=== PATIENT | female | born 1930 | race Caucasian/White ===

== ENCOUNTER 2016-06-11 23:47 | Inpatient (IN) | payer MEDICARE, OTHER ==
[~2016-06-11] VITALS: Ht 149.9 cm; Wt 69.0 kg
[~2016-06-11 23:47] MED LIST: BACL10TA PO; BUME0.5T; CART120C2 PO; COUM1TAB PO; DIGO.125 PO; GLIM1 PO; GLUCTAB; LEXA5TAB PO; METO25 PO; NEUR100C PO; POTA-243; SLOWTAB PO; SPIR25
[2016-06-11 23:49] VITALS: BP 224/114; PULSE 63; RESP 18; O2SAT 98
[2016-06-11 23:59] VITALS: BP 169/70; PULSE 61; RESP 18; O2SAT 100
[2016-06-12] VITALS (8 sets, daily range): BP systolic 114–191; BP diastolic 56–80; PULSE 63–76; RESP 16–17; TEMP 97.6–98; O2SAT 94–100
--- NOTE | 2016-06-12 00:36 | PD ---
HPI Chief Complaint: Cardiac Complaint Time Seen by Provider: 00:36 Travel History International Travel<30 days: No Contact w/Intl Traveler<30days: No Traveled to known affect area: No History of Present Illness HPI 85-year-old female came to the emergency room brought by EMS with history of sudden onset left arm pain that was excruciating at 10:30 PM. Patient says that the entire arm felt like it was cramping and felt heavy. Patient thought that she was having a stroke. This lasted for almost 2 hours. Patient says currently she feels like the sensation is slowly coming back and the pain has eased. The fingers are little bit tingly. Earlier because of the pain she was unable to move her fingers at all. She says her arm still feels cold compared to her right arm. She has never had this kind of pain in the past. No history of chest pain. Patient does have history of coronary artery disease and is on Plavix. She also has history of atrial fibrillation she said and is not on any anticoagulants. Her niece with her is here. Patient says that initially she wanted to go to [facility] but she was told that the machine was down and hence she should come to this emergency room by paramedics. Currently she is little anxious but otherwise appears to be comfortable. Vital signs are stable. No history of syncopal episode or shortness of breath. [facility] Past Medical History Narrative Medical List of her past medical, surgical, social and family history is reviewed from the nursing note. Atrial Fibrillation: Yes Congestive Heart Failure: Yes Diabetes: Yes Patient Takes Glucophage: No Hypertension: Yes ?: Not Past Surgical History Appendectomy: Yes Cholecystectomy: Yes Tonsillectomy: Yes Social History Alcohol Use: No Tobacco Use: No Substance Use: No Allergies-Medications (Allergen,Severity, Reaction): Coded Allergies: Sulfa (Verified Allergy, Mild, 06/11/16) Comments List of her allergies reviewed from the nursing note. Reported Meds & Prescriptions Reported Meds & Active Scripts Active Reported Requip (Ropinirole) 4 Mg Tab 4 Mg PO TID Hydrocodone-Acetaminophen 5-325 mg Tab 1 Tab PO Q4H PRN Escitalopram (Escitalopram Oxalate) 10 Mg Tab 10 Mg PO DAILY Omeprazole 40 Mg Cap 40 Mg PO DAILY Flexeril (Cyclobenzaprine HCl) 10 Mg Tab 10 Mg PO HS Trazodone (Trazodone HCl) 50 Mg Tab 50 Mg PO HS Plavix (Clopidogrel Bisulfate) 75 Mg Tab 75 Mg PO DAILY Probiotic (Lactobacillus Acidophilus) 1 Cap Cap 1 Cap PO BID Metoprolol Tartrate 25 Mg Tab 25 Mg PO DAILY Bumetanide 2 Mg Tab 2 Mg PO BID Aspirin 81 Mg Tabdr 81 Mg PO DAILY Ditropan (Oxybutynin Chloride) 5 Mg Tab 5 Mg PO DAILY Lisinopril 10 Mg Tab 10 Mg PO DAILY Lovastatin 20 Mg Tab 20 Mg PO HS Potassium Chloride Microencaps 10 Meq Tab 10 Meq PO DAILY Gabapentin 300 Mg Cap 400 Mg PO TID Carbidopa-Levodopa ER 50-200 Mg Tab 1 Tab PO DAILY Zafirlukast 20 Mg Tab 20 Mg PO DAILY Narrative Medication List of her home medications reviewed from the nursing note. Review of Systems Except as stated in HPI: all other systems reviewed are Neg Physical Exam Narrative GENERAL: Awake, alert, elderly, anxious, no obvious distress SKIN: Focused skin assessment warm/dry. HEAD: Atraumatic. Normocephalic. EYES: Pupils equal and round. No scleral icterus. No injection or drainage. ENT: No nasal bleeding or discharge. Mucous membranes pink and moist. NECK: Trachea midline. No JVD. CARDIOVASCULAR: Regular rate and rhythm. No murmur appreciated. RESPIRATORY: No accessory muscle use. Clear to auscultation. Breath sounds equal bilaterally. GASTROINTESTINAL: Abdomen soft, non-tender, nondistended. Hepatic and splenic margins not palpable. MUSCULOSKELETAL: No obvious deformities. No clubbing. No cyanosis. No edema. Left upper extremity appears to be cool and little pale compared to the right upper extremity. Distal pulses are weak on both upper extremity. Dopplerable pulses for ulna and radius present in the left extremity. NEUROLOGICAL: Awake and alert. No obvious cranial nerve deficits. Motor grossly within normal limits. Normal speech. PSYCHIATRIC: Appropriate mood and affect; insight and judgment normal. Data Data Last Documented VS Vital Signs Date Time Temp Pulse Resp B/P Pulse Ox O2 Delivery O2 Flow Rate FiO2 06/12/16 03:45 66 16 191/80 94 Room Air 06/11/16 23:59 1 Orders Electrocardiogram (06/12/16 00:54) Basic Metabolic Panel (Bmp) (06/12/16 00:54) Ckmb (Isoenzyme) Profile (06/12/16 00:54) Complete Blood Count With Diff (06/12/16 00:54) Magnesium (Mg) (06/12/16 00:54) Prothrombin Time / Inr (Pt) (06/12/16 00:54) Act Partial Throm Time (Ptt) (06/12/16 00:54) Troponin I (06/12/16 00:54) Chest, Single Ap (06/12/16 00:54) Ecg Monitoring (06/12/16 00:54) Bilateral Bp Monitoring (06/12/16 00:54) Iv Access Insert/Monitor (06/12/16 00:54) Oximetry (06/12/16 00:54) Oxygen Administration (06/12/16 00:54) Sodium Chloride 0.9% Flush (Ns Flush) (06/12/16 01:00) Cta Up Extrem W Iv Cont W 3d (06/12/16 ) Ropinirole Hcl (Requip) (06/12/16 03:00) Iohexol 350 Inj (Omnipaque 350 Inj) (06/12/16 03:22) Heparin Infusion SAMANTHA.Q1H (06/12/16 03:51) Heparin Inj (Heparin Inj) (06/12/16 04:00) Heparin Inj (Heparin Inj) (06/12/16 10:00) Heparin Inj (Heparin Inj) (06/12/16 10:00) Heparin-D5w Inj (Heparin-D5w Inj) (06/12/16 04:00) Act Partial Throm Time (Ptt) (06/12/16 03:51) Cbc No Diff, Includes Plts (06/12/16 03:51) Cbc No Diff, Includes Plts (06/15/16 06:00) Act Partial Throm Time (Ptt) (06/12/16 10:51) Occult Blood (Hemoccult) Stool (06/12/16 03:51) Admit Order (Ed Use Only) (06/12/16 04:15) Labs Laboratory Tests Test 06/12/16 06/12/16 01:00 04:10 White Blood Count 6.2 TH/MM3 6.7 TH/MM3 Red Blood Count 3.58 MIL/MM3 3.83 MIL/MM3 Hemoglobin 11.4 GM/DL 12.5 GM/DL Hematocrit 33.7 % 35.8 % Mean Corpuscular Volume 94.2 FL 93.7 FL Mean Corpuscular Hemoglobin 31.9 PG 32.8 PG Mean Corpuscular Hemoglobin 33.9 % 35.0 % Concent Red Cell Distribution Width 14.1 % 14.2 % Platelet Count 170 TH/MM3 179 TH/MM3 Mean Platelet Volume 8.5 FL 7.9 FL Neutrophils (%) (Auto) 58.3 % Lymphocytes (%) (Auto) 31.6 % Monocytes (%) (Auto) 7.6 % Eosinophils (%) (Auto) 2.2 % Basophils (%) (Auto) 0.3 % Neutrophils # (Auto) 3.6 TH/MM3 Lymphocytes # (Auto) 2.0 TH/MM3 Monocytes # (Auto) 0.5 TH/MM3 Eosinophils # (Auto) 0.1 TH/MM3 Basophils # (Auto) 0.0 TH/MM3 CBC Comment DIFF FINAL Differential Comment Prothrombin Time 13.1 SEC Prothromb Time International 1.2 RATIO Ratio Activated Partial 29.3 SEC 28.0 SEC Thromboplast Time Sodium Level 134 MEQ/L Potassium Level 4.6 MEQ/L Chloride Level 97 MEQ/L Carbon Dioxide Level 30.6 MEQ/L Anion Gap 6 MEQ/L Blood Urea Nitrogen 21 MG/DL Creatinine 0.86 MG/DL Estimat Glomerular Filtration 63 ML/MIN Rate Random Glucose 160 MG/DL Calcium Level 8.5 MG/DL Magnesium Level 2.1 MG/DL Total Creatine Kinase 43 U/L Troponin I 0.03 NG/ML MDM Medical Decision Making Medical Screen Exam Complete: Yes Emergency Medical Condition: Yes Medical Record Reviewed: Yes Interpretation(s) Twelve-lead EKG was reviewed by me. Normal sinus rhythm, left axis deviation, questionable old anterior and inferior WA, first-degree AV block, IVCD, nonspecific ST-T wave changes. Heart rate of 63 bpm. Differential Diagnosis Thromboembolic occlusion that may have resolved of the left upper extremity, ACS , muscular pain Narrative Course 2:16 AM blood test results of back and within acceptable limits. Patient said she has history of atrial fibrillation although she is in normal sinus rhythm currently. She could have history of paroxysmal A. fib and she is not anticoagulated. Given the history my suspicion is for thromboembolic event. I have ordered a CT angiogram of the left upper extremity. Her renal function is good. If the CT angiogram is negative I will admit her overnight for at least observation and a ALEJANDRO. Also given her coronary artery disease history serial enzymes should be done during the observation. Patient is aware of this plan and is comfortable with that. [address] angiogram of the left upper extremity shows a thrombus occlusion in the brachial artery. However there is some flow going to the radial artery. I discussed the case with Dr. Poole who is on for vascular surgery. He agreed with heparin bolus and drip and a ALEJANDRO. He will come to see the patient in an hour or so. Awaiting for the hospitalist to call back for admission. I have let the patient know about all these plans as well as the test result. She said her arm tingling was coming back. She is able to still move the arm. Critical Care Narrative Aggregate critical care time was 45 minutes. Time to perform other separately billable procedures was not included in the critical care time. My time did not include minutes spent treating any other patients simultaneously or on activities that did not directly contribute to the patient's treatment. The services I provided to this patient were to treat and/or prevent clinically significant deterioration that could result in: Brachial artery thrombosis, heparin bolus and drip I provided critical care services requiring my management, as noted below: Chart data review, documentation time, medication orders and management, vital sign assessments/reviewing monitor data, ordering and reviewing lab tests, ordering and interpreting/reviewing x-rays and diagnostic studies, care of the patient and discussion of the patient with the admitting physicians. Procedures EKG Prior to Arrival: No Physician Communication Physician Communication Dr. Poole Diagnosis Primary Impression: Brachial artery thrombosis Additional Impression: Left upper limb pain Admitting Information Admitting Physician Requests: Tomasa Jeong MD Jun 12, 2016 00:36
[2016-06-12] MEDS ORDERED: METO25TA3 PO (00:53)
[2016-06-12] MEDS ORDERED: TRAZ50TA12 PO (00:53)
[2016-06-12] MEDS ORDERED: LISI10TA3 PO (00:53)
[2016-06-12] MEDS ORDERED: PLAV75TA29 PO (00:53)
[2016-06-12] MEDS ORDERED: CARB50TA3 PO (00:53)
[2016-06-12] MEDS ORDERED: ASPI1TAB69 PO (00:53)
[2016-06-12] MEDS ORDERED: LOVA20TA PO (00:53)
[2016-06-12] MEDS ORDERED: BUME2TAB PO (00:53)
[2016-06-12] MEDS ORDERED: OXYB5TAB10 PO (00:53)
[2016-06-12] MEDS ORDERED: ZAFI1TAB4 PO (00:53)
[2016-06-12] MEDS ORDERED: REQU4TAB3 PO ×2 (00:53→02:27)
[2016-06-12] MEDS ORDERED: LACTCAP8 PO (00:53)
[2016-06-12] MEDS ORDERED: POTA10TA15 PO (00:53)
[2016-06-12] MEDS ORDERED: GABA300C5 PO (00:53)
[2016-06-12] MEDS ORDERED: CYCL1TAB29 PO (00:54)
[2016-06-12] MEDS ORDERED: SODIUM CHLORIDE 0.9% FLUSH 10 ML FLUSH IVF PRN (01:00)
[2016-06-12] MEDS ORDERED: HYDR-3516 PO (01:02)
[2016-06-12] MEDS ORDERED: ESCI10TA PO (01:02)
[2016-06-12] MEDS ORDERED: OMEP40CA2 PO (01:02)
[2016-06-12 01:23] LABS: AUTOMATED NEUTROPHIL # 3.6 TH/MM3 (1.8-7.7); BASOPHIL % 0.3 % (0.0-2.0); EOSINOPHIL # 0.1 TH/MM3 (0-0.4); EOSINOPHIL % 2.2 % (0.0-4.0); HEMATOCRIT 33.7 % (35.0-46.0); HEMO FLAGS DIFF FINAL; LYMPH % 31.6 % (9.0-44.0); MEAN CELL VOLUME 94.2 FL (80.0-100.0); MEAN CORPUSCULAR HEMOGLOBIN 31.9 PG (27.0-34.0); MEAN CORPUSCULAR HGB CONC 33.9 % (32.0-36.0); MONO % 7.6 % (0.0-8.0); NEUT % 58.3 % (16.0-70.0); PLATELET COUNT 170 TH/MM3 (150-450); RED BLOOD COUNT 3.58 MIL/MM3 (4.00-5.30); RED CELL DISTRIBUTION WIDTH 14.1 % (11.6-17.2); WHITE BLOOD COUNT 6.2 TH/MM3 (4.0-11.0)
[2016-06-12 01:33] LABS: APTT (PATIENT) 29.3 SEC (24.3-30.1); INTERNATIONAL NORMALIZED RATIO 1.2 RATIO; PROTHROMBIN TIME - PATIENT 13.1 SEC (9.8-11.6)
--- NOTE | 2016-06-12 01:37 | RADRPT ---
EXAM DATE/TIME: 06/12/2016 01:14 [facility] COMPARISON: No previous studies available for comparison. INDICATIONS : Left sided chest pain, numbness in left arm starting today MEDICAL HISTORY : None. SURGICAL HISTORY : None. ENCOUNTER: Initial ACUITY: 1 day PAIN SCORE: 5/10 LOCATION: Left chest FINDINGS: A single view of the chest demonstrates a patchy infiltrate in the left lung base. Otherwise, the res t of the lungs are grossly clear. There is some mild pulmonary venous congestion. The heart size is m ildly enlarged. There are no pleural effusions. There is osteopenia of the bony structures.. CONCLUSION: 1. Mild infiltrate in the left lung base. 2. Pulmonary venous congestion. Royal Anderson MD on June 12, 2016 at 1:35 Board Certified Radiologist. This report was verified electronically.
[2016-06-12 01:47] LABS: BICARBONATE 30.6 MEQ/L (21.0-32.0); MAGNESIUM 2.1 MG/DL (1.5-2.5); POTASSIUM 4.6 MEQ/L (3.5-5.1)
[2016-06-12] MEDS ORDERED: IOHEXOL 350 MG/ML 10 ML VIAL (for RAD DIAG) IV ONE (03:22)
--- NOTE | 2016-06-12 03:29 | RADRPT ---
EXAM DATE/TIME: 06/12/2016 03:01 [facility] COMPARISON: No previous studies available for comparison. INDICATIONS : Left arm pain. Evaluate for occlusion. IV CONTRAST: 96 cc Omnipaque 350 (iohexol) IV RADIATION DOSE: 22.53 CTDIvol (mGy) MEDICAL HISTORY : Hypertension. Prior humerus fractures. Diabetes. SURGICAL HISTORY : Appendectomy. Cholecystectomy. ENCOUNTER: Initial ACUITY: 1 day PAIN SCALE: 10/10 LOCATION: Left arm. TECHNIQUE: Volumetric scanning was performed using a multirow detector CT scanner. Using automated exposure cont rol and adjustment of the mA and/or kV according to patient size, radiation dose was kept as low as r easonably achievable to obtain optimal diagnostic quality images. The data was post processed with a variety of visualization algorithms including full-volume maximum intensity projection, multiplanar sliding thin-slab reformation, curved-planar reformation, and surface-rendering techniques. Using au tomated exposure control and adjustment of the mA and/or kV according to patient size, radiation dose was kept as low as reasonably achievable to obtain optimal diagnostic quality images. 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 The left subclavian artery is patent at its origin with calcified plaques. The left axillary artery is patent. However, there is segmental occlus ion of the proximal left brachial artery for approximately 5 cm in the upper left arm. There is recon stitution of the mid to distal brachial artery with good flow to the antecubital fossa. There are ath erosclerotic changes involving the radial and ulnar artery in the forearm there appears to be multipl e areas of irregularity and stenosis involving the ulnar artery. The radial artery appears to be chang nt down to the wrist. CONCLUSION: 1. Focal segmental occlusion of the left brachial artery for about 5 cm in the upper left arm. 2. 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 3. There is flow in the radial artery down to the level of the wrist. Royal Anderson MD on June 12, 2016 at 3:22 Board Certified Radiologist. This report was verified electronically.
[2016-06-12 04:19] LABS: HEMATOCRIT 35.8 % (35.0-46.0); MEAN CELL VOLUME 93.7 FL (80.0-100.0); MEAN CORPUSCULAR HEMOGLOBIN 32.8 PG (27.0-34.0); PLATELET COUNT 179 TH/MM3 (150-450); RED BLOOD COUNT 3.83 MIL/MM3 (4.00-5.30); RED CELL DISTRIBUTION WIDTH 14.2 % (11.6-17.2); REVIEW FLAG FINAL; WHITE BLOOD COUNT 6.7 TH/MM3 (4.0-11.0)
[2016-06-12] MEDS: HEPARIN-D5W INJ 250 ML IV SCH (04:38)
[2016-06-12] MEDS: HEPARIN SODIUM - IV 10,000 UNITS/10 ML VIAL IV ONE ×2 (04:38→04:40)
[2016-06-12] MEDS ORDERED: SODIUM CHLORIDE 0.9% FLUSH 10 ML FLUSH IV FLUSH PRN (05:00)
[2016-06-12] MEDS ORDERED: NALOXONE HCL 0.4 MG/ML AMP IV PRN (05:00)
[2016-06-12] MEDS ORDERED: ONDANSETRON HCL 4 MG/2 ML VIAL IVP PRN (05:00)
--- NOTE | 2016-06-12 05:26 | HHI.HP ---
[facility] Service [facility] Primary Care Physician Ashley Crook Admission Diagnosis patient artery thrombosis, left upper extremity pain Diagnoses: Travel History International Travel<30 Days: No Contact w/Intl Traveler <30 Da: No Traveled to Known Affected Are: No History of Present Illness History from patient, your physician communication, and review of medical records. Patient reported that she came to the hospital because yesterday night, she all of a sudden started getting left arm numbness, weakness, with swelling and pain. She states she thought she was having a stroke. She stated that she also noted her left hand to be much colder than her right. However denies any bluish discoloration. Patient has history of atrial fibrillation. She states she is on aspirin and Plavix at home. She states the Plavix was started recently. She reports she saw her registered dietitian yesterday. She was told that she was doing quite well and that she needs to follow up only every 5 months or so. She reports that at one point she was on Coumadin. But states this was stopped a few years ago. She denies any prior history of GI bleeds. Denies falling down frequently. However she does live alone, and is at high risk of falls secondary to ambulatory status. c/o constipation - was on hydrocodone no blood in stool or urine no chest apins, no shrotness, no syncope Review of Systems Except as stated in HPI: all other systems reviewed are Neg Past Family Social History Past Medical History dm htn cad- hx of silent mi chf afib perirectal cancer- s/p resection Past Surgical History perirectal cancer resection tonilectomy appendectomy cholecystectomy Reported Medications Last 48 hours Impressions Chest X-Ray 06/12/16 0054 Signed Impressions: Service Date/Time: May 01:14 - CONCLUSION: 1. Mild infiltrate in the left lung base. 2. Pulmonary venous congestion. Royal Anderson MD Upper Extremity CTA 06/12/16 0000 Signed Impressions: Service Date/Time: May 03:01 - CONCLUSION: 1. Focal segmental occlusion of the left brachial artery for about 5 cm in the upper left arm. 2. 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 3. There is flow in the radial artery down to the level of the wrist. Royal Anderson MD Allergies: Coded Allergies: Sulfa (Verified Allergy, Mild, 06/11/16) Social History used to smoke in her early 20s for a short while used to drink, but quit many years ago no longer driving Physical Exam Vital Signs Vital Signs Date Time Temp Pulse Resp B/P Pulse Ox O2 Delivery O2 Flow Rate FiO2 06/12/16 03:45 66 16 191/80 94 Room Air 06/11/16 23:59 61 18 169/70 100 Nasal Cannula 1 06/11/16 23:52 66 06/11/16 23:49 63 18 224/114 98 Physical Exam GENERAL: This is a well-nourished, well-developed patient, in no apparent distress. SKIN: No rashes, ecchymoses or lesions. Cool and dry. HEAD: Atraumatic. Normocephalic. No temporal or scalp tenderness. EYES: No scleral icterus. No injection or drainage. ENT: Nose without bleeding, purulent drainage or septal hematoma. Airway patent. NECK: Trachea midline. No JVD CARDIOVASCULAR: Regular rate and rhythm without murmurs, gallops, or rubs. RESPIRATORY: Clear to auscultation. Breath sounds equal bilaterally. No wheezes , rales, or rhonchi. GASTROINTESTINAL: Abdomen soft, non-tender, nondistended. No guarding. MUSCULOSKELETAL: Extremities without clubbing, cyanosis, or edema. No calf tenderness left upper extremitycold clammy. Normal skin color. Radial pulse is not palpable. NEUROLOGICAL: Awake and alert. Motor and sensory grossly within normal limits. Normal speech. Laboratory Laboratory Tests Test 06/12/16 06/12/16 01:00 04:10 White Blood Count 6.2 6.7 Red Blood Count 3.58 3.83 Hemoglobin 11.4 12.5 Hematocrit 33.7 35.8 Mean Corpuscular Volume 94.2 93.7 Mean Corpuscular Hemoglobin 31.9 32.8 Mean Corpuscular Hemoglobin 33.9 35.0 Concent Red Cell Distribution Width 14.1 14.2 Platelet Count 170 179 Mean Platelet Volume 8.5 7.9 Neutrophils (%) (Auto) 58.3 Lymphocytes (%) (Auto) 31.6 Monocytes (%) (Auto) 7.6 Eosinophils (%) (Auto) 2.2 Basophils (%) (Auto) 0.3 Neutrophils # (Auto) 3.6 Lymphocytes # (Auto) 2.0 Monocytes # (Auto) 0.5 Eosinophils # (Auto) 0.1 Basophils # (Auto) 0.0 CBC Comment DIFF FINAL Differential Comment Prothrombin Time 13.1 Prothromb Time International 1.2 Ratio Activated Partial 29.3 28.0 Thromboplast Time Sodium Level 134 Potassium Level 4.6 Chloride Level 97 Carbon Dioxide Level 30.6 Anion Gap 6 Blood Urea Nitrogen 21 Creatinine 0.86 Estimat Glomerular Filtration 63 Rate Random Glucose 160 Calcium Level 8.5 Magnesium Level 2.1 Total Creatine Kinase 43 Troponin I 0.03 Result Diagram: 06/12/16 0410 06/12/16 0100 Imaging Last 72 hours Impressions Chest X-Ray 06/12/16 0054 Signed Impressions: Service Date/Time: May 01:14 - CONCLUSION: 1. Mild infiltrate in the left lung base. 2. Pulmonary venous congestion. Royal Anderson MD Upper Extremity CTA 06/12/16 0000 Signed Impressions: Service Date/Time: May 03:01 - CONCLUSION: 1. Focal segmental occlusion of the left brachial artery for about 5 cm in the upper left arm. 2. 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 3. There is flow in the radial artery down to the level of the wrist. Royal Anderson MD Assessment and Plan Assessment and Plan Impression: Acute limb threatening ischemialikely due to clots from atrial fibrillation Atrial fibrillation Hypertension Diabetes CADper patient. With history of silent [place]. CHF History of perirectal cancerstatus post resection Plan: Patient was started on heparin drip in ER. We'll follow protocol. Her case was discussed with vascular surgeon occupational health nurse Dr. Wells by ER physician. He is on his way to evaluate the patient and possibly we would take patient for intervention. Would also consult patient's registered dietitian as to long-term anticoagulation. Patient has history of A. fib with chads score greater than 2. Would need full term anticoagulation. However she is elderly lady who lives by herself. For her chronic medical conditions, would continue home meds. Hold oral hypoglycemics and long acting insulin. We'll monitor fingersticks and cover with sliding scale coverage. DVT prophylaxison heparin drip. Physician Certification 2 Midnight Certification Type: Admission for Inpatient Services Order for Inpatient Services The services are ordered in accordance with Medicare regulations or non- Medicare payer requirements, as applicable. In the case of services not specified as inpatient-only, they are appropriately provided as inpatient services in accordance with the 2-midnight benchmark. Estimated LOS (days): 3 days is the estimated time the patient will need to remain in the hospital, assuming treatment plan goals are met and no additional complications. Post-Hospital Plan: Home Pretty Brown MD Jun 12, 2016 05:26
[2016-06-12] MEDS ORDERED: hydrALAZINE HCL 20 MG/ML VIAL IV PUSH PRN (05:30)
[2016-06-12] MEDS ORDERED: DEXTROSE 50% IN WATER 50 ML VIAL(D50) IV PUSH PRN (07:30)
[2016-06-12] MEDS ORDERED: GLUCAGON 1 MG/ML VIAL OTHER PRN (07:30)
--- NOTE | 2016-06-12 08:23 | PD.VS.CON ---
History of Present Illness Chief Complaint: L UE pain, numbness Consult Requested by: ED History of Present Illness 85 yo female with acute L UE pain in her hand last night at 2230, slowly resolved and now only c/o mild tingling. No motor dysfunction. No prior such events. Lives at home and mostly independent. Since brought to the ED, she has been appropriately put on a heparin gtt. A CTA showed L brachial artery occlusion. Past/Family/Social History Past Medical History DM "CHF" Past Surgical History appy jung Social History after 63 years Home Medications Reported Medications Ropinirole (Requip)4 Mg Tab4 Mg PO TID #90 TAB Ref 0 06/12/16 Hydrocodone-Acetaminophen 5-325 mg Tab1 Tab PO Q4H PRN (PAIN) Ref 0 06/12/16 Escitalopram 10 Mg Tab10 Mg PO DAILY #30 TAB Ref 0 06/12/16 Omeprazole 40 Mg Cap40 Mg PO DAILY #30 CAP Ref 0 06/12/16 Cyclobenzaprine (Flexeril)10 Mg Tab10 Mg PO HS #90 TAB Ref 0 06/12/16 Trazodone 50 Mg Tab50 Mg PO HS #30 TAB Ref 0 06/12/16 Clopidogrel (Plavix)75 Mg Tab75 Mg PO DAILY #30 TAB Ref 0 06/12/16 Lactobacillus Acidophilus (Probiotic)1 Cap Cap1 Cap PO BID #90 CAP Ref 0 06/12/16 Metoprolol Tartrate 25 Mg Tab25 Mg PO DAILY #30 TAB Ref 0 06/12/16 Bumetanide 2 Mg Tab2 Mg PO BID Ref 0 06/12/16 Aspirin 81 Mg Tabdr81 Mg PO DAILY 06/12/16 Oxybutynin (Ditropan)5 Mg Tab5 Mg PO DAILY #60 TAB Ref 0 06/12/16 Lisinopril 10 Mg Tab10 Mg PO DAILY #30 TAB Ref 0 06/12/16 Lovastatin 20 Mg Tab20 Mg PO HS #30 TAB Ref 0 06/12/16 Potassium Chloride Microencaps 10 Meq Tab10 Meq PO DAILY #30 TAB Ref 0 06/12/16 Gabapentin 300 Mg Rnk617 Mg PO TID #90 CAP Ref 0 06/12/16 Carbidopa-Levodopa ER 50-200 Mg Tab1 Tab PO DAILY #30 TAB Ref 0 06/12/16 Zafirlukast 20 Mg Tab20 Mg PO DAILY #60 TAB Ref 0 06/12/16 Discontinued Reported Medications Ropinirole (Requip)4 Mg Tab4 Mg PO ONCE #1 TAB Ref 0 06/12/16 Baclofen (Lioresal)10 Mg Tab PO DIRECTED Ref 0 11/26/07 Warfarin Sodium (Coumadin 1 mg)1 Mg Tab PO DIRECTED Ref 0 11/26/07 Magnesium Chloride-Calcium Car (Slow-Mag)64 Mg Tab PO Ref 0 UNKNOWN DOSE 11/26/07 Spironolactone (Aldactone 25 mg)25 Mg Tab Ref 0 UNKNOWN DOSE 11/26/07 Metformin XR 24 HR (Glucophage XR 24 HR)500 Mg Tab DIRECTED Ref 0 UNKNOWN DOSE 11/26/07 Escitalopram Oxalate (Lexapro)5 Mg Tab PO DIRECTED Ref 0 UNKNOWN DOSE 11/26/07 Glimepiride (Amaryl)1 Mg Tab PO DIRECTED Ref 0 11/26/07 Digoxin (Lanoxin)0.125 Mg Tab PO DIRECTED Ref 0 UNKNOWN DOSE 11/26/07 DILTIAZEM XT 120 mg (Cartia) (Cartia XT 120 mg)120 Mg/24 Hr Cap PO DIRECTED Ref 0 11/26/07 Coded Allergies: Sulfa (Verified Allergy, Mild, 06/11/16) Review of Systems Constitutional: DENIES: Fatigue, Fever, Weight gain, Dizziness Cardiovascular: COMPLAINS OF: Palpitations, Lower Extremity Edema, DENIES: Chest pain Physical Exam Vitals/I&O Date Time Temp Pulse Resp B/P Pulse Ox O2 Delivery O2 Flow Rate FiO2 06/12/16 07:23 71 17 173/75 97 Room Air 06/12/16 06:46 63 16 175/77 98 Room Air 06/12/16 05:43 65 16 187/79 97 Room Air 06/12/16 03:45 66 16 191/80 94 Room Air 06/11/16 23:59 61 18 169/70 100 Nasal Cannula 1 06/11/16 23:52 66 06/11/16 23:49 63 18 224/114 98 06/12/16 06/12/16 06/12/16 07:00 15:00 23:00 Output Total 1500 ml Balance -1500 ml Neuro: Awake, alert, no distress HEENT: NC/AT anicteric sclera Neck: no JVD Heart: reg rate, no M Lungs: clear B Vascular: no palpable pulses L UE - brachial or radial Extremities: 5/5 motor strength B UE Laboratory Tests Test 06/12/16 06/12/16 01:00 04:10 White Blood Count 6.2 6.7 Red Blood Count 3.58 3.83 Hemoglobin 11.4 12.5 Hematocrit 33.7 35.8 Mean Corpuscular Volume 94.2 93.7 Mean Corpuscular Hemoglobin 31.9 32.8 Mean Corpuscular Hemoglobin 33.9 35.0 Concent Red Cell Distribution Width 14.1 14.2 Platelet Count 170 179 Mean Platelet Volume 8.5 7.9 Neutrophils (%) (Auto) 58.3 Lymphocytes (%) (Auto) 31.6 Monocytes (%) (Auto) 7.6 Eosinophils (%) (Auto) 2.2 Basophils (%) (Auto) 0.3 Neutrophils # (Auto) 3.6 Lymphocytes # (Auto) 2.0 Monocytes # (Auto) 0.5 Eosinophils # (Auto) 0.1 Basophils # (Auto) 0.0 CBC Comment DIFF FINAL Differential Comment Prothrombin Time 13.1 Prothromb Time International 1.2 Ratio Activated Partial 29.3 28.0 Thromboplast Time Sodium Level 134 Potassium Level 4.6 Chloride Level 97 Carbon Dioxide Level 30.6 Anion Gap 6 Blood Urea Nitrogen 21 Creatinine 0.86 Estimat Glomerular Filtration 63 Rate Random Glucose 160 Calcium Level 8.5 Magnesium Level 2.1 Total Creatine Kinase 43 Troponin I 0.03 Last 48 hours Impressions Chest X-Ray 06/12/16 0054 Signed Impressions: Service Date/Time: May 01:14 - CONCLUSION: 1. Mild infiltrate in the left lung base. 2. Pulmonary venous congestion. Royal Anderson MD Upper Extremity CTA 06/12/16 0000 Signed Impressions: Service Date/Time: May 03:01 - CONCLUSION: 1. Focal segmental occlusion of the left brachial artery for about 5 cm in the upper left arm. 2. 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 3. There is flow in the radial artery down to the level of the wrist. Royal Anderson MD Assessment and Plan Plan The patient has acute L UE ischemia, likely from arterial embolism. She is motor intact and on a heparin gtt. Needs TTE sometime this admission. To OR this morning for L BRACHIAL ARTERY EMBOLECTOMY. I discussed the procedure , risks and benefits with the patient and she understands and has provided informed consent. Pt arm marked. Continue hep gtt. John Paul Poole MD FACS dog daycare provider [facility] - Heart and Vascular Surgery at [facility] [phone] John Paul Poole MD Jun 12, 2016 08:23
[2016-06-12] MEDS: BUMETANIDE 1 MG TAB PO SCH ×2 (09:00→21:40)
[2016-06-12] MEDS: METOPROLOL TARTRATE 25 MG TAB PO SCH (09:00)
[2016-06-12] MEDS: CLOPIDOGREL 75 MG TAB PO SCH (09:00)
[2016-06-12] MEDS: ESCITALOPRAM OXALATE 10 MG TAB PO SCH (09:00)
[2016-06-12] MEDS: LISINOPRIL 10 MG TAB PO SCH (09:00)
[2016-06-12] MEDS: LACTOBACILLUS ACIDOPHILUS TAB PO SCH ×2 (09:00→21:41)
[2016-06-12] MEDS: ZAFIRLUKAST 20 MG TAB PO SCH (09:00)
[2016-06-12] MEDS: OXYBUTYNIN CHLORIDE 5 MG TAB PO SCH (09:00)
[2016-06-12] MEDS: LEVODOPA/CARBIDOPA 1 TAB TABCR PO SCH (09:00)
[2016-06-12] MEDS: POTASSIUM CHLORIDE 10 MEQ CONTROLLED RELEASE TAB PO SCH (09:00)
[2016-06-12] MEDS: ASPIRIN EC 81 MG TABEC PO SCH (09:00)
[2016-06-12] MEDS: GABAPENTIN 400 MG CAP PO SCH ×3 (09:00→16:41)
[2016-06-12] MEDS: SODIUM CHLORIDE 0.9% FLUSH 10 ML FLUSH IV FLUSH SCH ×2 (09:00→21:00)
[2016-06-12] MEDS: PANTOPRAZOLE SOD 40 MG DELAYED RELEASE TAB PO SCH (09:00)
[2016-06-12] MEDS ORDERED: ACETAMINOPHEN 1000 MG/100 ML VIAL IV ONE (09:42)
[2016-06-12] MEDS ORDERED: FAMOTIDINE 20 MG/2 ML VIAL ONE (09:42)
[2016-06-12] MEDS ORDERED: fentaNYL CITRATE 250 MCG/5 ML AMP ONE (09:43)
[2016-06-12] MEDS ORDERED: MIDAZOLAM HCL 2 MG/2 ML VIAL ONE (09:43)
[2016-06-12] MEDS ORDERED: ENALAPRILAT 1.25 MG/ML VIAL IV PUSH PRN (09:45)
[2016-06-12] MEDS ORDERED: HEPARIN SODIUM - IV 10,000 UNITS/10 ML VIAL ONE (09:50)
[2016-06-12] MEDS ORDERED: HEPARIN SODIUM - IV 10,000 UNITS/10 ML VIAL IV PRN ×2 (10:00)
[2016-06-12] MEDS ORDERED: ceFAZolin INJ 1,000 MG VIAL ONE (10:31)
[2016-06-12] MEDS ORDERED: THROMBIN (TOPICAL) 20,000 UNIT SPRAY KIT ONE (11:01)
--- NOTE | 2016-06-12 11:28 | HHI.PR ---
Immediate Post Op Note Procedure Date: Jun 12, 2016 Pre Op Diagnosis: L brachial artery embolism Post Op Diagnosis: L brachial artery embolism Surgeon: John Paul Poole Director Payment(s): Cr Waldron Procedure: L brachial artery embolectomy Findings: acute appearing benign clot in L brachial artery, removed without difficulty Additional Information: Palpable radial pulse at conclusion Complications: none Specimen(s) removed: thrombus - not for pathology Estimated blood loss: 50mL Anesthesia: General Fluids: 400mL IVF Patient to: PACU Date/Time of Procedure: SEE SURGICAL CARE RECORD John Paul Poole MD Jun 12, 2016 11:28
[2016-06-12] MEDS ORDERED: ONDANSETRON HCL 4 MG/2 ML VIAL IV PUSH ONE (12:00)
[2016-06-12] MEDS ORDERED: NEOSTIGMINE 3 MG/3 ML SYR IV ONE (12:00)
[2016-06-12] MEDS ORDERED: PROPOFOL 200 MG/20 ML AMP IV ONE (12:00)
[2016-06-12] MEDS ORDERED: ePHEDrine/NS 25 MG/5 ML SYR IV ONE (12:00)
[2016-06-12 14:03] LABS: APTT (PATIENT) 264.9 SEC (24.3-30.1)
--- NOTE | 2016-06-12 18:02 | EKG ---
Date Performed: 06/11/2016 Time Performed: 23:51:26 PTAGE: 85 years EKG: Sinus rhythm WITH FIRST DEGREE AV BLOCK MARKED LEFT AXIS DEVIATION Intraventricular conduction delay POSSIBLE ANT ERIOR MYOCARDIAL INFARCTION ABNORMAL ECG Compared to PREVIOUS TRACING fo 11/26/2007, sinus rhythm has replaced atrial fibrillation. DOCTOR: Mathew Thompson Interpretating Date/Time 06/12/2016 18:01:12
[2016-06-12 18:56] LABS: APTT (PATIENT) 31.4 SEC (24.3-30.1)
--- NOTE | 2016-06-12 20:47 | HHI.PR ---
Addendum to Inpatient Note Addendum Reason: Additional Documentation Additional Information Patient is sp left brachial embolectomy. States that still gets her hand numb at times but denies any pain. Denies cp and sob. states had dinner. Patient is AAox3 and left upper extremity is dressed, there is iried blood on the inner upper part of the arm. S1S2, clear lungs. Patient with acute limb ischemia likely from cardioembolic source. Patient is sp left brachial embolectomy. fu 2D Echocardiogram Jacobo Felipe MD Jun 12, 2016 20:47
--- NOTE | 2016-06-12 20:47 | MB ---
cc: SINDY EVANS DATE OF CONSULTATION 06/12/16 1931 REASON FOR CONSULTATION Acute arterial embolism. HISTORY OF PRESENT ILLNESS The patient is a very pleasant 85-year-old white female, followed in our office by Dr. Sami Jordan, with a history of paroxysmal atrial fibrillation/flutter, diabetes, hypertension, coronary artery disease who presented to the hospital with severe left arm pain. She is now status post left brachial artery embolectomy. The patient states the pain started about 24 hours prior to admission, sudden onset. She denies any recent angina, change in chronic dyspnea, dizziness, syncope, near-syncope, palpitations, paroxysmal nocturnal dyspnea. Occasionally, she experiences dependent pedal edema. At the present time, she is resting comfortably with much improved left arm pain. PAST MEDICAL HISTORY 1. Atrial fibrillation/flutter, paroxysmal, probably dating back to at least 2007. 2. Diabetes 3. Hypertension 4. Hyperlipidemia. 5. Coronary artery disease with cardiac catheterization 02/29/2016 showing normal ejection fraction 55-60%, 50% distal LAD, 75% mid and 99% distal LAD stenoses which were angioplastied, minor left circumflex and right coronary disease. Apparently, the LAD vessel was very small and not amenable to stenting. PAST SURGICAL HISTORY 1. Left brachial artery embolectomy today. 2. Appendectomy 3. Cholecystectomy. 4. Tonsillectomy. MEDICATIONS Cardiac medications at home 1. Plavix 75 mg daily. 2. Metoprolol tartrate 25 mg daily. 3. Bumex 2 mg b.i.d. 4. Aspirin 81 mg daily. 5. Lisinopril 10 mg daily. 6. Lovastatin 20 mg q.h.s. 7. Potassium chloride 10 Shashank once daily. ALLERGIES SULFA FAMILY HISTORY Noncontributory. SOCIAL HISTORY The patient denies alcohol or tobacco abuse. REVIEW OF SYSTEMS As in the history of present illness otherwise negative or noncontributory. She also denies headache, visual changes, unilateral weakness or numbness, abdominal pain, melena, dyspepsia, bright red blood per rectum. PHYSICAL EXAMINATION VITAL SIGNS: Blood pressure 155/67 with a pulse of 76, respirations 16. GENERAL: She is a well-developed, well-nourished white female in no acute distress HEENT: Jugular venous pressure is normal. Carotid pulses are 2+ bilaterally and without bruits. CHEST: Examination of the chest reveals clear lung gee. CARDIAC: Regular rhythm and rate without S3-S4 or murmur. ABDOMEN: She has a soft, nontender abdomen. Bowel sounds are present. There is no definite hepatosplenomegaly. EXTREMITIES: No clubbing or cyanosis. There is trace pretibial edema bilaterally. LABORATORY DATA Normal CBC. Potassium 4.6, BUN 21, creatinine 0.86, INR 1.2. IMAGING STUDIES Chest x-ray shows mild infiltrate in the left lung base, pulmonary venous congestion. CARDIOLOGY STUDIES EKG from 06/11/2016 at 11:51 p.m. shows sinus rhythm, nonspecific intraventricular conduction delay, left axis deviation. IMPRESSION Acute left brachial artery occlusion likely due to cardioembolic phenomena in this 85-year-old white female with a history of diabetes, hypertension, coronary artery disease. Review of EKGs and Holter monitors dating back to 2007 show that she has had a history of paroxysmal atrial fibrillation/flutter. I suspect she developed intracardiac thrombus which embolized to her left arm. 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 There is no definite evidence for acute coronary syndrome. The etiology of the pulmonary venous congestion on chest x-ray is not entirely clear. Her ejection fraction by cardiac catheterization earlier this year was normal. At this time, she is in sinus rhythm. RECOMMENDATIONS 1. Would recommend therapy with Xarelto when okay from a surgical standpoint; from a cardiac standpoint her Plavix can be stopped. 2. Would continue daily baby aspirin. 3. Check a 2-D echo to rule out any persistent cardiac source of embolism. MD KALIN Bailey/ /5:01 PM /8:38 PM JACI
[2016-06-12] MEDS: PRAVASTATIN SOD 20 MG TAB PO SCH (21:41)
[2016-06-12] MEDS: traZODone HCL 50 MG TAB PO SCH (21:41)
[2016-06-12] MEDS: CYCLOBENZAPRINE HCL 10 MG TAB PO SCH (21:41)
[2016-06-12] MEDS: ACETAMINOPHEN/HYDROcodone 325 MG/5 MG TAB PO PRN (21:49)
[2016-06-13] VITALS (7 sets, daily range): BP systolic 74–125; BP diastolic 40–58; PULSE 68–94; RESP 16–20; TEMP 97.7–98.4; O2SAT 93–99
[2016-06-13 02:42] LABS: AUTOMATED NEUTROPHIL # 4.4 TH/MM3 (1.8-7.7); BASOPHIL % 0.4 % (0.0-2.0); EOSINOPHIL # 0.1 TH/MM3 (0-0.4); EOSINOPHIL % 2.1 % (0.0-4.0); HEMATOCRIT 28.6 % (35.0-46.0); HEMO FLAGS DIFF FINAL; LYMPH % 26.3 % (9.0-44.0); LYMPHOCYTE # 1.8 TH/MM3 (1.0-4.8); MEAN CELL VOLUME 94.1 FL (80.0-100.0); MEAN CORPUSCULAR HEMOGLOBIN 31.8 PG (27.0-34.0); MEAN CORPUSCULAR HGB CONC 33.8 % (32.0-36.0); MONO % 6.3 % (0.0-8.0); NEUT % 64.9 % (16.0-70.0); PLATELET COUNT 167 TH/MM3 (150-450); RED BLOOD COUNT 3.04 MIL/MM3 (4.00-5.30); RED CELL DISTRIBUTION WIDTH 14.2 % (11.6-17.2); WHITE BLOOD COUNT 6.8 TH/MM3 (4.0-11.0)
[2016-06-13 02:51] LABS: APTT (PATIENT) 81.9 SEC (24.3-30.1)
[2016-06-13 02:55] LABS: BICARBONATE 28.8 MEQ/L (21.0-32.0); POTASSIUM 4.4 MEQ/L (3.5-5.1)
--- NOTE | 2016-06-13 09:29 | PD.CARD.PN ---
Subjective Subjective Remarks Feels "good". No dyspnea, CP, palpitations, dizziness, left arm pain. Objective Medications Item Value Date Time Pravastatin Sodium 20 mg 06/12/16 2100 (Pravachol) HS/PO 06/12/162140 Enalaprilat 1.25 mg 06/12/16 0945 (Vasotec Inj) Q6H PRN/IV PUSH Aspirin 81 mg 06/12/16 0900 (Ecotrin Ec) DAILY/PO Bumetanide 2 mg 06/12/16 0900 (Bumetanide) BID/PO 06/12/16 214 Clopidogrel 75 mg 06/12/16 0900 Bisulfate DAILY/PO (Plavix) Lisinopril 10 mg 06/12/16 0900 (Prinivil) DAILY/PO Metoprolol 25 mg 06/12/16 0900 Tartrate DAILY/PO (Lopressor) Potassium Chloride 10 meq 06/12/16 0900 (KCl) DAILY/PO Hydralazine HCl 10 mg 06/12/16 0530 (Apresoline Inj) Q30M PRN/IV PUSH 06/12/16 0542 Heparin Sodium/ 250 ml @ 0 mls/hr 06/12/16 0400 Dextrose TITRATE/IV 06/12/16 0438 Vital Signs / I&O Vital Signs Date Time Temp Pulse Resp B/P Pulse Ox O2 Delivery O2 Flow Rate FiO2 06/13/16 08:00 97.7 81 18 125/58 95 06/13/16 04:00 98.1 72 20 107/55 98 06/13/16 04:00 Room Air 06/13/16 00:01 Room Air 06/13/16 00:01 97.9 70 16 105/53 94 06/12/16 20:34 72 06/12/16 20:00 Room Air 06/12/16 20:00 98.0 67 16 114/56 100 06/12/16 16:00 97.6 76 16 155/67 99 06/12/16 14:50 97.7 71 18 118/59 96 Room Air 06/12/16 14:00 73 20 142/63 97 Room Air 06/12/16 13:00 72 15 145/60 97 Room Air 06/12/16 12:30 75 20 148/67 99 Room Air 06/12/16 12:15 93 19 108/52 95 Room Air 06/12/16 12:00 83 17 143/67 96 Room Air 06/12/16 11:48 98.4 84 16 147/70 100 Nasal Cannula 2 I/O 06/12/16 06/12/16 06/12/16 06/13/16 06/13/16 06/13/16 07:00 15:00 23:00 07:00 15:00 23:00 Intake Total 700 ml 752 ml 180 ml Output Total 1500 ml 400 ml Balance -1500 ml 300 ml 752 ml 180 ml Intake Oral 720 ml 180 ml IV Total 32 ml Other 700 ml Output Urine Total 1500 ml 350 ml Estimated Blood Loss 50 ml # Voids 8 1 4 2 # Bowel Movements 0 Physical Exam GENERAL: Well developed, well nourished. No acute distress. HEENT: Jugular venous pressure is normal. CHEST: Lungs clear to auscultation bilaterally. Unlabored respiratory effort. CARDIAC: Regular rate and rhythm without S3, S4, or murmur. ABDOMEN: Soft, nontender, no hepatosplenomegaly. Bowel sounds present. EXTREMITIES: No clubbing, cyanosis, or edema. Laboratory Laboratory Tests Test 06/12/16 06/12/16 06/13/16 06/13/16 13:05 18:24 02:17 02:19 Activated Partial 264.9 SEC 31.4 SEC 81.9 SEC Thromboplast Time White Blood Count 6.8 TH/MM3 Red Blood Count 3.04 MIL/MM3 Hemoglobin 9.7 GM/DL Hematocrit 28.6 % Mean Corpuscular Volume 94.1 FL Mean Corpuscular Hemoglobin 31.8 PG Mean Corpuscular Hemoglobin 33.8 % Concent Red Cell Distribution Width 14.2 % Platelet Count 167 TH/MM3 Mean Platelet Volume 8.0 FL Neutrophils (%) (Auto) 64.9 % Lymphocytes (%) (Auto) 26.3 % Monocytes (%) (Auto) 6.3 % Eosinophils (%) (Auto) 2.1 % Basophils (%) (Auto) 0.4 % Neutrophils # (Auto) 4.4 TH/MM3 Lymphocytes # (Auto) 1.8 TH/MM3 Monocytes # (Auto) 0.4 TH/MM3 Eosinophils # (Auto) 0.1 TH/MM3 Basophils # (Auto) 0.0 TH/MM3 CBC Comment DIFF FINAL Differential Comment Sodium Level 134 MEQ/L Potassium Level 4.4 MEQ/L Chloride Level 98 MEQ/L Carbon Dioxide Level 28.8 MEQ/L Anion Gap 7 MEQ/L Blood Urea Nitrogen 13 MG/DL Creatinine 0.75 MG/DL Estimat Glomerular Filtration 74 ML/MIN Rate Random Glucose 111 MG/DL Calcium Level 8.5 MG/DL Assessment and Plan Problem List: (1) Brachial artery thrombosis Assessment and Plan: Doing well s/p left brachial artery embolectomy. Suspect event was due to cardioembolic phenomena. In light of her embolic event, history of paroxysmal atrial fib/flutter, rec treatment with Xarelto. Will f/u as needed rest of her hospital stay; she can f/u with Dr. Sami Jordan after discharge. (2) Paroxysmal atrial fibrillation Assessment and Plan: Remains in NSR. Review of old records, EKG's, monitoring suggests she's had paroxysmal atrial fib/flutter since at least 2007. Rec Xarelto. Plavix can be stopped when Xarelto begun. (3) CAD (coronary artery disease) Assessment and Plan: Stable s/p PTCA's of mid and distal LAD 02/2016. Continue daily aspirin. Plavix can be stopped when Xarelto begun. (4) Hypertension Assessment and Plan: Stable. Normotensive. Code Status full code Discussed Condition With patient Problem Qualifiers (1) CAD (coronary artery disease): Qualified Code: I25.10 - Coronary artery disease involving nondalton coronary artery of nondalton heart without angina pectoris (2) Hypertension: Qualified Code: I10 - Essential hypertension Francis Carpio MD Jun 13, 2016 09:29
[2016-06-13] MEDS: BUMETANIDE 1 MG TAB PO SCH ×2 (09:54→21:09)
[2016-06-13] MEDS: ASPIRIN EC 81 MG TABEC PO SCH (09:54)
[2016-06-13] MEDS: PANTOPRAZOLE SOD 40 MG DELAYED RELEASE TAB PO SCH (09:54)
[2016-06-13] MEDS: SODIUM CHLORIDE 0.9% FLUSH 10 ML FLUSH IV FLUSH SCH ×2 (09:54→21:00)
[2016-06-13] MEDS: GABAPENTIN 400 MG CAP PO SCH ×3 (09:54→17:20)
[2016-06-13] MEDS: CLOPIDOGREL 75 MG TAB PO SCH (09:54)
[2016-06-13] MEDS: OXYBUTYNIN CHLORIDE 5 MG TAB PO SCH (09:54)
[2016-06-13] MEDS: METOPROLOL TARTRATE 25 MG TAB PO SCH (09:54)
[2016-06-13] MEDS: LACTOBACILLUS ACIDOPHILUS TAB PO SCH ×2 (09:54→21:09)
[2016-06-13] MEDS: ESCITALOPRAM OXALATE 10 MG TAB PO SCH (09:54)
[2016-06-13] MEDS: POTASSIUM CHLORIDE 10 MEQ CONTROLLED RELEASE TAB PO SCH (09:54)
[2016-06-13] MEDS: LISINOPRIL 10 MG TAB PO SCH (09:54)
[2016-06-13 10:34] LABS: APTT (PATIENT) 71.4 SEC (24.3-30.1)
--- NOTE | 2016-06-13 11:03 | PD.VS.PN ---
Subjective POD #: 1 Procedure(s): L brachial artery embolectomy Subjective/Hospital Course Pt awake and alert this am No complaints this am Pt reported last night her Left arm "felt numb" No numbness reported this am (Elvira Porras) Objective Vitals/I&O Date Time Temp Pulse Resp B/P Pulse Ox O2 Delivery O2 Flow Rate FiO2 06/13/16 08:00 97.7 81 18 125/58 95 06/13/16 04:00 98.1 72 20 107/55 98 06/13/16 04:00 Room Air 06/13/16 00:01 Room Air 06/13/16 00:01 97.9 70 16 105/53 94 06/12/16 20:34 72 06/12/16 20:00 Room Air 06/12/16 20:00 98.0 67 16 114/56 100 06/12/16 16:00 97.6 76 16 155/67 99 06/12/16 14:50 97.7 71 18 118/59 96 Room Air 06/12/16 14:00 73 20 142/63 97 Room Air 06/12/16 13:00 72 15 145/60 97 Room Air 06/12/16 12:30 75 20 148/67 99 Room Air 06/12/16 12:15 93 19 108/52 95 Room Air 06/12/16 12:00 83 17 143/67 96 Room Air 06/12/16 11:48 98.4 84 16 147/70 100 Nasal Cannula 2 06/13/16 06/13/16 06/13/16 07:00 15:00 23:00 Intake Total 180 ml Balance 180 ml Exam: Ecchymosis noted to L Upper Arm, NO pain, numbness or tingling Full Motor sensory intact BUE + palpable Radial pulse noted L/R Pulses: R/L + palpable radial pulses Incisions: Intact with surgical glue No drainage Minimal swelling noted Ecchymosis noted to LUE Laboratory Laboratory Tests Test 06/12/16 06/12/16 06/13/16 06/13/16 13:05 18:24 02:17 02:19 Activated Partial 264.9 31.4 81.9 Thromboplast Time White Blood Count 6.8 Red Blood Count 3.04 Hemoglobin 9.7 Hematocrit 28.6 Mean Corpuscular Volume 94.1 Mean Corpuscular Hemoglobin 31.8 Mean Corpuscular Hemoglobin 33.8 Concent Red Cell Distribution Width 14.2 Platelet Count 167 Mean Platelet Volume 8.0 Neutrophils (%) (Auto) 64.9 Lymphocytes (%) (Auto) 26.3 Monocytes (%) (Auto) 6.3 Eosinophils (%) (Auto) 2.1 Basophils (%) (Auto) 0.4 Neutrophils # (Auto) 4.4 Lymphocytes # (Auto) 1.8 Monocytes # (Auto) 0.4 Eosinophils # (Auto) 0.1 Basophils # (Auto) 0.0 CBC Comment DIFF FINAL Differential Comment Sodium Level 134 Potassium Level 4.4 Chloride Level 98 Carbon Dioxide Level 28.8 Anion Gap 7 Blood Urea Nitrogen 13 Creatinine 0.75 Estimat Glomerular Filtration 74 Rate Random Glucose 111 Calcium Level 8.5 (Elvira Porras) Assessment and Plan Plan Plan Gabriel wrap Left UE while swelling present Pt will Need a TTE sometime this admission Elvira LEW [facility] [phone] (Elvira Porras) Plan I agree with above assessment and plan. Some ecchymosis at surgical site otherwise palpable distal radial pulse and excellent motor function. TTE for possible etiology Otherwise continue anticoagulation. David Veloz DO, FACS Assist Professor of Vascular Surgery /[place] (David Veloz DO) Elvira Porras Jun 13, 2016 11:03 David Veloz DO Jun 13, 2016 17:10
[2016-06-13] MEDS: ZAFIRLUKAST 20 MG TAB PO SCH (12:20)
[2016-06-13] MEDS: LEVODOPA/CARBIDOPA 1 TAB TABCR PO SCH (12:23)
[2016-06-13] MEDS ORDERED: SODIUM CHLORID 0.9% 500 ML INJ 500 ML IV ONE (14:00)
[2016-06-13 17:59] LABS: APTT (PATIENT) 62.5 SEC (24.3-30.1)
--- NOTE | 2016-06-13 18:39 | HHI.PR ---
Subjective Remarks called by RN patient hypotensive earlier this am Patient states the numbness on her arm has subsided, thinks RUFINO draop was placed toot tight and loosening it made the numbness go away. Denies any bleeding. Denies chest pain or shortness of breath. Denies abdominal pain Objective Vitals Vital Signs Date Time Temp Pulse Resp B/P Pulse Ox O2 Delivery O2 Flow Rate FiO2 06/13/16 16:00 97.8 68 18 112/58 99 06/13/16 12:00 98.4 68 18 74/40 93 06/13/16 10:00 Room Air 06/13/16 10:00 94 06/13/16 08:00 97.7 81 18 125/58 95 06/13/16 04:00 98.1 72 20 107/55 98 06/13/16 04:00 Room Air 06/13/16 00:01 Room Air 06/13/16 00:01 97.9 70 16 105/53 94 06/12/16 20:34 72 06/12/16 20:00 Room Air 06/12/16 20:00 98.0 67 16 114/56 100 I/O 06/12/16 06/12/16 06/12/16 06/13/16 06/13/16 06/13/16 07:00 15:00 23:00 07:00 15:00 23:00 Intake Total 700 ml 752 ml 180 ml 480 ml 559 ml Output Total 1500 ml 400 ml Balance -1500 ml 300 ml 752 ml 180 ml 480 ml 559 ml Intake Oral 720 ml 180 ml 480 ml IV Total 32 ml 559 ml Other 700 ml Output Urine Total 1500 ml 350 ml Estimated Blood Loss 50 ml # Voids 8 1 4 2 3 # Bowel Movements 0 Result Diagram: 06/13/16 0219 06/13/16 0219 Imaging Last Impressions Chest X-Ray 06/12/16 0054 Signed Impressions: Service Date/Time: May 01:14 - CONCLUSION: 1. Mild infiltrate in the left lung base. 2. Pulmonary venous congestion. Royal Anderson MD Upper Extremity CTA 06/12/16 0000 Signed Impressions: Service Date/Time: May 03:01 - CONCLUSION: 1. Focal segmental occlusion of the left brachial artery for about 5 cm in the upper left arm. 2. 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 3. There is flow in the radial artery down to the level of the wrist. Royal Anderson MD Objective Remarks GENERAL: This is a well-nourished, well-developed patient, in no apparent distress. SKIN: No rashes, ecchymoses or lesions. Cool and dry. HEAD: Atraumatic. Normocephalic. No temporal or scalp tenderness. EYES: No scleral icterus. No injection or drainage. ENT: Nose without bleeding, purulent drainage or septal hematoma. Airway patent. NECK: Trachea midline. No JVD CARDIOVASCULAR: Regular rate and rhythm without murmurs, gallops, or rubs. RESPIRATORY: Clear to auscultation. Breath sounds equal bilaterally. No wheezes , rales, or rhonchi. GASTROINTESTINAL: Abdomen soft, non-tender, nondistended. No guarding. MUSCULOSKELETAL: Extremities without clubbing, cyanosis, or edema. Left upper extremity is draped on a strap. There is some dried blood and ecchymotic area on the inner side of the arm, however there is no active bleeding. The left upper extremity has good capillary refill and sensation is intact. NEUROLOGICAL: Awake and alert. Motor and sensory grossly within normal limits. Normal speech. Procedures Status post left upper embolectomy Medications and IVs Current Medications Medications (Trade) Dose Ordered Sig/Alex Route Start Time Stop Time Status Last Admin (NS Flush) 2 ml UNSCH PRN IVF 06/12/16 01:00 (Heparin Inj) 5,000 units UNSCH PRN IV 06/12/16 10:00 Heparin Sodium (Porcine) 2500 units 2,500 units UNSCH PRN IV 06/12/16 10:00 (Heparin-D5W Inj) 250 ml @ 0 mls/hr TITRATE IV 06/12/16 04:00 06/12/16 04:38 (NS Flush) 2 ml UNSCH PRN IV FLUSH 06/12/16 05:00 (NS Flush) 2 ml BID IV FLUSH 06/12/16 09:00 06/12/16 21:00 (Zofran Inj) 4 mg Q6H PRN IVP 06/12/16 05:00 (Narcan Inj) 0.4 mg UNSCH PRN IV 06/12/16 05:00 (Ecotrin Ec) 81 mg DAILY PO 06/12/16 09:00 06/13/16 09:54 (Bumetanide) 2 mg BID PO 06/12/16 09:00 06/13/16 09:54 (Sinemet Cr 50-200 Mg) 1 tab DAILY PO 06/12/16 09:00 (Plavix) 75 mg DAILY PO 06/12/16 09:00 06/13/16 09:54 (Flexeril) 10 mg HS PO 06/12/16 21:00 06/12/16 21:41 (Lexapro) 10 mg DAILY PO 06/12/16 09:00 06/13/16 09:54 (Neurontin) 400 mg TID PO 06/12/16 09:00 06/13/16 17:20 ([place] 5-325 Mg) 1 tab Q4H PRN PO 06/12/16 05:30 06/12/16 21:49 (Lactinex) 1 tab BID PO 06/12/16 09:00 06/13/16 09:54 (Prinivil) 10 mg DAILY PO 06/12/16 09:00 06/13/16 09:54 (Pravachol) 20 mg HS PO 06/12/16 21:00 06/12/16 21:41 (Lopressor) 25 mg DAILY PO 06/12/16 09:00 06/13/16 09:54 (Ditropan) 5 mg DAILY PO 06/12/16 09:00 06/13/16 09:54 (KCl) 10 meq DAILY PO 06/12/16 09:00 06/13/16 09:54 (Desyrel) 50 mg HS PO 06/12/16 21:00 06/12/16 21:41 (Accolate) 20 mg DAILY PO 06/12/16 09:00 06/13/16 12:20 (Protonix) 40 mg DAILY PO 06/12/16 09:00 06/13/16 09:54 (Requip) 4 mg TID PO 06/12/16 09:00 06/13/16 17:20 (Apresoline Inj) 10 mg Q30M PRN IV PUSH 06/12/16 05:30 06/12/16 05:42 (D50w (Vial) Inj) 25 ml UNSCH PRN IV PUSH 06/12/16 07:30 (Glucagon Inj) 1 mg UNSCH PRN OTHER 06/12/16 07:30 (Vasotec Inj) 1.25 mg Q6H PRN IV PUSH 06/12/16 09:45 Urinary Catheter: No Vascular Central Line Catheter: No A/P Problem List: (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 Vascular surgery consulted. The patient status post left brachial artery embolectomy with good results. Follow-up after surgery recommendations. (2) Paroxysmal atrial fibrillation ICD Code: I48.0 Status: Acute Plan: Patient has history of paroxysmal atrial fibrillation. Cardiology has been consulted. Remains in normal sinus rhythm. As per cardiology documentation the patient has had paroxysmal atrial fibrillation/flutter since 2007. Audiology recommends starting Xarelto. Plavix could be discontinued once Xarelto started. (3) Hypertension ICD Code: I10 Status: Acute Plan: Hold antihypertensive medications. The patient hypotensive earlier today. 500 mL's of normal saline IV bolus were administered with response of blood pressure. (4) CAD (coronary artery disease) ICD Code: I25.10 Status: Acute Plan: cardiology consulted. Stable s/p PTCA's of mid and distal LAD 02/2016. Continue daily aspirin. Plavix can be stopped when Xarelto begun. (5) Hypotension ICD Code: I95.9 Status: Resolved Plan: Patient with hypotension of 74/40, 500 mL of normal saline bolused with good BP response. Continue to monitor vital signs. Hold antihypertensive medications. Continue aspirin, Plavix and IV heparin Problem Qualifiers (1) Hypertension: Qualified Code: I10 - Essential hypertension (2) CAD (coronary artery disease): Qualified Code: I25.10 - Coronary artery disease involving [place] coronary artery of ruby heart without angina pectoris (3) Hypotension: Qualified Code: I95.9 - Hypotension, unspecified hypotension type Jacobo Felipe MD Jun 13, 2016 18:39
--- NOTE | 2016-06-13 19:01 | EC ---
Study Study Date:06/13/2016 STUDY CONCLUSIONS SUMMARY - Left ventricle: The cavity size was normal. Wall thickness was normal. Systolic function was normal. The estimated ejection fraction was 55%. Wall motion was normal; there were no regional wall motion abnormalities. - Mitral valve: Mild regurgitation. - Tricuspid valve: Moderate regurgitation. - Pulmonary arteries: Systolic pressure was severely increased, estimated to be 83mm Hg. If LV function is below 40, please consider prescribing an ACEI or ARB or document rationale for non-use. PROCEDURE DATA STUDY STATUS: Elective. Procedure: Transthoracic echocardiography. Image quality was good. Scanning was performed from the parasternal, apical, and subcostal acoustic windows. Study completion: The patient tolerated the procedure well. Transthoracic echocardiography. M-mode, complete 2D, complete spectral Doppler, and color Doppler. Patient status: Inpatient. CARDIAC ANATOMY LEFT VENTRICLE: The cavity size was normal. Wall thickness was normal. Systolic function was normal. The estimated ejection fraction was 55%. Wall motion was normal; there were no regional wall motion abnormalities. AORTIC VALVE: Trileaflet; normal thickness leaflets. Doppler: Transvalvular velocity was within the normal range. There was no stenosis. No regurgitation. AORTA: Aortic root: The aortic root was normal in size. MITRAL VALVE: Structurally normal valve. Doppler: Transvalvular velocity was within the normal range. There was no evidence for stenosis. Mild regurgitation. Peak gradient: 3mm Hg (D). LEFT ATRIUM: The atrium was normal in size. RIGHT VENTRICLE: The cavity size was normal. Wall thickness was normal. PULMONIC VALVE: Doppler: Transvalvular velocity was within the normal range. There was no evidence for stenosis. No regurgitation. TRICUSPID VALVE: Structurally normal valve. Doppler: Transvalvular velocity was within the normal range. Moderate regurgitation. PULMONARY ARTERY: The main pulmonary artery was normal-sized. Systolic pressure was severely increased, estimated to be 83mm Hg. RIGHT ATRIUM: The atrium was normal in size. PERICARDIUM: There was no pericardial effusion. SYSTEMIC VEINS: Inferior vena cava: The vessel was normal in size. BASIC MEASUREMENTS ADULT Normal Left ventricle LV internal dimension, ED, chordal level, 45.4 mm 43-52 PLAX LV internal dimension, ES, chordal level, 37 mm 23-38 PLAX Fractional shortening, chordal level, PLAX *19 % >29 LV posterior wall thickness, ED 6.07 mm IVS/LVPW ratio, ED *1.66 <1.3 Ventricular septum Septal thickness, ED 10.1 mm Aortic valve Leaflet separation 18 mm 15-26 Left atrium Anterior-posterior dimension 38 mm Right ventricle RV internal dimension, ED, PLAX 21 mm 19-38 BASIC MEASUREMENTS ADULT Normal Aortic valve Leaflet separation 18 mm 15-26 Aorta Root diameter, ED 30 mm 20-37 DOPPLER MEASUREMENTS ADULT Normal Mitral valve Peak E-wave velocity 82.4 cm/s Peak A-wave velocity 49.4 cm/s Peak gradient, D 3 mm Hg Peak E/A ratio 1.7 Maximal regurgitant velocity 381 cm/s Tricuspid valve Regurgitant peak velocity 455 cm/s Peak RV-RA gradient, S 83 mm Hg Maximal regurgitant velocity 455 cm/s LEGEND: Mean values are shown as u=mean value. Asterisk (*) orozco values outside specified normal range. Prepared and signed by Caterina De Leon [id number]
[2016-06-13] MEDS: traZODone HCL 50 MG TAB PO SCH (21:00)
[2016-06-13] MEDS: PRAVASTATIN SOD 20 MG TAB PO SCH (21:09)
[2016-06-13] MEDS: CYCLOBENZAPRINE HCL 10 MG TAB PO SCH (21:09)
[2016-06-13] MEDS: ACETAMINOPHEN/HYDROcodone 325 MG/5 MG TAB PO PRN (21:10)
[2016-06-13] MEDS: HEPARIN-D5W INJ 250 ML IV SCH (23:34)
[2016-06-14] VITALS (9 sets, daily range): BP systolic 88–117; BP diastolic 48–70; PULSE 63–79; RESP 18; TEMP 97.1–98.1; O2SAT 93–97
[2016-06-14] MEDS: METOPROLOL TARTRATE 25 MG TAB PO SCH (09:14)
[2016-06-14] MEDS: ZAFIRLUKAST 20 MG TAB PO SCH (09:14)
[2016-06-14] MEDS: OXYBUTYNIN CHLORIDE 5 MG TAB PO SCH (09:14)
[2016-06-14] MEDS: LISINOPRIL 10 MG TAB PO SCH (09:14)
[2016-06-14] MEDS: LACTOBACILLUS ACIDOPHILUS TAB PO SCH ×2 (09:14→20:40)
[2016-06-14] MEDS: BUMETANIDE 1 MG TAB PO SCH (09:14)
[2016-06-14] MEDS: POTASSIUM CHLORIDE 10 MEQ CONTROLLED RELEASE TAB PO SCH (09:15)
[2016-06-14] MEDS: ESCITALOPRAM OXALATE 10 MG TAB PO SCH (09:15)
[2016-06-14] MEDS: PANTOPRAZOLE SOD 40 MG DELAYED RELEASE TAB PO SCH (09:15)
[2016-06-14] MEDS: CLOPIDOGREL 75 MG TAB PO SCH (09:15)
[2016-06-14] MEDS: ASPIRIN EC 81 MG TABEC PO SCH (09:15)
[2016-06-14] MEDS: LEVODOPA/CARBIDOPA 1 TAB TABCR PO SCH (09:15)
[2016-06-14] MEDS: GABAPENTIN 400 MG CAP PO SCH ×3 (09:15→18:25)
[2016-06-14] MEDS: SODIUM CHLORIDE 0.9% FLUSH 10 ML FLUSH IV FLUSH SCH ×2 (09:20→20:40)
[2016-06-14 10:19] LABS: APTT (PATIENT) 67.1 SEC (24.3-30.1)
--- NOTE | 2016-06-14 12:07 | PD.VS.PN ---
Subjective Subjective/Hospital Course Pt awake and alert this am No complaints this am Objective Vitals/I&O Date Time Temp Pulse Resp B/P Pulse Ox O2 Delivery O2 Flow Rate FiO2 06/14/16 08:39 97.9 63 18 117/70 96 06/14/16 06:15 96/50 06/14/16 05:23 94/48 06/14/16 05:22 97.8 73 18 88/48 97 06/14/16 05:22 Room Air 06/14/16 00:35 97.1 66 18 112/61 93 06/14/16 00:35 Room Air 06/13/16 20:00 Room Air 06/13/16 20:00 98.1 74 20 95/54 95 06/13/16 20:00 71 06/13/16 16:00 97.8 68 18 112/58 99 Physical Exam left arm/hand warm with ecchymosis over medial aspect of incision. Laboratory Laboratory Tests Test 06/13/16 06/14/16 16:42 08:46 Activated Partial 62.5 67.1 Thromboplast Time Assessment and Plan Plan Continue anticoagulation. Otherwise no complaints. David Veloz DO, David Castellanos DO Jun 14, 2016 12:07
[2016-06-14 13:47] LABS: HEMATOCRIT 29.3 % (35.0-46.0); MEAN CELL VOLUME 94.1 FL (80.0-100.0); PLATELET COUNT 177 TH/MM3 (150-450); RED BLOOD COUNT 3.12 MIL/MM3 (4.00-5.30); RED CELL DISTRIBUTION WIDTH 13.9 % (11.6-17.2); REVIEW FLAG FINAL
[2016-06-14 14:08] LABS: BICARBONATE 32.2 MEQ/L (21.0-32.0); POTASSIUM 3.6 MEQ/L (3.5-5.1)
--- NOTE | 2016-06-14 17:12 | HHI.PR ---
Subjective Remarks Patient seen earlier at 10:30 AM. Patient denies chest pain or short of breath. Denies dizziness. States that he coughed up some blood but this has subsided. Blood pressure stable. Objective Vitals Vital Signs Date Time Temp Pulse Resp B/P Pulse Ox O2 Delivery O2 Flow Rate FiO2 06/14/16 12:29 97.9 66 18 104/56 97 06/14/16 08:39 97.9 63 18 117/70 96 06/14/16 08:00 79 06/14/16 08:00 96 Room Air 06/14/16 06:15 96/50 06/14/16 05:23 94/48 06/14/16 05:22 97.8 73 18 88/48 97 06/14/16 05:22 Room Air 06/14/16 00:35 97.1 66 18 112/61 93 06/14/16 00:35 Room Air 06/13/16 20:00 Room Air 06/13/16 20:00 98.1 74 20 95/54 95 06/13/16 20:00 71 I/O 06/13/16 06/13/16 06/13/16 06/14/16 06/14/16 06/14/16 07:00 15:00 23:00 07:00 15:00 23:00 Intake Total 180 ml 480 ml 615 ml Balance 180 ml 480 ml 615 ml Intake Oral 180 ml 480 ml IV Total 615 ml # Voids 2 3 2 Result Diagram: 06/14/16 1320 06/14/16 1320 Imaging Last Impressions Chest X-Ray 06/12/16 0054 Signed Impressions: Service Date/Time: May 01:14 - CONCLUSION: 1. Mild infiltrate in the left lung base. 2. Pulmonary venous congestion. Royal Anderson MD Upper Extremity CTA 06/12/16 0000 Signed Impressions: Service Date/Time: May 03:01 - CONCLUSION: 1. Focal segmental occlusion of the left brachial artery for about 5 cm in the upper left arm. 2. 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 3. There is flow in the radial artery down to the level of the wrist. Royal Anderson MD Objective Remarks GENERAL: This is a well-nourished, well-developed patient, in no apparent distress. SKIN: No rashes, ecchymoses or lesions. Cool and dry. HEAD: Atraumatic. Normocephalic. No temporal or scalp tenderness. EYES: No scleral icterus. No injection or drainage. ENT: Nose without bleeding, purulent drainage or septal hematoma. Airway patent. NECK: Trachea midline. No JVD CARDIOVASCULAR: Regular rate and rhythm without murmurs, gallops, or rubs. RESPIRATORY: Clear to auscultation. Breath sounds equal bilaterally. No wheezes , rales, or rhonchi. GASTROINTESTINAL: Abdomen soft, non-tender, nondistended. No guarding. MUSCULOSKELETAL: Extremities without clubbing, cyanosis, or edema. Left upper extremity is draped on a strap. There is some dried blood and ecchymotic area on the inner side of the arm, however there is no active bleeding. The left upper extremity has good capillary refill and sensation is intact. NEUROLOGICAL: Awake and alert. Motor and sensory grossly within normal limits. Normal speech. Procedures Status post left upper embolectomy Medications and IVs Current Medications Medications (Trade) Dose Ordered Sig/Alex Route Start Time Stop Time Status Last Admin (NS Flush) 2 ml UNSCH PRN IVF 06/12/16 01:00 (Heparin Inj) 5,000 units UNSCH PRN IV 06/12/16 10:00 Heparin Sodium (Porcine) 2500 units 2,500 units UNSCH PRN IV 06/12/16 10:00 (Heparin-D5W Inj) 250 ml @ 0 mls/hr TITRATE IV 06/12/16 04:00 06/13/16 23:34 (NS Flush) 2 ml UNSCH PRN IV FLUSH 06/12/16 05:00 (NS Flush) 2 ml BID IV FLUSH 06/12/16 09:00 06/14/16 09:20 (Zofran Inj) 4 mg Q6H PRN IVP 06/12/16 05:00 (Narcan Inj) 0.4 mg UNSCH PRN IV 06/12/16 05:00 (Ecotrin Ec) 81 mg DAILY PO 06/12/16 09:00 06/14/16 09:15 (Bumetanide) 2 mg BID PO 06/12/16 09:00 Hold 06/14/16 09:14 (Sinemet Cr 50-200 Mg) 1 tab DAILY PO 06/12/16 09:00 06/14/16 09:15 (Plavix) 75 mg DAILY PO 06/12/16 09:00 06/14/16 09:15 (Flexeril) 10 mg HS PO 06/12/16 21:00 06/13/16 21:09 (Lexapro) 10 mg DAILY PO 06/12/16 09:00 06/14/16 09:15 (Neurontin) 400 mg TID PO 06/12/16 09:00 06/14/16 14:24 ([place] 5-325 Mg) 1 tab Q4H PRN PO 06/12/16 05:30 06/13/16 21:10 (Lactinex) 1 tab BID PO 06/12/16 09:00 06/14/16 09:14 (Prinivil) 10 mg DAILY PO 06/12/16 09:00 Hold 06/14/16 09:14 (Pravachol) 20 mg HS PO 06/12/16 21:00 06/13/16 21:09 (Lopressor) 25 mg DAILY PO 06/12/16 09:00 Hold 06/13/16 09:54 (Ditropan) 5 mg DAILY PO 06/12/16 09:00 06/14/16 09:14 (KCl) 10 meq DAILY PO 06/12/16 09:00 06/14/16 09:15 (Desyrel) 50 mg HS PO 06/12/16 21:00 06/13/16 21:00 (Accolate) 20 mg DAILY PO 06/12/16 09:00 06/14/16 09:14 (Protonix) 40 mg DAILY PO 06/12/16 09:00 06/14/16 09:15 (Requip) 4 mg TID PO 06/12/16 09:00 06/14/16 14:24 (Apresoline Inj) 10 mg Q30M PRN IV PUSH 06/12/16 05:30 06/12/16 05:42 (D50w (Vial) Inj) 25 ml UNSCH PRN IV PUSH 06/12/16 07:30 (Glucagon Inj) 1 mg UNSCH PRN OTHER 06/12/16 07:30 (Vasotec Inj) 1.25 mg Q6H PRN IV PUSH 06/12/16 09:45 Urinary Catheter: No Vascular Central Line Catheter: No A/P Problem List: (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 Hemoglobin has remained stable. Continue to monitor CBC. There are no signs of active bleeding, however there is a peak ecchymotic area on the inner side of the left upper extremity. Assessment and Plan (1) Brachial artery thrombosis The patient was admitted to the medical floor. Vascular surgery consulted. The patient status post left brachial artery embolectomy with good results. Continue to follow-up muscle surgery recommendations. As per vascular surgery continue anticoagulation. (2) Paroxysmal atrial fibrillation Patient has history of paroxysmal atrial fibrillation. Cardiology has been consulted. Remains in normal sinus rhythm. As per cardiology documentation the patient has had paroxysmal atrial fibrillation/flutter since 2007. Audiology recommends starting Xarelto. Plavix could be discontinued once Xarelto started. (3) Hypertension Plan: Antihypertensive medications were held on 06/13/16 due to patient being hypotensive. Blood pressure improved after the patient was given 500 mL of normal saline IV bolus. Today on 06/14/16 the patient blood pressure is more stable. Continue to hold antihypertensive medications. (4) CAD (coronary artery disease) Plan: cardiology consulted. Stable s/p PTCA's of mid and distal LAD 02/2016. Continue daily aspirin. Plavix can be stopped when Xarelto begun. I will hold Plavix since patient is currently on a heparin drip. (5) Hypotension Plan: Patient with hypotension of 74/40 on 06/13, 500 mL of normal saline bolused with good BP response. Hold antihypertensive medications. BP today more stable. Continue to monitor vital signs and continue to hold antihypertensive medications. Problem Qualifiers (1) Hypertension: Qualified Code: I10 - Essential hypertension (2) CAD (coronary artery disease): Qualified Code: I25.10 - Coronary artery disease involving [place] coronary artery of [place] heart without angina pectoris (3) Hypotension: Qualified Code: I95.9 - Hypotension, unspecified hypotension type Jacobo Felipe MD Jun 14, 2016 17:12
[2016-06-14] MEDS: PRAVASTATIN SOD 20 MG TAB PO SCH (20:40)
[2016-06-14] MEDS: traZODone HCL 50 MG TAB PO SCH (20:40)
[2016-06-14] MEDS: CYCLOBENZAPRINE HCL 10 MG TAB PO SCH (20:40)
--- NOTE | 2016-06-14 21:51 | MP ---
cc: ROXI POOLE MD DATE OF SURGERY 06/14/16 PREOPERATIVE DIAGNOSIS Left upper extremity arterial occlusion POSTOPERATIVE DIAGNOSIS Left upper extremity arterial occlusion PROCEDURE Left brachial artery embolectomy ATTENDING SURGEON Suzanne Poole MD [employer] [place] ANESTHESIA General INDICATIONS Mrs. Dumont is an 85 year old lady who presented to the emergency department last night with acute pain in her left upper extremity. She was placed on a heparin drip and by the time I saw her, she had no pain and no motor dysfunction. However, CT scan suggested she had an acute likely embolism of the brachial artery and she was taken to the operating room for urgent embolectomy. PROCEDURE IN DETAIL Informed consent was obtained from patient and she was taken to the operating room and placed supine on the operating table. An appropriate time out was taken to ensure the patient's identity, operative site and planned procedure. The administration of a gram of Ancef was initiated prior to the skin incision and will be discontinued after a single preoperative dose. Everyone in the room agreed to the timeout and we proceeded. Her left arm was prepped and draped. An incision was made along the antecubitum in a longitudinal fashion, carried down to the subcutaneous tissue with electrocautery. The brachial artery was identified and dissected free for several centimeters. It was encircled with a vessel loop. The patient was systemically heparinized with 5000 units of IV heparin proximally and distally and the brachial artery was occluded with profunda clamps and a transverse arteriotomy was made with an 11 blade and the Stephen embolectomy catheter was used to embolectomize the artery proximally and distally. Fresh thrombus was encountered. There was a nice pulse in the inflow artery and the arteriotomy was closed with a 6-0 Prolene suture. The wound was made hemostatic with Surgicel and electrocautery. The wound was closed with 2-0 Polysorb and 3-0 Polysorb and 4-0 Monocryl. Sponge and needle counts were correct at the end of the case. There were palpable pulses at the end of the case. Prior to leaving the room, there were no complications and I was present and scrubbed for the entire procedure. MD DIMAS Hernandez/ /11:32 AM /9:35 PM MTDLauri
[2016-06-15] VITALS: BP 109/54; PULSE 71; RESP 18; TEMP 98; O2SAT 97
[2016-06-15 04:00] VITALS: BP_SYST 133; BP_SYST 90; BP_DIAS 55; BP_DIAS 69; PULSE 78; PULSE 79; RESP 20; TEMP 97.6; TEMP 98.1; O2SAT 95; O2SAT 96
[2016-06-15 08:00] VITALS: BP 143/67; PULSE 75; PULSE 83; RESP 20; TEMP 98.7; O2SAT 93
--- NOTE | 2016-06-15 09:01 | PD.VS.PN ---
Subjective Subjective/Hospital Course Pt awake and alert this am No complaints this am Objective Vitals/I&O Date Time Temp Pulse Resp B/P Pulse Ox O2 Delivery O2 Flow Rate FiO2 06/15/16 04:00 97.6 78 20 90/55 96 06/15/16 00:00 98.0 71 18 109/54 97 06/14/16 20:00 68 06/14/16 20:00 98.1 64 18 103/53 96 06/14/16 20:00 96 Room Air 06/14/16 16:27 97.8 76 18 103/55 96 06/14/16 12:29 97.9 66 18 104/56 97 06/15/16 06/15/16 06/15/16 07:00 15:00 23:00 Intake Total 320 ml Balance 320 ml Physical Exam left arm with ecchymosis around incision site with intact incision. left radial pulse palpable. Laboratory Laboratory Tests Test 06/14/16 13:20 White Blood Count 7.0 Red Blood Count 3.12 Hemoglobin 9.7 Hematocrit 29.3 Mean Corpuscular Volume 94.1 Mean Corpuscular Hemoglobin 31.0 Mean Corpuscular Hemoglobin 33.0 Concent Red Cell Distribution Width 13.9 Platelet Count 177 Mean Platelet Volume 7.8 Sodium Level 136 Potassium Level 3.6 Chloride Level 96 Carbon Dioxide Level 32.2 Anion Gap 8 Blood Urea Nitrogen 22 Creatinine 1.10 Estimat Glomerular Filtration 47 Rate Random Glucose 125 Calcium Level 8.6 Assessment and Plan Plan Status post brachial artery embolectomy left upper extremity. Patient doing great. Swelling improved. Continue anticoagulation. David Veloz DO, David Castellanos DO Jun 15, 2016 09:01
[2016-06-15] MEDS: GABAPENTIN 400 MG CAP PO SCH ×3 (09:46→18:00)
[2016-06-15] MEDS: ZAFIRLUKAST 20 MG TAB PO SCH (09:46)
[2016-06-15] MEDS: PANTOPRAZOLE SOD 40 MG DELAYED RELEASE TAB PO SCH (09:46)
[2016-06-15] MEDS: ASPIRIN EC 81 MG TABEC PO SCH (09:46)
[2016-06-15] MEDS: LACTOBACILLUS ACIDOPHILUS TAB PO SCH ×2 (09:46→22:20)
[2016-06-15] MEDS: ESCITALOPRAM OXALATE 10 MG TAB PO SCH (09:46)
[2016-06-15] MEDS: POTASSIUM CHLORIDE 10 MEQ CONTROLLED RELEASE TAB PO SCH (09:47)
[2016-06-15] MEDS: LEVODOPA/CARBIDOPA 1 TAB TABCR PO SCH (09:47)
[2016-06-15] MEDS: OXYBUTYNIN CHLORIDE 5 MG TAB PO SCH (09:47)
[2016-06-15] MEDS: SODIUM CHLORIDE 0.9% FLUSH 10 ML FLUSH IV FLUSH SCH ×2 (09:52→22:21)
[2016-06-15 10:42] LABS: MEAN CELL VOLUME 93.7 FL (80.0-100.0); MEAN CORPUSCULAR HGB CONC 34.1 % (32.0-36.0); PLATELET COUNT 192 TH/MM3 (150-450); RED CELL DISTRIBUTION WIDTH 13.9 % (11.6-17.2); REVIEW FLAG FINAL; WHITE BLOOD COUNT 6.5 TH/MM3 (4.0-11.0)
[2016-06-15 10:45] LABS: APTT (PATIENT) 62.6 SEC (24.3-30.1)
[2016-06-15 11:04] LABS: BICARBONATE 30.3 MEQ/L (21.0-32.0); POTASSIUM 3.6 MEQ/L (3.5-5.1)
[2016-06-15 12:00] VITALS: BP 111/53; PULSE 72; RESP 20; TEMP 98.1; O2SAT 95
--- NOTE | 2016-06-15 13:39 | HHI.PR ---
Subjective Remarks c/o tingling on fingers of left hand denies cp/sob Objective Vitals Vital Signs Date Time Temp Pulse Resp B/P Pulse Ox O2 Delivery O2 Flow Rate FiO2 06/15/16 12:00 98.1 72 20 111/53 95 06/15/16 08:00 98.7 83 20 143/67 93 06/15/16 04:00 97.6 78 20 90/55 96 06/15/16 00:00 98.0 71 18 109/54 97 06/14/16 20:00 68 06/14/16 20:00 98.1 64 18 103/53 96 06/14/16 20:00 96 Room Air 06/14/16 16:27 97.8 76 18 103/55 96 I/O 06/14/16 06/14/16 06/14/16 06/15/16 06/15/16 06/15/16 07:00 15:00 23:00 07:00 15:00 23:00 Intake Total 480 ml 240 ml 320 ml Output Total 500 ml Balance -20 ml 240 ml 320 ml Intake Oral 480 ml 240 ml 320 ml Output Urine Total 500 ml # Voids 2 2 4 # Bowel Movements 0 Result Diagram: 06/15/16 0900 06/15/16 0900 Imaging Last Impressions Chest X-Ray 06/12/16 0054 Signed Impressions: Service Date/Time: May 01:14 - CONCLUSION: 1. Mild infiltrate in the left lung base. 2. Pulmonary venous congestion. Royal Anderson MD Upper Extremity CTA 06/12/16 0000 Signed Impressions: Service Date/Time: May 03:01 - CONCLUSION: 1. Focal segmental occlusion of the left brachial artery for about 5 cm in the upper left arm. 2. 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 3. There is flow in the radial artery down to the level of the wrist. Royal Anderson MD Objective Remarks GENERAL: This is a well-nourished, well-developed patient, in no apparent distress. SKIN: No rashes, ecchymoses or lesions. Cool and dry. HEAD: Atraumatic. Normocephalic. No temporal or scalp tenderness. EYES: No scleral icterus. No injection or drainage. ENT: Nose without bleeding, purulent drainage or septal hematoma. Airway patent. NECK: Trachea midline. No JVD CARDIOVASCULAR: Regular rate and rhythm without murmurs, gallops, or rubs. RESPIRATORY: Clear to auscultation. Breath sounds equal bilaterally. No wheezes , rales, or rhonchi. GASTROINTESTINAL: Abdomen soft, non-tender, nondistended. No guarding. MUSCULOSKELETAL: Extremities without clubbing, cyanosis, or edema. Left upper extremity is draped on a strap. There is some dried blood and ecchymotic area on the inner side of the arm, however there is no active bleeding. The left upper extremity has good capillary refill and sensation is intact. NEUROLOGICAL: Awake and alert. Motor and sensory grossly within normal limits. Normal speech. Procedures Status post left upper embolectomy Medications and IVs Current Medications Medications (Trade) Dose Ordered Sig/Alex Route Start Time Stop Time Status Last Admin (NS Flush) 2 ml UNSCH PRN IVF 06/12/16 01:00 (Heparin Inj) 5,000 units UNSCH PRN IV 06/12/16 10:00 Heparin Sodium (Porcine) 2500 units 2,500 units UNSCH PRN IV 06/12/16 10:00 (Heparin-D5W Inj) 250 ml @ 0 mls/hr TITRATE IV 06/12/16 04:00 06/13/16 23:34 (NS Flush) 2 ml UNSCH PRN IV FLUSH 06/12/16 05:00 (NS Flush) 2 ml BID IV FLUSH 06/12/16 09:00 06/15/16 09:52 (Zofran Inj) 4 mg Q6H PRN IVP 06/12/16 05:00 (Narcan Inj) 0.4 mg UNSCH PRN IV 06/12/16 05:00 (Ecotrin Ec) 81 mg DAILY PO 06/12/16 09:00 06/15/16 09:46 (Bumetanide) 2 mg BID PO 06/12/16 09:00 Hold 06/14/16 09:14 (Sinemet Cr 50-200 Mg) 1 tab DAILY PO 06/12/16 09:00 06/15/16 09:47 (Flexeril) 10 mg HS PO 06/12/16 21:00 06/14/16 20:40 (Lexapro) 10 mg DAILY PO 06/12/16 09:00 06/15/16 09:46 (Neurontin) 400 mg TID PO 06/12/16 09:00 06/15/16 13:19 ([place] 5-325 Mg) 1 tab Q4H PRN PO 06/12/16 05:30 06/13/16 21:10 (Lactinex) 1 tab BID PO 06/12/16 09:00 06/15/16 09:46 (Prinivil) 10 mg DAILY PO 06/12/16 09:00 Hold 06/14/16 09:14 (Pravachol) 20 mg HS PO 06/12/16 21:00 06/14/16 20:40 (Lopressor) 25 mg DAILY PO 06/12/16 09:00 Hold 06/13/16 09:54 (Ditropan) 5 mg DAILY PO 06/12/16 09:00 06/15/16 09:47 (KCl) 10 meq DAILY PO 06/12/16 09:00 06/15/16 09:47 (Desyrel) 50 mg HS PO 06/12/16 21:00 06/14/16 20:40 (Accolate) 20 mg DAILY PO 06/12/16 09:00 06/15/16 09:46 (Protonix) 40 mg DAILY PO 06/12/16 09:00 06/15/16 09:46 (Requip) 4 mg TID PO 06/12/16 09:00 06/15/16 13:20 (Apresoline Inj) 10 mg Q30M PRN IV PUSH 06/12/16 05:30 06/12/16 05:42 (D50w (Vial) Inj) 25 ml UNSCH PRN IV PUSH 06/12/16 07:30 (Glucagon Inj) 1 mg UNSCH PRN OTHER 06/12/16 07:30 (Vasotec Inj) 1.25 mg Q6H PRN IV PUSH 06/12/16 09:45 Urinary Catheter: No Vascular Central Line Catheter: No A/P Problem List: (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 Vascular surgery consulted. The patient status post left brachial artery embolectomy with good results. Continue to follow-up muscle surgery recommendations. As per vascular surgery continue anticoagulation. (2) Paroxysmal atrial fibrillation Patient has history of paroxysmal atrial fibrillation. Cardiology has been consulted. Remains in normal sinus rhythm. As per cardiology documentation the patient has had paroxysmal atrial fibrillation/flutter since 2007. Cardiology recommends discharging the patient on Xarelto. (3) Hypertension Plan: Antihypertensive medications were held on 06/13/16 due to patient being hypotensive. Blood pressure improved after the patient was given 500 mL of normal saline IV bolus. Today on 06/14/16 the patient blood pressure is more stable. Continue to hold antihypertensive medications. / BP stable. (4) CAD (coronary artery disease) Plan: cardiology consulted. Stable s/p PTCA's of mid and distal LAD 02/2016. Continue daily aspirin. Plavix can be stopped when Xarelto begun. I will hold Plavix since patient is currently on a heparin drip. (5) Hypotension Plan: Patient with hypotension of 74/40 on 06/13, 500 mL of normal saline bolused with good BP response. Hold antihypertensive medications. BP today more stable. Continue to monitor vital signs and continue to hold antihypertensive medications. 4/30 BP better. Continue to hold antihypertensive medications. Discharge Planning Continue to monitor in the medical floor. Problem Qualifiers (1) Hypertension: Qualified Code: I10 - Essential hypertension (2) CAD (coronary artery disease): Qualified Code: I25.10 - Coronary artery disease involving [place] coronary artery of [place] heart without angina pectoris (3) Hypotension: Qualified Code: I95.9 - Hypotension, unspecified hypotension type Jacobo Felipe MD Jun 15, 2016 13:39
[2016-06-15 16:00] VITALS: BP 104/52; PULSE 76; RESP 20; TEMP 98.3; O2SAT 95
--- NOTE | 2016-06-15 18:52 | RADRPT ---
EXAM DATE/TIME: 06/15/2016 18:23 [facility] COMPARISON: No previous studies available for comparison. INDICATIONS : Expressive aphasia. RADIATION DOSE: 42.85 CTDIvol (mGy) MEDICAL HISTORY : Cerebrovascular disease. Congestive heart failure. Diabetes mellitus type 2. SURGICAL HISTORY : Angioplasty. Cholecystectomy.Colon resection. ENCOUNTER: Initial ACUITY: 1 day PAIN SCALE: 0/10 LOCATION: cranial TECHNIQUE: Multiple contiguous axial images were obtained of the head. Using automated exposure control and adj ustment of the mA and/or kV according to patient size, radiation dose was kept as low as reasonably a chievable to obtain optimal diagnostic quality images. FINDINGS: There is no evidence for intracranial hemorrhage, mass effect, mass lesions, or edema. The visualize d bony structures appear intact. Slight degree of brain atrophy is seen. Slight periventricular whit e matter changes are seen nonspecific mostly consistent with chronic small vessel ischemic changes. There are no signs of acute infarction for technique. CONCLUSION: Slight atrophic and small vessel ischemic changes without any evidence for acute hemorrhage or mass effect. Jenaro Cool MD on June 15, 2016 at 18:49 Board Certified Radiologist. This report was verified electronically.
[2016-06-15] MEDS ORDERED: GADODIAMIDE PF 287 MG/ML 10 ML VIAL (for RAD MRI) IV ONE (19:50)
[2016-06-15 20:00] VITALS: BP 149/68; PULSE 78; RESP 20; TEMP 97.2; O2SAT 97
--- NOTE | 2016-06-15 20:17 | RADRPT ---
EXAM DATE/TIME: 06/15/2016 19:35 [facility] COMPARISON: CT BRAIN W/O CONTRAST, June 15, 2016, 18:23. INDICATIONS : Episode of expressive aphasia. CONTRAST: 14 cc Omniscan (gadodiamide) IV MEDICAL HISTORY : Diabetes mellitus type 2. Hypertension. Congestive heart failure. IA SURGICAL HISTORY : Appendectomy. Hysterectomy. Tonsillectomy. Katty rectal ca with resection. Bracial artery PCTA ENCOUNTER: Initial ACUITY: 1 day PAIN SCORE: 0/10 LOCATION: cranial TECHNIQUE: Multiplanar, multisequence MRI of the brain was performed both prior to and following the administrat ion of paramagnetic contrast. FINDINGS: There is no evidence for intracranial hemorrhage, mass effect, mass lesions, edema, or extra-axial fl uid collections. There are no signs of acute infarction for technique. The diffusion portion, and po stcontrast portion are unremarkable. Slight degree of brain atrophy is seen. Slight periventricular [place] matter changes are seen nonspecific mostly consistent with chronic small vessel ischemic changes . There is mild mucoperiosteal thickening within some of the eithmoid air cells. CONCLUSION: Chronic atrophic and small vessel ischemic changes without any evidence for acute hemorrhage or mass effect. Jenaro Cool MD on June 15, 2016 at 20:13 Board Certified Radiologist. This report was verified electronically.
[2016-06-15] MEDS: CYCLOBENZAPRINE HCL 10 MG TAB PO SCH (22:20)
[2016-06-15] MEDS: traZODone HCL 50 MG TAB PO SCH (22:20)
[2016-06-15] MEDS: PRAVASTATIN SOD 20 MG TAB PO SCH (22:21)
[2016-06-16] VITALS: BP 145/65; PULSE 80; RESP 20; TEMP 97.8; O2SAT 95
[2016-06-16 04:00] VITALS: BP 92/60; PULSE 84; RESP 20; TEMP 99.9; O2SAT 93
[2016-06-16] MEDS: ACETAMINOPHEN/HYDROcodone 325 MG/5 MG TAB PO PRN (05:38)
[2016-06-16 08:00] VITALS: BP 152/72; PULSE 96; RESP 20; TEMP 98.2; O2SAT 96
[2016-06-16 08:05] VITALS: PULSE 86
[2016-06-16 08:59] LABS: APTT (PATIENT) 56.8 SEC (24.3-30.1)
[2016-06-16] MEDS: PANTOPRAZOLE SOD 40 MG DELAYED RELEASE TAB PO SCH (09:00)
[2016-06-16] MEDS: SODIUM CHLORIDE 0.9% FLUSH 10 ML FLUSH IV FLUSH SCH (09:00)
[2016-06-16] MEDS: LEVODOPA/CARBIDOPA 1 TAB TABCR PO SCH (09:00)
[2016-06-16] MEDS: POTASSIUM CHLORIDE 10 MEQ CONTROLLED RELEASE TAB PO SCH (09:00)
[2016-06-16] MEDS: ESCITALOPRAM OXALATE 10 MG TAB PO SCH (09:00)
[2016-06-16] MEDS: LACTOBACILLUS ACIDOPHILUS TAB PO SCH (09:00)
[2016-06-16] MEDS: ASPIRIN EC 81 MG TABEC PO SCH (09:00)
[2016-06-16] MEDS: GABAPENTIN 400 MG CAP PO SCH ×2 (09:00→12:57)
[2016-06-16] MEDS: OXYBUTYNIN CHLORIDE 5 MG TAB PO SCH (09:00)
[2016-06-16] MEDS: ZAFIRLUKAST 20 MG TAB PO SCH (09:00)
--- NOTE | 2016-06-16 09:39 | PD.VS.PN ---
Subjective POD #: 4 Procedure(s): L brachial artery embolectomy Subjective/Hospital Course Arm ecchymotic but hand ok Pain controlled Objective Vitals/I&O Date Time Temp Pulse Resp B/P Pulse Ox O2 Delivery O2 Flow Rate FiO2 06/16/16 08:00 98.2 96 20 152/72 96 06/16/16 01:42 Room Air 06/16/16 00:00 97.8 80 20 145/65 95 06/15/16 20:00 97.2 78 20 149/68 97 06/15/16 16:00 98.3 76 20 104/52 95 06/15/16 12:00 98.1 72 20 111/53 95 06/16/16 06/16/16 06/16/16 07:00 15:00 23:00 Intake Total 220 ml Balance 220 ml Exam: L UE ecchymotic but no discrete hematoma Palpable radial pulse Good hand strength Laboratory Laboratory Tests Test 06/16/16 07:40 Activated Partial 56.8 Thromboplast Time Assessment and Plan Plan Status post brachial artery embolectomy left upper extremity. Ok to resume anticoagulation and transition to home/rehab RUFINO wrap fingers to shoulder Continue to use hand as she is doing. Will arrange f/u in my clinic. John Paul Poole MD FACS patient's librarian [facility] John Paul Poole MD June 16, 2016 09:39
--- NOTE | 2016-06-16 11:54 | HHI.PR ---
Subjective Remarks This is a pleasant 85 y/o who came to ER due to sudden onset of left arm numbness, weakness, with swelling and pain has history of Atrial fibrillation, on Aspirin and Plavix at home, followed regularly by microcomputer support specialist, has been also on Coumadin, found with Left Upper Brachial Artery Thrombosis and status post Vascular specialist evaluation and status post Left Brachial artery Embolectomy, today recommended for re start on her oral anticoagulation and discharge home, discussed with nurse Miss Ashford and with case supervisor okay to discharge home on [facility] for PT and Skilled nurse. today seen by Vascular customer success specialist Doctor John Paul Poole, Arm continue Ecchymotic but hand okay and pain controlled, palpable radial pulse, good hand strength. arrange follow up in his clinic. Objective Vital Signs Date Time Temp Pulse Resp B/P Pulse Ox O2 Delivery O2 Flow Rate FiO2 06/16/16 08:00 98.2 96 20 152/72 96 06/16/16 01:42 Room Air 06/16/16 00:00 97.8 80 20 145/65 95 06/15/16 20:00 97.2 78 20 149/68 97 06/15/16 16:00 98.3 76 20 104/52 95 06/15/16 12:00 98.1 72 20 111/53 95 I/O 06/15/16 06/15/16 06/15/16 06/16/16 06/16/16 06/16/16 07:00 15:00 23:00 07:00 15:00 23:00 Intake Total 320 ml 480 ml 240 ml 220 ml Balance 320 ml 480 ml 240 ml 220 ml Intake Oral 320 ml 480 ml 240 ml 220 ml # Voids 4 4 1 2 # Bowel Movements 0 Result Diagram: 06/15/16 0900 06/15/16 0900 Imaging Last Impressions Head CT 06/15/16 1802 Signed Impressions: Service Date/Time: Wednesday, June 15, 2016 18:23 - CONCLUSION: Slight atrophic and small vessel ischemic changes without any evidence for acute hemorrhage or mass effect. Jenaro Cool MD Brain MRI 06/15/16 0000 Signed Impressions: Service Date/Time: Wednesday, June 15, 2016 19:35 - CONCLUSION: Chronic atrophic and small vessel ischemic changes without any evidence for acute hemorrhage or mass effect. Jenaro Cool MD Chest X-Ray 06/12/16 0054 Signed Impressions: Service Date/Time: May 01:14 - CONCLUSION: 1. Mild infiltrate in the left lung base. 2. Pulmonary venous congestion. Royal Anderson MD Upper Extremity CTA 06/12/16 0000 Signed Impressions: Service Date/Time: May 03:01 - CONCLUSION: 1. Focal segmental occlusion of the left brachial artery for about 5 cm in the upper left arm. 2. 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 3. There is flow in the radial artery down to the level of the wrist. Royal Anderson MD Procedures Left upper Brachial Artery Thrombosis status post Left Brachial artery Embolectomy Other Results Laboratory Tests Test 06/12/16 06/13/16 06/15/16 06/16/16 01:00 02:19 09:00 07:40 Prothrombin Time 13.1 SEC Prothromb Time International 1.2 RATIO Ratio Magnesium Level 2.1 MG/DL Total Creatine Kinase 43 U/L Troponin I 0.03 NG/ML Neutrophils (%) (Auto) 64.9 % Lymphocytes (%) (Auto) 26.3 % Monocytes (%) (Auto) 6.3 % Eosinophils (%) (Auto) 2.1 % Basophils (%) (Auto) 0.4 % Neutrophils # (Auto) 4.4 TH/MM3 Lymphocytes # (Auto) 1.8 TH/MM3 Monocytes # (Auto) 0.4 TH/MM3 Eosinophils # (Auto) 0.1 TH/MM3 Basophils # (Auto) 0.0 TH/MM3 CBC Comment DIFF FINAL Differential Comment White Blood Count 6.5 TH/MM3 Red Blood Count 3.10 MIL/MM3 Hemoglobin 9.9 GM/DL Hematocrit 29.0 % Mean Corpuscular Volume 93.7 FL Mean Corpuscular Hemoglobin 32.0 PG Mean Corpuscular Hemoglobin 34.1 % Concent Red Cell Distribution Width 13.9 % Platelet Count 192 TH/MM3 Mean Platelet Volume 8.0 FL Sodium Level 136 MEQ/L Potassium Level 3.6 MEQ/L Chloride Level 97 MEQ/L Carbon Dioxide Level 30.3 MEQ/L Anion Gap 9 MEQ/L Blood Urea Nitrogen 21 MG/DL Creatinine 0.91 MG/DL Estimat Glomerular Filtration 59 ML/MIN Rate Random Glucose 130 MG/DL Calcium Level 8.9 MG/DL Activated Partial 56.8 SEC Thromboplast Time Objective Remarks GENERAL: This is a well-nourished, well-developed patient, in no apparent distress. SKIN: No rashes, Left Arm ecchymosis. HEAD: Atraumatic. Normocephalic. No temporal or scalp tenderness. EYES: No scleral icterus. No injection or drainage. ENT: Nose without bleeding, purulent drainage or septal hematoma. Airway patent. NECK: Trachea midline. No JVD CARDIOVASCULAR: Regular rate and rhythm without murmurs, gallops, or rubs. RESPIRATORY: Clear to auscultation. Breath sounds equal bilaterally. No wheezes , rales, or rhonchi. GASTROINTESTINAL: Abdomen soft, non-tender, nondistended. No guarding. MUSCULOSKELETAL: Left upper extremity is draped on a strap. There is some dried blood and ecchymotic area on the inner side of the arm, however there is no active bleeding. The left upper extremity has good capillary refill and sensation is intact. NEUROLOGICAL: Awake and alert. Motor and sensory grossly within normal limits. Normal speech. Medications and IVs Current Medications Medications (Trade) Dose Ordered Sig/Alex Route Start Time Stop Time Status Last Admin (NS Flush) 2 ml UNSCH PRN IVF 06/12/16 01:00 (Heparin Inj) 5,000 units UNSCH PRN IV 06/12/16 10:00 Heparin Sodium (Porcine) 2500 units 2,500 units UNSCH PRN IV 06/12/16 10:00 (Heparin-D5W Inj) 250 ml @ 0 mls/hr TITRATE IV 06/12/16 04:00 06/13/16 23:34 (NS Flush) 2 ml UNSCH PRN IV FLUSH 06/12/16 05:00 (NS Flush) 2 ml BID IV FLUSH 06/12/16 09:00 06/15/16 22:21 (Zofran Inj) 4 mg Q6H PRN IVP 06/12/16 05:00 (Narcan Inj) 0.4 mg UNSCH PRN IV 06/12/16 05:00 (Ecotrin Ec) 81 mg DAILY PO 06/12/16 09:00 06/15/16 09:46 (Bumetanide) 2 mg BID PO 06/12/16 09:00 Hold 06/14/16 09:14 (Sinemet Cr 50-200 Mg) 1 tab DAILY PO 06/12/16 09:00 06/15/16 09:47 (Flexeril) 10 mg HS PO 06/12/16 21:00 06/15/16 22:20 (Lexapro) 10 mg DAILY PO 06/12/16 09:00 06/15/16 09:46 (Neurontin) 400 mg TID PO 06/12/16 09:00 06/15/16 18:00 ([place] 5-325 Mg) 1 tab Q4H PRN PO 06/12/16 05:30 06/16/16 05:38 (Lactinex) 1 tab BID PO 06/12/16 09:00 06/15/16 22:20 (Prinivil) 10 mg DAILY PO 06/12/16 09:00 Hold 06/14/16 09:14 (Pravachol) 20 mg HS PO 06/12/16 21:00 06/15/16 22:21 (Lopressor) 25 mg DAILY PO 06/12/16 09:00 Hold 06/13/16 09:54 (Ditropan) 5 mg DAILY PO 06/12/16 09:00 06/15/16 09:47 (KCl) 10 meq DAILY PO 06/12/16 09:00 06/15/16 09:47 (Desyrel) 50 mg HS PO 06/12/16 21:00 06/15/16 22:20 (Accolate) 20 mg DAILY PO 06/12/16 09:00 06/15/16 09:46 (Protonix) 40 mg DAILY PO 06/12/16 09:00 06/15/16 09:46 (Requip) 4 mg TID PO 06/12/16 09:00 06/15/16 18:00 (Apresoline Inj) 10 mg Q30M PRN IV PUSH 06/12/16 05:30 06/12/16 05:42 (D50w (Vial) Inj) 25 ml UNSCH PRN IV PUSH 06/12/16 07:30 (Glucagon Inj) 1 mg UNSCH PRN OTHER 06/12/16 07:30 (Vasotec Inj) 1.25 mg Q6H PRN IV PUSH 06/12/16 09:45 A/P Assessment and Plan (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 Vascular customer success specialist following The patient status post left brachial artery embolectomy with good results. Vascular customer success specialist Doctor John Paul Poole, Arm continue Ecchymotic but hand okay and pain controlled, palpable radial pulse, good hand strength. arrange follow up in his clinic. (2) Paroxysmal atrial fibrillation Patient has history of paroxysmal atrial fibrillation. Cardiology has been consulted. Remains in normal sinus rhythm. As per cardiology documentation the patient has had paroxysmal atrial fibrillation/flutter since 2007. Cardiology recommends discharging the patient on Xarelto. (3) Hypertension Plan: Antihypertensive medications were held on 06/13/16 due to patient being hypotensive. Blood pressure improved after the patient was given 500 mL of normal saline IV bolus. Today on 06/14/16 the patient blood pressure is more stable. Continue to hold antihypertensive medications. today blood pressure increasing will re start anti hypertensives. (4) CAD (coronary artery disease) Plan: cardiology consulted. Stable s/p PTCA's of mid and distal LAD 02/2016. Continue daily aspirin. Plavix can be stopped when Xarelto begun. I will hold Plavix. Discussed with Patient and nurse Miss Ashford, Tried to contact her Next of Kin Hellen Julia to the phone number [phone] no answer, also discussed with Mrs. Vikki Dumont but she states he must be working in the [employer]. Discharge Planning Discharge Home with [facility] Ok Morley MD June 16, 2016 11:54 Ok Morley MD June 16, 2016 11:54
[2016-06-16 12:00] VITALS: BP 116/59; PULSE 106; RESP 20; TEMP 98.2; O2SAT 97
[2016-06-16] MEDS ORDERED: RIVAROXABAN 15 MG TAB PO ONE (12:00)
[2016-06-16] MEDS ORDERED: XARE20TA PO (12:24)
[2016-06-16] MEDS ORDERED: XARE15TA PO (12:24)
[2016-06-16] MEDS ORDERED: HYDR-3516 PO (12:24)
--- NOTE | 2016-06-16 12:25 | HHI.FF ---
Face to Face Verification Diagnosis: (1) CAD (coronary artery disease) (2) Paroxysmal atrial fibrillation (3) Postoperative anemia due to acute blood loss (4) Brachial artery thrombosis Physical Therapy Order: Evaluate and Treat, Improve ambulation, Strength and gait training Home Health Nursing Order: Signs/symptoms of disease process Medication education-adverse effect Nursing assessment with vital signs I have seen patient Vikki Dumont on 06/16/16. My clinical findings support the need for the requested home health care services because: Ltd mobility - disease progression Deconditioned w/ increased weakness I certify that my clinical findings support that this patient is homebound because: Unsafe to leave home unassisted Ok Morley MD June 16, 2016 12:25
--- NOTE | 2016-06-16 12:37 | HHI.DS ---
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 Patient reported that she came to the hospital because yesterday night, she all of a sudden started getting left arm numbness, weakness, with swelling and pain. She states she thought she was having a stroke. She stated that she also noted her left hand to be much colder than her right. However denies any bluish discoloration. Patient has history of atrial fibrillation. She states she is on aspirin and Plavix at home. She states the Plavix was started recently. She reports she saw her rn clinical appeals yesterday. She was told that she was doing quite well and that she needs to follow up only every 5 months or so. She reports that at one point she was on Coumadin. But states this was stopped a few years ago. She denies any prior history of GI bleeds. Denies falling down frequently. However she does live alone, and is at high risk of falls secondary to ambulatory status. c/o constipation - was on hydrocodone no blood in stool or urine no chest apins, no shrotness, no syncope CBC/BMP: 06/15/16 0900 06/15/16 0900 Significant Findings Laboratory Tests Test 06/13/16 06/14/16 06/14/16 06/15/16 16:42 08:46 13:20 09:00 Activated Partial 62.5 SEC 67.1 SEC 62.6 SEC Thromboplast Time (24.3-30.1) (24.3-30.1) (24.3-30.1) Red Blood Count 3.12 MIL/MM3 3.10 MIL/MM3 (4.00-5.30) (4.00-5.30) Hemoglobin 9.7 GM/DL 9.9 GM/DL (11.6-15.3) (11.6-15.3) Hematocrit 29.3 % 29.0 % (35.0-46.0) (35.0-46.0) Chloride Level 96 MEQ/L 97 MEQ/L (98-107) (98-107) Carbon Dioxide Level 32.2 MEQ/L (21.0-32.0) Blood Urea Nitrogen 22 MG/DL (7-18) 21 MG/DL (7-18) Creatinine 1.10 MG/DL (0.50-1.00) Estimat Glomerular Filtration 47 ML/MIN (>89) 59 ML/MIN (>89) Rate Random Glucose 125 MG/DL 130 MG/DL (74-106) (74-106) Test 06/16/16 07:40 Activated Partial 56.8 SEC Thromboplast Time (24.3-30.1) Imaging Last Impressions Head CT 06/15/16 1802 Signed Impressions: Service Date/Time: Wednesday, June 15, 2016 18:23 - CONCLUSION: Slight atrophic and small vessel ischemic changes without any evidence for acute hemorrhage or mass effect. Jenaro Cool MD Brain MRI 06/15/16 0000 Signed Impressions: Service Date/Time: Wednesday, June 15, 2016 19:35 - CONCLUSION: Chronic atrophic and small vessel ischemic changes without any evidence for acute hemorrhage or mass effect. Jenaro Cool MD Chest X-Ray 06/12/16 0054 Signed Impressions: Service Date/Time: May 01:14 - CONCLUSION: 1. Mild infiltrate in the left lung base. 2. Pulmonary venous congestion. Royal Anderson MD Upper Extremity CTA 06/12/16 0000 Signed Impressions: Service Date/Time: May 03:01 - CONCLUSION: 1. Focal segmental occlusion of the left brachial artery for about 5 cm in the upper left arm. 2. 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 3. There is flow in the radial artery down to the level of the wrist. Royal Anderson MD PE at Discharge GENERAL: This is a well-nourished, well-developed patient, in no apparent distress. SKIN: No rashes, Left Arm ecchymosis. HEAD: Atraumatic. Normocephalic. No temporal or scalp tenderness. EYES: No scleral icterus. No injection or drainage. ENT: Nose without bleeding, purulent drainage or septal hematoma. Airway patent. NECK: Trachea midline. No JVD CARDIOVASCULAR: Regular rate and rhythm without murmurs, gallops, or rubs. RESPIRATORY: Clear to auscultation. Breath sounds equal bilaterally. No wheezes , rales, or rhonchi. GASTROINTESTINAL: Abdomen soft, non-tender, nondistended. No guarding. MUSCULOSKELETAL: Left upper extremity is draped on a strap. There is some dried blood and ecchymotic area on the inner side of the arm, however there is no active bleeding. The left upper extremity has good capillary refill and sensation is intact. NEUROLOGICAL: Awake and alert. Motor and sensory grossly within normal limits. Normal speech. Hospital Course This is a pleasant 85 y/o who came to ER due to sudden onset of left arm numbness, weakness, with swelling and pain has history of Atrial fibrillation, on Aspirin and Plavix at home, followed regularly by welding specialist, has been also on Coumadin, found with Left Upper Brachial Artery Thrombosis and status post Vascular specialist evaluation and status post Left Brachial artery Embolectomy, today recommended for re start on her oral anticoagulation and discharge home, discussed with nurse Miss Ashford and with correctional case manager okay to discharge home on [facility] for PT and Skilled nurse. today seen by Vascular document improvement specialist Doctor John Paul Poole, Arm continue Ecchymotic but hand okay and pain controlled, palpable radial pulse, good hand strength. arrange follow up in his clinic. 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 Vascular document improvement specialist following The patient status post left brachial artery embolectomy with good results. Vascular document improvement specialist Doctor John Paul Poole, Arm continue Ecchymotic but hand okay and pain controlled, palpable radial pulse, good hand strength. arrange follow up in his clinic. (2) Paroxysmal atrial fibrillation Patient has history of paroxysmal atrial fibrillation. Cardiology has been consulted. Remains in normal sinus rhythm. As per cardiology documentation the patient has had paroxysmal atrial fibrillation/flutter since 2007. Cardiology recommends discharging the patient on Xarelto. (3) Hypertension Plan: Antihypertensive medications were held on 06/13/16 due to patient being hypotensive. Blood pressure improved after the patient was given 500 mL of normal saline IV bolus. Today on 06/14/16 the patient blood pressure is more stable. Continue to hold antihypertensive medications. today blood pressure increasing will re start anti hypertensives. (4) CAD (coronary artery disease) Plan: cardiology consulted. Stable s/p PTCA's of mid and distal LAD 02/2016. Continue daily aspirin. Plavix can be stopped when Xarelto begun. I will hold Plavix. Discussed with Patient and nurse Miss Asfhord, Tried to contact her Next of Kin Hellen Dumont to the phone number [phone] no answer, also discussed with Mrs. Vikki Dumont but she states he must be working in the [employer]. Discharge Planning Discharge Home with [facility] Discussed with her Daughter Mrs. Hellen Dumont who called later to talk to me she wanted about the possibility to get a Rehab placement but was not supported by Physical Therapy definitely the patient will need a Caregiver. all questions answered to the best of my abilities. Pt Condition on Discharge: Good Discharge Disposition: Disch w/ Home Health Serv Discharge Time: > 30 minutes Discharge Instructions DIET: Follow Instructions for: Heart Healthy Diet Activities you can perform: Regular-No Restrictions Other Activity Instructions: Follow recommendations by Physical Therapy Ok Morley MD June 16, 2016 12:37
[2016-06-16] MEDS ORDERED: RIVAROXABAN 15 MG TAB PO SCH (21:00)
== END 2016-06-16 17:00 | disposition home health service (06) | DRG 253 ==
LOC: NEPE 23:47 → NEDA 06-12 04:17 → N04B 06-12 15:00
PROVIDERS: ADMIT Internal Medicine; ATTEND Internal Medicine
PROC: 03C80ZZ Extirpation of Matter from Left Brachial Artery, Open Approach (ICD-10-PCS; principal; 2016-06-12 10:05)
DX: I74.2 Embolism and thrombosis of arteries of the upper extremities (principal); D62 Acute posthemorrhagic anemia; I95.9 Hypotension, unspecified; I48.92 Unspecified atrial flutter; I11.0 Hypertensive heart disease with heart failure; I50.9 Heart failure, unspecified; I48.0 Paroxysmal atrial fibrillation; E11.9 Type 2 diabetes mellitus without complications; E78.5 Hyperlipidemia, unspecified; I25.10 Atherosclerotic heart disease of native coronary artery without angina pectoris; Z98.61 Coronary angioplasty status; Z88.2 Allergy status to sulfonamides; I25.2 Old myocardial infarction; Z79.82 Long term (current) use of aspirin; Z86.73 Personal history of transient ischemic attack (TIA), and cerebral infarction without residual deficits; Z85.048 Personal history of other malignant neoplasm of rectum, rectosigmoid junction, and anus
CPT/HCPCS: 70450; 70553; 71010; 73206; 80048; 82550; 82948; 83735; 84484; 85025; 85027; 85610; 85730; 93005; 93306; A9579; C1757; J0131; J0360; J0690; J1644; J2250; J2405; J2710; J3010; J7040; Q9967

== ENCOUNTER 2016-10-24 20:06 | Emergency (ER) | payer MEDICARE, OTHER ==
[~2016-10-24] VITALS: Ht 147.3 cm; Wt 70.0 kg
[~2016-10-24 20:06] MED LIST changes: +ASPI1TAB69 PO; -BACL10TA PO; -BUME0.5T; +BUME2TAB PO; +CARB50TA3 PO; -CART120C2 PO; -COUM1TAB PO; +CYCL1TAB29 PO; -DIGO.125 PO; +ESCI10TA PO; +GABA300C5 PO; -GLIM1 PO; -GLUCTAB; +HYDR-3516 PO; +LACTCAP8 PO; -LEXA5TAB PO; +LISI10TA3 PO; +LOVA20TA PO; -METO25 PO; +METO25TA3 PO; -NEUR100C PO; +OMEP40CA2 PO; +OXYB5TAB10 PO; -POTA-243; +POTA10TA15 PO; +REQU4TAB3 PO; -SLOWTAB PO; -SPIR25; +TRAZ50TA12 PO; +XARE15TA PO; +XARE20TA PO; +ZAFI1TAB4 PO
[2016-10-24 20:31] VITALS: BP 140/67; PULSE 71; RESP 24; TEMP 98.3; O2SAT 100
--- NOTE | 2016-10-24 21:16 | PD ---
HPI Chief Complaint: Respiratory Symptoms Time Seen by Provider: 21:02 Travel History International Travel<30 days: No Contact w/Intl Traveler<30days: No Traveled to known affect area: No History of Present Illness HPI 85-year-old female complains of shortness of breath. Patient states that the shortness breath started yesterday afternoon. Patient has history of CHF. Patient has been taking her medications as directed. Patient denies any headache. Patient denies any chest pain. Patient denies abdominal pain. Patient denies any nausea vomiting diarrhea. Patient states that she has been constipated. Patient denies any fever chills. Patient denies any dysuria or frequency. PFSH Past Medical History Arthritis: Yes Asthma: Yes Atrial Fibrillation: Yes Anxiety: Yes Depression: Yes Heart Rhythm Problems: Yes (a- fib) Cancer: No High Cholesterol: Yes Chest Pain: No Congestive Heart Failure: Yes COPD: No Cerebrovascular Accident: Yes (5 years ago) Diabetes: Yes Patient Takes Glucophage: No Endocrine: Yes Gastrointestinal Disorders: Yes Genitourinary: No Headaches: Yes Hypertension: Yes Immune Disorder: No Implanted Vascular Access Dvce: No Insomnia: Yes Musculoskeletal: Yes (restless leg syndrome) Neurologic: Yes Psychiatric: Yes Reproductive: No Respiratory: Yes Migraines: No Seizures: No Sleep Apnea: Yes Thyroid Disease: No Ulcer: Yes Tetanus Vaccination: < 5 Years Influenza Vaccination: Yes ?: Not Past Surgical History Abdominal Surgery: Yes (gallbladder/ appdenix/ colon removal) Appendectomy: Yes Cholecystectomy: Yes Endocrine Surgery: Yes (tonsills) Tonsillectomy: Yes Other Surgery: Yes Social History Alcohol Use: No Tobacco Use: No Substance Use: No Allergies-Medications (Allergen,Severity, Reaction): Coded Allergies: Sulfa (Sulfonamide Antibiotics) (Unverified Allergy, Mild, 09/30/16) Reported Meds & Prescriptions Reported Meds & Active Scripts Active Reported Requip (Ropinirole) 4 Mg Tab 2 Mg PO TID Escitalopram (Escitalopram Oxalate) 10 Mg Tab 10 Mg PO DAILY Trazodone (Trazodone HCl) 50 Mg Tab 50 Mg PO HS Metoprolol Tartrate 25 Mg Tab 12.5 Mg PO BID Bumetanide 2 Mg Tab 1 Mg PO DAILY Lovastatin 20 Mg Tab 20 Mg PO HS Potassium Chloride Microencaps 10 Meq Tab 10 Meq PO BID Gabapentin 300 Mg Cap 400 Mg PO TID Zafirlukast 20 Mg Tab 20 Mg PO BID Review of Systems General / Constitutional: No: Fever Eyes: No: Visual changes HENT: No: Headaches Cardiovascular: No: Chest Pain or Discomfort Respiratory: Positive: Shortness of Breath Gastrointestinal: No: Abdominal Pain Genitourinary: No: Dysuria Musculoskeletal: No: Pain Skin: No Rash Neurologic: No: Weakness Psychiatric: No: Depression Endocrine: No: Polydipsia Hematologic/Lymphatic: No: Easy Bruising Physical Exam Narrative GENERAL: Well-nourished, well-developed patient. SKIN: Focused skin assessment warm/dry. HEAD: Normocephalic. EYES: No scleral icterus. No injection or drainage. NECK: Supple, trachea midline. No JVD or lymphadenopathy. CARDIOVASCULAR: Regular rate and rhythm without murmurs, gallops, or rubs. RESPIRATORY: Breath sounds equal bilaterally. No accessory muscle use.. Rhonchi at the bases. No wheezes. GASTROINTESTINAL: Abdomen soft, non-tender, nondistended. MUSCULOSKELETAL: No cyanosis, or edema. BACK: Nontender without obvious deformity. No CVA tenderness. Neurologic exam normal. Data Data Last Documented VS Vital Signs Date Time Temp Pulse Resp B/P (MAP) Pulse Ox O2 Delivery O2 Flow Rate FiO2 10/24/16 22:05 78 16 128/75 (92) 100 10/24/16 20:35 Room Air 10/24/16 20:31 98.3 Orders Orders Electrocardiogram (10/24/16 21:11) Complete Blood Count With Diff (10/24/16 21:11) Comprehensive Metabolic Panel (10/24/16 21:11) Creatine Kinase (Cpk) (10/24/16 21:11) Troponin I (10/24/16 21:11) B-Type Natriuretic Peptide (10/24/16 21:11) Prothrombin Time / Inr (Pt) (10/24/16 21:11) Act Partial Throm Time (Ptt) (10/24/16 21:11) Urinalysis - C+S If Indicated (10/24/16 21:11) Chest, Single Ap (10/24/16 21:11) Iv Access Insert/Monitor (10/24/16 21:11) Ecg Monitoring (10/24/16 21:11) Oximetry (10/24/16 21:11) Labs Laboratory Tests Test 10/24/16 21:15 White Blood Count 7.4 TH/MM3 Red Blood Count 3.75 MIL/MM3 Hemoglobin 11.8 GM/DL Hematocrit 35.3 % Mean Corpuscular Volume 94.0 FL Mean Corpuscular Hemoglobin 31.6 PG Mean Corpuscular Hemoglobin Concent 33.6 % Red Cell Distribution Width 15.2 % Platelet Count 198 TH/MM3 Mean Platelet Volume 8.2 FL Neutrophils (%) (Auto) 72.9 % Lymphocytes (%) (Auto) 19.4 % Monocytes (%) (Auto) 5.3 % Eosinophils (%) (Auto) 1.8 % Basophils (%) (Auto) 0.6 % Neutrophils # (Auto) 5.5 TH/MM3 Lymphocytes # (Auto) 1.4 TH/MM3 Monocytes # (Auto) 0.4 TH/MM3 Eosinophils # (Auto) 0.1 TH/MM3 Basophils # (Auto) 0.0 TH/MM3 CBC Comment DIFF FINAL Differential Comment Prothrombin Time 26.9 SEC Prothromb Time International Ratio 2.3 RATIO Activated Partial Thromboplast Time 33.4 SEC Blood Urea Nitrogen 20 MG/DL Creatinine 0.88 MG/DL Random Glucose 129 MG/DL Total Protein 7.1 GM/DL Albumin 3.2 GM/DL Calcium Level 8.2 MG/DL Alkaline Phosphatase 107 U/L Aspartate Amino Transf (AST/SGOT) 29 U/L Alanine Aminotransferase (ALT/SGPT) 23 U/L Total Bilirubin 0.3 MG/DL Sodium Level 138 MEQ/L Potassium Level 3.9 MEQ/L Chloride Level 102 MEQ/L Carbon Dioxide Level 28.9 MEQ/L Anion Gap 7 MEQ/L Estimat Glomerular Filtration Rate 61 ML/MIN Total Creatine Kinase 95 U/L Troponin I 0.05 NG/ML B-Type Natriuretic Peptide 515 PG/ML MDM Medical Decision Making Medical Screen Exam Complete: Yes Emergency Medical Condition: Yes Interpretation(s) Last Impressions Chest X-Ray 10/24/162110 Signed Impressions: Service Date/Time: Monday, October 24, 2016 21:27 - CONCLUSION: 1. Cardiomegaly with mild basilar atelectasis. No pneumothorax or significant effusion. Donald Moreno MD 22:13 PM. CBC within normal limit. BUN 20. BNP 515. INR 2.3. Differential Diagnosis Differential diagnosis including URI, acute exacerbation CHF, bronchitis, pneumonia, PE, pneumothorax, [place]. Narrative Course 85-year-old female with shortness of breath. History of CHF. Diagnosis Primary Impression: Dyspnea Qualified Codes: R06.00 - Dyspnea, unspecified Additional Impression: History of chronic CHF Patient Instructions: General Instructions Additional Instructions: Advised patient to continue all medications. Follow-up with personal physician. Return if worse. Med/Other Pt SpecificInfo: No Change to Meds Disposition: 01 DISCHARGE HOME Condition: Stable Clovis Dumas MD Oct 24, 2016 21:16
[2016-10-24 21:36] LABS: AUTOMATED NEUTROPHIL # 5.5 TH/MM3 (1.8-7.7); BASOPHIL % 0.6 % (0.0-2.0); EOSINOPHIL # 0.1 TH/MM3 (0-0.4); EOSINOPHIL % 1.8 % (0.0-4.0); HEMATOCRIT 35.3 % (35.0-46.0); HEMO FLAGS DIFF FINAL; LYMPH % 19.4 % (9.0-44.0); LYMPHOCYTE # 1.4 TH/MM3 (1.0-4.8); MEAN CORPUSCULAR HEMOGLOBIN 31.6 PG (27.0-34.0); MEAN CORPUSCULAR HGB CONC 33.6 % (32.0-36.0); MONO % 5.3 % (0.0-8.0); NEUT % 72.9 % (16.0-70.0); PLATELET COUNT 198 TH/MM3 (150-450); RED BLOOD COUNT 3.75 MIL/MM3 (4.00-5.30); RED CELL DISTRIBUTION WIDTH 15.2 % (11.6-17.2); WHITE BLOOD COUNT 7.4 TH/MM3 (4.0-11.0)
[2016-10-24 21:42] LABS: CHLORIDE 102 MEQ/L (98-107); POTASSIUM 3.9 MEQ/L (3.5-5.1); SODIUM (NA) 138 MEQ/L (136-145)
--- NOTE | 2016-10-24 21:42 | RADRPT ---
EXAM DATE/TIME: 10/24/2016 21:27 [facility] COMPARISON: CHEST SINGLE AP, June 12, 2016, 1:14. INDICATIONS : Shortness of breath. MEDICAL HISTORY : Diabetes mellitus type 2. Hypertension. Congestive heart failure. SC SURGICAL HISTORY : Appendectomy. Hysterectomy. Tonsillectomy. Katty rectal ca with resection, Brachial artery PCTA ENCOUNTER: Initial ACUITY: 1 day PAIN SCORE: 0/10 LOCATION: Bilateral chest FINDINGS: A single view of the chest demonstrates the lungs to be symmetrically aerated without evidence of mas s, infiltrate or effusion. Minimal basilar atelectasis. No significant effusion. No pneumothorax. Mil d cardiomegaly. CONCLUSION: 1. Cardiomegaly with mild basilar atelectasis. No pneumothorax or significant effusion. Donald Moreno MD on October 24, 2016 at 21:39 Board Certified Radiologist. This report was verified electronically.
[2016-10-24 21:47] LABS: ANION GAP 7 MEQ/L (5-15); APTT (PATIENT) 33.4 SEC (24.3-30.1); BICARBONATE 28.9 MEQ/L (21.0-32.0); BLOOD UREA NITROGEN 20 MG/DL (7-18); INTERNATIONAL NORMALIZED RATIO 2.3 RATIO; PROTHROMBIN TIME - PATIENT 26.9 SEC (9.8-11.6)
[2016-10-24 21:50] LABS: ALT (GPT) 23 U/L (10-53); AST (GOT) 29 U/L (15-37); GLOMERULAR FILTRATION RATE 61 ML/MIN (>89)
[2016-10-24 21:51] LABS: TOTAL BILIRUBIN ADULT 0.3 MG/DL (0.2-1.0)
[2016-10-24 21:53] LABS: ALKALINE PHOSPHATASE 107 U/L (45-117)
[2016-10-24 21:54] LABS: CREATINE KINASE 95 U/L (26-192)
[2016-10-24 22:05] VITALS: BP 128/75; PULSE 78; RESP 16; O2SAT 100
[2016-10-24] MEDS ORDERED: ASPI325T PO (22:26)
[2016-10-24] MEDS ORDERED: MECL-62 PO (22:28)
[2016-10-24] MEDS ORDERED: SPIR25TA PO (22:28)
[2016-10-24 22:43] VITALS: BP 145/96; TEMP 98.4
--- NOTE | 2016-10-25 13:34 | EKG ---
Date Performed: 10/24/2016 Time Performed: 21:20:59 PTAGE: 85 years EKG: Atrial flutter MARKED LEFT AXIS DEVIATION MODERATE INTRAVENTRICULAR CONDUCTION DELAY MODERA TE ST DEPRESSION ABNORMAL ECG PREVIOUS TRACING : 06/11/2016 23.51 Since prior tracing, atrial flutter has replaced Sinus rhyt hm . DOCTOR: Vignesh Perez Interpretating Date/Time 10/25/2016 13:32:40
== END 2016-10-24 22:56 | disposition home or self-care (01) ==
LOC: PHED 20:06
DX: R06.00 Dyspnea, unspecified (principal); R94.31 Abnormal electrocardiogram [ECG] [EKG]; I11.0 Hypertensive heart disease with heart failure
CPT/HCPCS: 71010; 80053; 82550; 83880; 84484; 85025; 85610; 85730; 93005; 99285

== ENCOUNTER 2017-05-05 20:52 | Observation (INO) | payer MEDICARE, OTHER ==
[~2017-05-05] VITALS: Ht 162.6 cm; Wt 85.0 kg
[~2017-05-05 20:52] MED LIST changes: +ASPI-183 PO; -ASPI1TAB69 PO; -CARB50TA3 PO; -CYCL1TAB29 PO; -HYDR-3516 PO; -LACTCAP8 PO; -LISI10TA3 PO; +MECL-62 PO; -OMEP40CA2 PO; -OXYB5TAB10 PO; +SPIR25TA PO; -XARE15TA PO; -XARE20TA PO
[2017-05-05 22:06] VITALS: BP 146/86; PULSE 79; RESP 20; TEMP 98.5; O2SAT 100; O2SAT 99
--- NOTE | 2017-05-05 22:32 | PD ---
HPI Chief Complaint: Respiratory Symptoms Time Seen by Provider: 22:27 Travel History International Travel<30 days: No Contact w/Intl Traveler<30days: No Traveled to known affect area: No History of Present Illness HPI The patient is an 86 year old female who presents to the [facility] emergency department with a history of shortness of breath with exertion that worsened 2 days ago. She has also noticed some swelling of the right leg. She reports a history of having a blood clot in her left arm in the past. right leg had sensitive skin that she noticed earlier today. She has had redness to the right leg for the last 2 days. She has abrasions to both knees and legs from falls when she sleep walks. She normally gets around with a walker. She denies having any chest pain or chest pressure. She denies having any cough or congestion. She denies having any known fevers or chills. She denies having any recent abdominal pain, vomiting, or diarrhea. She reports that she does have problems with constipation, however she did last move her bowels earlier today. Otherwise on review of systems she denies having any neck pain, urinary symptoms, or neurologic symptoms. [facility] Past Medical History Narrative Medical The patient's past medical history is significant for atrial fibrillation, diabetes mellitus, hypertension, history of coronary artery disease, history of congestive heart failure, history of perirectal cancer status post resection, history of a blood clot involving her left arm. Arthritis: Yes Asthma: Yes Atrial Fibrillation: Yes Anxiety: Yes Depression: Yes Heart Rhythm Problems: Yes (a- fib) Cancer: No High Cholesterol: Yes Chest Pain: No Congestive Heart Failure: Yes COPD: No Cerebrovascular Accident: Yes (5 years ago) Diabetes: Yes Patient Takes Glucophage: Yes Endocrine: Yes Gastrointestinal Disorders: Yes Genitourinary: No Headaches: Yes Hypertension: Yes Immune Disorder: No Implanted Vascular Access Dvce: No Insomnia: Yes Musculoskeletal: Yes (restless leg syndrome) Neurologic: Yes Psychiatric: Yes Reproductive: No Respiratory: Yes Immunizations Current: Yes Migraines: No Seizures: No Sleep Apnea: Yes Thyroid Disease: No Ulcer: Yes Tetanus Vaccination: Unknown Influenza Vaccination: Yes Past Surgical History Narrative Surgical The patient's past surgical history is significant for perirectal cancer resection, tonsillectomy, appendectomy, cholecystectomy. Abdominal Surgery: Yes (gallbladder/ appdenix/ colon removal) Appendectomy: Yes Cholecystectomy: Yes Endocrine Surgery: Yes (tonsills) Tonsillectomy: Yes Other Surgery: Yes Social History Alcohol Use: No Tobacco Use: No Substance Use: No Allergies-Medications (Allergen,Severity, Reaction): Coded Allergies: Sulfa (Sulfonamide Antibiotics) (Unverified Allergy, Mild, 05/06/17) Reported Meds & Prescriptions Reported Meds & Active Scripts Active Reported Warfarin 3 Mg Tab 3 Mg PO DAILY Warfarin 1 Mg Tab 1 Mg PO DAILY Spironolactone 25 Mg Tab 25 Mg PO DAILY Ranitidine (Ranitidine HCl) 150 Mg Cap 150 Mg PO DAILY Omeprazole 20 Mg Tab 20 Mg PO DAILY Metoprolol Tartrate 25 Mg Tab 25 Mg PO BID Lorazepam 0.5 Mg Tab 0.5 Mg PO HS PRN Lisinopril 10 Mg Tab 10 Mg PO DAILY Furosemide 40 Mg Tab 40 Mg PO DAILY Fludrocortisone (Fludrocortisone Acetate) 0.1 Mg Tab 0.1 Mg PO DAILY Ferrous Sulfate 325 Mg (65 Mg Iron) Tablet 325 Mg PO DAILY Requip (Ropinirole) 4 Mg Tab 2 Mg PO TID Trazodone (Trazodone HCl) 50 Mg Tab 50 Mg PO HS Lovastatin 20 Mg Tab 20 Mg PO HS Potassium Chloride Microencaps 10 Meq Tab 10 Meq PO BID Gabapentin 300 Mg Cap 400 Mg PO TID Zafirlukast 20 Mg Tab 20 Mg PO BID Review of Systems Except as stated in HPI: all other systems reviewed are Neg General / Constitutional: No: Fever Eyes: No: Visual changes HENT: No: Headaches, Congestion Cardiovascular: No: Chest Pain or Discomfort Respiratory: Positive: Shortness of Breath, No: Cough Gastrointestinal: No: Nausea, Vomiting, Diarrhea, Abdominal Pain Genitourinary: No: Dysuria Musculoskeletal: No: Pain Skin: Positive Rash Neurologic: No: Weakness Psychiatric: No: Depression Endocrine: No: Polydipsia Hematologic/Lymphatic: No: Easy Bruising Physical Exam Narrative General: The patient is a well-developed well-nourished female in no acute distress. Head and Neck exam: Head is normocephalic atraumatic. Eyes: EOMI, pupils are equal round and reactive to light. Nose: Midline septum with pink mucous membranes Mouth: Dentition unremarkable. Moist mucus membranes. Posterior oropharynx is not erythematous. No tonsillar hypertrophy. Uvula midline. Airway patent. Neck: No palpable lymphadenopathy. No nuchal rigidity. No thyromegaly. Cardiovascular: Irregularly irregular consistent with her history of atrial fibrillation with rate control and without murmurs, gallops, or rubs. Lungs: Decreased breath sounds in the left lower lung base, no other wheezes, rhonchi, or crackles. No accessory muscle use. No tripoding. No paroxysmal abdominal breathing. No conversational dyspnea. Abdomen: Soft, without tenderness to palpation in all 4 quadrants of the abdomen. No guarding, rebound, or rigidity. Normal bowel sounds are audible. No tenderness on palpation of McBurney's point. Negative Nathan sign. Extremities: No clubbing or cyanosis. The patient has edema in the right leg that is 1+ compared to the left. The patient has 1+ pulses in bilateral lower extremities , 2+ bilateral upper extremities. Patient has erythema to the skin of the right lower extremity from the knee to the ankle which she reports is new. She also has erythema to the medial aspect of the left leg. The patient has abrasions that are worse on the right anterior leg compared to the left. She is unsure when these abrasions were acquired. 2+ pulses in all 4 extremities. Back: No spinous process tenderness to palpation. No costovertebral angle tenderness to palpation. Neurologic Exam: Grossly nonfocal. Skin Exam: No rash noted. Intact skin that is warm and dry. Data Data Last Documented VS Vital Signs Date Time Temp Pulse Resp B/P (MAP) Pulse Ox O2 Delivery O2 Flow Rate FiO2 05/05/17 23:22 98.3 79 18 132/74 (93) 98 Room Air Orders Orders Electrocardiogram (05/05/17 22:29) Complete Blood Count With Diff (05/05/17 22:29) Comprehensive Metabolic Panel (05/05/17 22:29) Creatine Kinase (Cpk) (05/05/17 22:29) Ckmb (Isoenzyme) Profile (05/05/17 22:29) Troponin I (05/05/17:29) B-Type Natriuretic Peptide (05/05/17 22:29) Prothrombin Time / Inr (Pt) (05/05/17 22:29) Act Partial Throm Time (Ptt) (05/05/17 22:29) Urinalysis - C+S If Indicated (05/05/17 22:29) Magnesium (Mg) (05/05/17 22:29) Chest, Single Ap (05/05/17 22:29) Iv Access Insert/Monitor (05/05/17 22:29) Ecg Monitoring (05/05/17 22:29) Oximetry (05/05/17 22:29) Blood Culture (05/05/17 22:46) Lactic Acid Sepsis Protocol (05/05/17 22:46) Ct Pulmonary Angiogram (05/05/17 23:14) Cefepime Inj (Maxipime Inj) (05/05/17 23:15) Vancomycin Inj (Vancomycin Inj) (05/05/17 23:15) Urine Culture (05/05/17 23:20) Aspirin Chew (Aspirin Chew) (05/06/17 00:15) Nitroglycerin 2% Oint (Nitroglycerin 2% (05/06/17 00:15) Iohexol 350 Inj (Omnipaque 350 Inj) (05/06/17 00:38) Admit Order (Ed Use Only) (05/06/17 01:00) Labs Laboratory Tests Test 05/05/17 22:44 05/05/17 23:20 White Blood Count 5.7 TH/MM3 Red Blood Count 3.89 MIL/MM3 Hemoglobin 12.8 GM/DL Hematocrit 38.2 % Mean Corpuscular Volume 98.2 FL Mean Corpuscular Hemoglobin 32.8 PG Mean Corpuscular Hemoglobin Concent 33.4 % Red Cell Distribution Width 18.4 % Platelet Count 204 TH/MM3 Mean Platelet Volume 7.9 FL Neutrophils (%) (Auto) 73.6 % Lymphocytes (%) (Auto) 17.0 % Monocytes (%) (Auto) 7.5 % Eosinophils (%) (Auto) 1.6 % Basophils (%) (Auto) 0.3 % Neutrophils # (Auto) 4.2 TH/MM3 Lymphocytes # (Auto) 1.0 TH/MM3 Monocytes # (Auto) 0.4 TH/MM3 Eosinophils # (Auto) 0.1 TH/MM3 Basophils # (Auto) 0.0 TH/MM3 CBC Comment DIFF FINAL Differential Comment Prothrombin Time 36.8 SEC Prothromb Time International Ratio 3.7 RATIO Activated Partial Thromboplast Time 47.4 SEC Blood Urea Nitrogen 18 MG/DL Creatinine 1.07 MG/DL Random Glucose 146 MG/DL Total Protein 7.2 GM/DL Albumin 3.2 GM/DL Calcium Level 8.9 MG/DL Magnesium Level 2.0 MG/DL Alkaline Phosphatase 115 U/L Aspartate Amino Transf (AST/SGOT) 19 U/L Alanine Aminotransferase (ALT/SGPT) 22 U/L Total Bilirubin 0.6 MG/DL Sodium Level 137 MEQ/L Potassium Level 4.1 MEQ/L Chloride Level 99 MEQ/L Carbon Dioxide Level 28.8 MEQ/L Anion Gap 9 MEQ/L Estimat Glomerular Filtration Rate 49 ML/MIN Lactic Acid Level 1.2 mmol/L Total Creatine Kinase 89 U/L Troponin I 0.46 NG/ML B-Type Natriuretic Peptide 347 PG/ML Urine Color YELLOW Urine Turbidity CLEAR Urine pH 6.5 Urine Specific [place] 1.016 Urine Protein TRACE mg/dL Urine Glucose (UA) TRACE mg/dL Urine Ketones NEG mg/dL Urine Occult Blood NEG Urine Nitrite NEG Urine Bilirubin NEG Urine Urobilinogen 4.0 MG/DL Urine Leukocyte Esterase SMALL Urine RBC 1 /hpf Urine WBC 8 /hpf Urine Squamous Epithelial Cells 2 /hpf Urine Bacteria MANY /hpf Urine Hyaline Casts 1 /lpf Urine Mucus FEW /lpf Microscopic Urinalysis Comment CULTURE INDICATED MDM Medical Decision Making Medical Screen Exam Complete: Yes Emergency Medical Condition: Yes Medical Record Reviewed: Yes Interpretation(s) Last Impressions CT Angiography 05/05/172313 Signed Impressions: Service Date/Time: Saturday, May 06, 2017 00:24 - CONCLUSION: The study is negative for pulmonary embolism. Momo Lopez MD Chest X-Ray 05/05/173 Signed Impressions: Service Date/Time: Friday, May 05, 2017 22:43 - CONCLUSION: 1. Patchy area of consolidation in the medial right lower lung. 2. Stable cardiomegaly and bibasilar atelectasis/scarring. Momo Lopez MD Differential Diagnosis Anginal equivalent, versus unstable angina, versus myocardial infarction, versus congestive heart failure, versus pulmonary embolism, versus pneumonia, versus pleural effusion Narrative Course During the course of the patient's emergency department visit, the patient's history, examination, and differential diagnosis were reviewed with the patient. The patient was placed on a monitor worker with oximetry and frequent blood pressure monitoring. The patient had IV access obtained and blood work sent for analysis. The patient had a EKG done on arrival that shows what appears to be atrial flutter heart rate of 79, QRS duration 116 ms, QTC 456 ms. The patient was initially provided broad-spectrum antibiotic coverage to include cefepime and vancomycin due to concerns for sepsis and multiple sources of infection including sialitis of her extremity, urinary tract infection on urinalysis, and infiltrate on chest x-ray. Given the patient's elevated troponin the patient was given aspirin 162 mg p.o. 1, nitroglycerin 1 inch the chest wall. The patient's studies were reviewed and remarkable for a white count of 5.7, hemoglobin 12.8, platelets 204 was 73.6 neutrophils. CMP is remarkable for a creatinine of 1.07, glucose 146, CPK 89, however troponin I is elevated at 0.46 , BNP is 347, albumin 3.2. PT 36.8, INR 3.7, PTT 47.4. Urinalysis shows 4 urobilinogen, leukocyte esterase is small, 8 WBCs, many bacteria, culture indicated. A chest x-ray that shows patchy area of consolidation in the medial right lower. Stable cardiomegaly. CTA to rule out PE showed no evidence of pulmonary embolism. The patient's results were discussed with the patient, including the plan of care. I explained that further testing and/ or monitoring is indicated based on the patient's history, examination, and/ or laboratory findings. Therefore, I recommended admission for additional evaluation. The patient expressed understanding and was agreeable with this plan. The patient was admitted to the hospital in stable condition and sent to a bed under the care of the [facility] service. Physician Communication Physician Communication The patient's case including history, pertinent physical examination findings, and laboratory studies were discussed with Dr. Brown. It was agreed that the patient would be admitted to the [facility] service. Diagnosis Primary Impression: Shortness of breath Additional Impressions: Elevated troponin I level Cellulitis of leg, right Urinary tract infection Qualified Codes: N39.0 - Urinary tract infection, site not specified Admitting Information Admitting Physician Requests: it Layne Del Cid MD May 05, 2017 22:32
[2017-05-05 23:05] LABS: AUTOMATED NEUTROPHIL # 4.2 TH/MM3 (1.8-7.7); BASOPHIL % 0.3 % (0.0-2.0); EOSINOPHIL # 0.1 TH/MM3 (0-0.4); EOSINOPHIL % 1.6 % (0.0-4.0); HEMATOCRIT 38.2 % (35.0-46.0); HEMOGLOBIN 12.8 GM/DL (11.6-15.3); MEAN CELL VOLUME 98.2 FL (80.0-100.0); MEAN CORPUSCULAR HEMOGLOBIN 32.8 PG (27.0-34.0); MEAN CORPUSCULAR HGB CONC 33.4 % (32.0-36.0); MEAN PLATELET VOLUME 7.9 FL (7.0-11.0); MONO % 7.5 % (0.0-8.0); MONOCYTE # 0.4 TH/MM3 (0-0.9); NEUT % 73.6 % (16.0-70.0); PLATELET COUNT 204 TH/MM3 (150-450); RED BLOOD COUNT 3.89 MIL/MM3 (4.00-5.30); RED CELL DISTRIBUTION WIDTH 18.4 % (11.6-17.2); WHITE BLOOD COUNT 5.7 TH/MM3 (4.0-11.0)
--- NOTE | 2017-05-05 23:12 | RADRPT ---
EXAM DATE/TIME: 05/05/2017 22:43 [facility] COMPARISON: CHEST SINGLE AP, June 12, 2016, 1:14. CHEST SINGLE AP, October 24, 2016, 21:27. INDICATIONS : Short of breath. MEDICAL HISTORY : Diabetes mellitus type 2. Hypertension. Congestive heart failure. MD SURGICAL HISTORY : Appendectomy. Hysterectomy. Tonsillectomy. Katty rectal ca with resection Brachial artery PCTA, ENCOUNTER: Initial ACUITY: 1 day PAIN SCORE: 0/10 LOCATION: Bilateral chest FINDINGS: Cardiomegaly similar to prior. There is an oval opacity in the right infrahilar retrocardiac lung wh ich appears to be new when compared to prior and contained some air bronchograms. Areas of bibasilar linear atelectasis similar to prior. No consolidative infiltrates. Both hemidiaphragms remain loca julia. Chronic deformity left shoulder. CONCLUSION: 1. Patchy area of consolidation in the medial right lower lung. 2. Stable cardiomegaly and bibasilar atelectasis/scarring. Momo Lopez MD on May 05, 2017 at 23:09 Board Certified Radiologist. This report was verified electronically.
[2017-05-05] MEDS ORDERED: VANCOMYCIN INJ 1,000 MG in SODIUM CHLOR 0.9% 250 ML INJ 250 ML IV ONE (23:15)
[2017-05-05] MEDS ORDERED: CEFEPIME INJ 2,000 MG in SODIUM CHLORIDE 0.9% INJ 100 ML IV ONE (23:15)
[2017-05-05 23:16] LABS: INTERNATIONAL NORMALIZED RATIO 3.7 RATIO; PROTHROMBIN TIME - PATIENT 36.8 SEC (9.8-11.6)
[2017-05-05 23:22] VITALS: BP 132/74; PULSE 79; RESP 18; TEMP 98.3; O2SAT 98
[2017-05-05 23:24] LABS: ALBUMIN 3.2 GM/DL (3.4-5.0); AST (GOT) 19 U/L (15-37); BICARBONATE 28.8 MEQ/L (21.0-32.0); BLOOD UREA NITROGEN 18 MG/DL (7-18); CALCIUM 8.9 MG/DL (8.5-10.1); CHLORIDE 99 MEQ/L (98-107); CREATININE 1.07 MG/DL (0.50-1.00); GLOMERULAR FILTRATION RATE 49 ML/MIN (>89); GLUCOSE,RANDOM 146 MG/DL (74-106); SODIUM (NA) 137 MEQ/L (136-145)
[2017-05-05 23:29] LABS: ALKALINE PHOSPHATASE 115 U/L (45-117); ALT (GPT) 22 U/L (10-53); TOTAL BILIRUBIN ADULT 0.6 MG/DL (0.2-1.0); TOTAL PROTEIN 7.2 GM/DL (6.4-8.2); TROPONIN I 0.46 NG/ML (0.02-0.05)
[2017-05-05 23:54] LABS: BACTERIA, URINE MANY /hpf; BILIRUBIN, URINE NEG (NEG); BLOOD, URINE NEG (NEG); GLUCOSE,URINE TRACE mg/dL (NEG); HYALINE CAST, URINE 1 /lpf (RARE); KETONE, URINE NEG (NEG); MUCUS URINE FEW /lpf (OCC); NITRITE,URINE NEG (NEG); PH, URINE 6.5 (5.0-8.5); SQUAMOUS EPITHELIAL CELL URINE 2 /hpf (0-5); URINE COLOR YELLOW (YELLW/STRAW); URINE LEUKOCYTE ESTERASE SMALL (NEG)
[2017-05-06] VITALS (7 sets, daily range): BP systolic 122–161; BP diastolic 58–85; PULSE 82–111; RESP 12–26; TEMP 97.8–98.5; O2SAT 96–100
[2017-05-06] MEDS ORDERED: NITROGLYCERIN 2% OINT 1 GM PACKET TOPICAL ONE (00:15)
[2017-05-06] MEDS ORDERED: ASPIRIN 81 MG CHEW TAB CHEW ONE (00:15)
[2017-05-06] MEDS ORDERED: IOHEXOL 350 MG/ML 10 ML VIAL (for RAD DIAG) IVCONTRAST ONE (00:38)
--- NOTE | 2017-05-06 00:55 | RADRPT ---
EXAM DATE/TIME: 05/06/2017 00:24 [facility] COMPARISON: No previous studies available for comparison. INDICATIONS : Shortness of breath. IV CONTRAST: 75 cc Omnipaque 350 (iohexol) IV RADIATION DOSE: 10.41 CTDIvol (mGy) MEDICAL HISTORY : Myocardial infarction. Hypertension. Congestive heart failure. SURGICAL HISTORY : None. ENCOUNTER: Initial ACUITY: 3 days PAIN SCALE: 0/10 LOCATION: chest TECHNIQUE: Volumetric scanning of the chest was performed using a pulmonary embolism protocol MIP images were re constructed. Using automated exposure control and adjustment of the mA and/or kV according to patien t size, radiation dose was kept as low as reasonably achievable to obtain optimal diagnostic quality images. DICOM format image data is available electronically for review and comparison. Follow-up recommendations for detected pulmonary nodules are based at a minimum on nodule size and pa tient risk factors according to Fleischner Society Guidelines. FINDINGS: PULMONARY ARTERIES: No filling defects are seen in the pulmonary arteries through the segmental level. LUNGS: There is no consolidation or pneumothorax . No concerning pulmonary nodule is visualized. Mild biba silar atelectasis. PLEURAE: There is no pleural thickening or pleural effusion. MEDIASTINUM: There is good visualization of the great vessels of the middle mediastinum. No evidence of mediastin al or hilar adenopathy/mass. CONCLUSION: The study is negative for pulmonary embolism. Momo Lopez MD on May 06, 2017 at 0:52 Board Certified Radiologist. This report was verified electronically.
[2017-05-06] MEDS ORDERED: FURO40TA PO (01:44)
[2017-05-06] MEDS ORDERED: LISI10TA3 PO (01:44)
[2017-05-06] MEDS ORDERED: RANI150C PO (01:44)
[2017-05-06] MEDS ORDERED: LORA0.5T PO (01:44)
[2017-05-06] MEDS ORDERED: WARF-58 PO (01:44)
[2017-05-06] MEDS ORDERED: SPIR25TA PO (01:44)
[2017-05-06] MEDS ORDERED: WARF4TAB52 PO (01:44)
[2017-05-06] MEDS ORDERED: OMEP20TA93 PO (01:44)
[2017-05-06] MEDS ORDERED: METO25TA3 PO (01:44)
[2017-05-06] MEDS ORDERED: FLUD.1 PO (01:44)
[2017-05-06] MEDS ORDERED: FERR325T18 PO (01:44)
[2017-05-06] MEDS ORDERED: NALOXONE HCL 0.4 MG/ML AMP IV PUSH PRN (02:15)
[2017-05-06] MEDS ORDERED: SODIUM CHLORIDE 0.9% FLUSH 10 ML FLUSH IV FLUSH PRN (02:15)
[2017-05-06] MEDS ORDERED: cefTRIAXone INJ 1,000 MG in SODIUM CHLORIDE 0.9% INJ 100 ML IV SCH (09:00)
[2017-05-06] MEDS: SODIUM CHLORIDE 0.9% FLUSH 10 ML FLUSH IV FLUSH SCH ×2 (10:07→22:00)
[2017-05-06 12:49] LABS: TROPONIN I 0.25 NG/ML (0.02-0.05)
[2017-05-06] MEDS ORDERED: DEXTROSE 50% IN WATER 50 ML VIAL(D50) IV PUSH PRN (13:15)
[2017-05-06] MEDS ORDERED: LORazepam 0.5 MG TAB PO PRN (13:15)
[2017-05-06] MEDS ORDERED: GLUCAGON 1 MG/ML VIAL OTHER PRN (13:15)
--- NOTE | 2017-05-06 13:18 | HHI.HP ---
[facility] Ashley Crook D.O. Admission Diagnosis Cellulitis, UTI, elevated Troponin Diagnoses: Chief Complaint: SOB, right leg swelling Travel History International Travel<30 Days: No Contact w/Intl Traveler <30 Da: No Traveled to Known Affected Are: No History of Present Illness Written by Ashlee Rajput, acting as scribe for Dr. Farrell on 05/06/17 at 13:12. 86-year-old female with history of atrial fibrillation on Coumadin, diabetes, hypertension, CAD, CHF, perirectal cancer s/p resection, DVT left arm, presents from [facility] with 2 days of worsening shortness of breath and right leg swelling. She reports dyspnea on exertion and recent cough productive of clear sputum. She reports a recent fall with abrasions to the knees while she was sleep walking. She states otherwise she ambulates well with a walker. She has erythema and edema to the right leg which is new for her. Denies any open wounds /drainage. She admits to recent deconditioning and more sedentary lifestyle because of the recent shortness of breath. Denies any fevers/chills, lightheadedness, dizziness, chest pain/pressure, palpitations, abdominal pain, nausea/vomiting, diarrhea, or urinary complaints. She does report chronic constipation and believes her last BM was 1-2 days ago. She has no other medical complaints at this time. Review of Systems Except as stated in HPI: all other systems reviewed are Neg Past Family Social History Past Medical History atrial fibrillation on Coumadin diabetes hypertension hyperlipidemia CAD CHF perirectal cancer s/p resection DVT left arm Past Surgical History perirectal cancer resection tonsillectomy appendectomy cholecystectomy Reported Medications Warfarin 3 Mg Tab 3 Mg PO DAILY Warfarin 1 Mg Tab 1 Mg PO DAILY Spironolactone 25 Mg Tab 25 Mg PO DAILY Ranitidine (Ranitidine HCl) 150 Mg Cap 150 Mg PO DAILY Omeprazole 20 Mg Tab 20 Mg PO DAILY Metoprolol Tartrate 25 Mg Tab 25 Mg PO BID Lorazepam 0.5 Mg Tab 0.5 Mg PO HS PRN Lisinopril 10 Mg Tab 10 Mg PO DAILY Furosemide 40 Mg Tab 40 Mg PO DAILY Fludrocortisone (Fludrocortisone Acetate) 0.1 Mg Tab 0.1 Mg PO DAILY Ferrous Sulfate 325 Mg (65 Mg Iron) Tablet 325 Mg PO DAILY Requip (Ropinirole) 4 Mg Tab 2 Mg PO TID Trazodone (Trazodone HCl) 50 Mg Tab 50 Mg PO HS Lovastatin 20 Mg Tab 20 Mg PO HS Potassium Chloride Microencaps 10 Meq Tab 10 Meq PO BID Gabapentin 300 Mg Cap 400 Mg PO TID Zafirlukast 20 Mg Tab 20 Mg PO BID Allergies: Coded Allergies: Sulfa (Sulfonamide Antibiotics) (Unverified Allergy, Mild, 05/06/17) Active Ordered Medications Current Medications Medications (Trade) Dose Ordered Sig/Alex Route Start Time Stop Time Status Last Admin (NS Flush) 2 ml UNSCH PRN IV FLUSH 05/06/17 02:15 (NS Flush) 2 ml BID IV FLUSH 05/06/17 09:00 05/06/17 10:07 (Narcan Inj) 0.4 mg UNSCH PRN IV PUSH 05/06/17 02:15 Ceftriaxone Sodium 1000 mg/ Sodium Chloride 100 ml @ 200 mls/hr Q24H IV 05/06/17 09:00 05/06/17 10:07 Family History Father age 86 "natural causes", but did have PAD and amputation, no diabetes Mother killed in motor vehicle accident age 79 Social History Denies any tobacco, alcohol, or illicit drug use. Physical Exam Vital Signs Vital Signs Date Time Temp Pulse Resp B/P (MAP) Pulse Ox O2 Delivery O2 Flow Rate FiO2 05/06/17 09:51 98.4 92 24 135/62 (86) 97 Room Air 05/06/17 03:45 98.1 87 12 122/58 (79) 98 Room Air 05/05/17 23:22 98.3 79 18 132/74 (93) 98 Room Air 05/05/17 22:06 98.5 79 20 146/86 (106) 99 Physical Exam GENERAL: Well-nourished, well-developed elderly female patient in [facility]. SKIN: Warm and dry. No rash. HEAD: Normocephalic. Atraumatic. EYES: Pupils equal and round. No scleral icterus. No injection or drainage. ENT: No nasal bleeding or discharge. Mucous membranes pink and moist. NECK: Supple. Trachea midline. CARDIOVASCULAR: Irregular rate and rhythm. S1, S2 noted. No murmur appreciated. RESPIRATORY: No accessory muscle use. Decreased breath sounds at left base, otherwise clear to auscultation. Breath sounds equal bilaterally. GASTROINTESTINAL: Abdomen soft, non-tender, nondistended. Normoactive bowel sounds x4. MUSCULOSKELETAL: No obvious deformities. RLE with 1+ edema and erythema that extends from the distal knee to the ankle, with diffuse scabs but no drainage. LLE with trace edema, no significant erythema. Diffuse abrasions to bilateral anterior knees, much worse on the right. NEUROLOGICAL: Awake and alert. No obvious cranial nerve deficits. Motor grossly within normal limits. 5/5 muscle strength in bilateral upper and lower extremities. Normal speech. PSYCHIATRIC: Appropriate mood and affect; insight and judgment normal. Laboratory Laboratory Tests Test 05/05/17 22:44 05/05/17 23:20 05/06/17 12:10 White Blood Count 5.7 Red Blood Count 3.89 Hemoglobin 12.8 Hematocrit 38.2 Mean Corpuscular Volume 98.2 Mean Corpuscular Hemoglobin 32.8 Mean Corpuscular Hemoglobin Concent 33.4 Red Cell Distribution Width 18.4 Platelet Count 204 Mean Platelet Volume 7.9 Neutrophils (%) (Auto) 73.6 Lymphocytes (%) (Auto) 17.0 Monocytes (%) (Auto) 7.5 Eosinophils (%) (Auto) 1.6 Basophils (%) (Auto) 0.3 Neutrophils # (Auto) 4.2 Lymphocytes # (Auto) 1.0 Monocytes # (Auto) 0.4 Eosinophils # (Auto) 0.1 Basophils # (Auto) 0.0 CBC Comment DIFF FINAL Differential Comment Prothrombin Time 36.8 Prothromb Time International Ratio 3.7 Activated Partial Thromboplast Time 47.4 Blood Urea Nitrogen 18 Creatinine 1.07 Random Glucose 146 Total Protein 7.2 Albumin 3.2 Calcium Level 8.9 Magnesium Level 2.0 Alkaline Phosphatase 115 Aspartate Amino Transf (AST/SGOT) 19 Alanine Aminotransferase (ALT/SGPT) 22 Total Bilirubin 0.6 Sodium Level 137 Potassium Level 4.1 Chloride Level 99 Carbon Dioxide Level 28.8 Anion Gap 9 Estimat Glomerular Filtration Rate 49 Lactic Acid Level 1.2 Total Creatine Kinase 89 Troponin I 0.46 B-Type Natriuretic Peptide 347 Urine Color YELLOW Urine Turbidity CLEAR Urine pH 6.5 Urine Specific [place] 1.016 Urine Protein TRACE Urine Glucose (UA) TRACE Urine Ketones NEG Urine Occult Blood NEG Urine Nitrite NEG Urine Bilirubin NEG Urine Urobilinogen 4.0 Urine Leukocyte Esterase SMALL Urine RBC 1 Urine WBC 8 Urine Squamous Epithelial Cells 2 Urine Bacteria MANY Urine Hyaline Casts 1 Urine Mucus FEW Microscopic Urinalysis Comment CULTURE INDICATED Date/Time Source Procedure Growth Status 05/05/17 23:00 Blood Peripheral Aerobic Blood Culture - Preliminary NO GROWTH IN 1 DAY Resulted 05/05/17 23:00 Blood Peripheral Anaerobic Blood Culture - Preliminary NO GROWTH IN 1 DAY Resulted 05/05/17 23:20 Urine Random Urine Urine Culture - Preliminary Gram Negative Usman Resulted Result Diagram: 05/05/17 2244 05/05/17 [address] Angiography 05/05/174 Signed Impressions: Service Date/Time: Saturday, May 06, 2017 00:24 - CONCLUSION: The study is negative for pulmonary embolism. Momo Lopez MD Chest X-Ray 05/05/172228 Signed Impressions: Service Date/Time: Friday, May 05, 2017 22:43 - CONCLUSION: 1. Patchy area of consolidation in the medial right lower lung. 2. Stable cardiomegaly and bibasilar atelectasis/scarring. Momo Lopez MD Caprini VTE Risk Assessment Caprini VTE Risk Assessment: Mod/High Risk (score >= 2) Caprini Risk Assessment Model Point Value = 1 Point Value = 2 Point Value = 3 Point Value = 5 Age 41-60 Minor surgery BMI > 25 kg/m2 Swollen legs Varicose veins or History of unexplained or recurrent spontaneous Oral contraceptives or hormone replacement Sepsis (< 1 month) Serious lung disease, including pneumonia (< 1 month) Abnormal pulmonary function Acute myocardial infarction Congestive heart failure (< 1 month) History of inflammatory bowel disease Medical patient at bed rest Age 61-74 Arthroscopic surgery Major open surgery (> 45 min) Laparoscopic surgery (> 45 min) Malignancy Confined to bed (> 72 hours) Immobilizing plaster cast Central venous access Age >= 75 History of VTE Family history of VTE Factor V Leiden Prothrombin [id number] Lupus anticoagulant Anticardiolipin antibodies Elevated serum homocysteine Heparin-induced thrombocytopenia Other congenital or acquired thrombophilia Stroke (< 1 month) Elective arthroplasty Hip, pelvis, or leg fracture Acute spinal cord injury (< 1 month) Prophylaxis Regimen Total Risk Factor Score Risk Level Prophylaxis Regimen 0-1 Low Early ambulation 2 Moderate Order ONE of the following: *Sequential Compression Device (SCD) *Heparin 5000 units SQ BID 3-4 Higher Order ONE of the following medications: *Heparin 5000 units SQ TID *Enoxaparin/Lovenox 40 mg SQ daily (WT < 150 kg, CrCl > 30 mL/min) *Enoxaparin/Lovenox 30 mg SQ daily (WT < 150 kg, CrCl > 10-29 mL/min) *Enoxaparin/Lovenox 30 mg SQ BID (WT < 150 kg, CrCl > 30 mL/min) AND/OR *Sequential Compression Device (SCD) 5 or more Highest Order ONE of the following medications: *Heparin 5000 units SQ TID (Preferred with Epidurals) *Enoxaparin/Lovenox 40 mg SQ daily (WT < 150 kg, CrCl > 30 mL/min) *Enoxaparin/Lovenox 30 mg SQ daily (WT < 150 kg, CrCl > 10-29 mL/min) *Enoxaparin/Lovenox 30 mg SQ BID (WT < 150 kg, CrCl > 30 mL/min) AND *Sequential Compression Device (SCD) Assessment and Plan Assessment and Plan 86-year-old female with history of atrial fibrillation on Coumadin, diabetes, hypertension, CAD, CHF, perirectal cancer s/p resection, DVT left arm, presents with 2 days of worsening shortness of breath and right leg swelling. RLE Cellulitis: acute -unlikely DVT while on Coumadin with supratherapeutic INR 3.7 -blood cultures with no growth to date -s/p IV cefepime/vanco, will continue on IV levaquin (pharmacy to renally dose) -monitor for improvement -the patient does follow with back tender paper machine in [facility] Community Acquired Pneumonia: patient presented with shortness of breath -CXR images reviewed, shows patchy area of consolidation in right lower lung -CT-PA reviewed, negative for PE -continue on antibiotics with IV levaquin -monitor for improvement Elevated Troponin with hx of CAD: troponin 0.49, no complaints of chest pain. May be secondary to atrial flutter vs CHF -continue to trend serial cardiac enzymes -EKG with aflutter, no acute ST elevation/depression -will consult cardiology Atrial Flutter, with hx of Afib: EKG reviewed, shows aflutter with HR 79 -anticoagulated on Coumadin with supratherapeutic INR 3.7 -consult pharmacy for coumadin dosing -monitor on telemetry -consult cardiology as above Acute Diastolic CHF Exacerbation: BNP elevated at 347. Echo 06/13/16 with EF 55% , mild MR, moderate TR; with severely increased pulmonary arterial pressure. -continue patient's lasix 40mg daily with KCl replacement -continue RUFINO, BB, statin, aldactone -monitor Is&Os -monitor for improvement UTI: UA with small leuks, many bacteria -preliminary urine culture with gram negative rods -continue on IV Levaquin -monitor urine culture Diabetes Mellitus: chronic -monitor Accu-checks and cover with SSI -hypoglycemia protocol Pulmonary Hypertension: seen on echo in May 2016 -continue duonebs and O2 as needed -needs outpatient follow up with pulmonology Hypertension: chronic -continue patient's home meds including lisinopril and metoprolol -monitor BP, adjust antihypertensives as needed DVT Prophylaxis: on Coumadin This note was transcribed by AIDE Taylor. I, Dr. Mali Farrell personally performed the history, physical exam, and medical decision making; and confirmed the accuracy of the information in the transcribed note. Authenticated by Dr. Mali Farrell on 05/06/17 at 13:12. Discussed Condition With Patient, Ashlee De Leon PA-C May 06, 2017 13:18 Mali Farrell MD May 06, 2017 14:39
[2017-05-06] MEDS ORDERED: LEVOFLOXACIN 750 MG PREMIX INJ 150 ML IV SCH (14:00)
--- NOTE | 2017-05-06 14:15 | EKG ---
Date Performed: 05/06/2017 Time Performed: 12:25:14 PTAGE: 86 years EKG: Baseline artifact present ATRIAL FLUTTER/TACHYCARDIA WITH RAPID VENTRICULAR RESPONSE MARKED LEFT AXIS DEVIATION POSSIBLE ANTERIOR MYOCARDIAL INFARCTION Nonspecific T wave changes ABNORMAL ECG Compared to prior electrocardiogram, rate has increased PREVIOUS TRACING : 05/05/2017 22.56 DOCTOR: Nilson Phillips Interpretating Date/Time 05/06/2017 14:13:51
[2017-05-06] MEDS: LISINOPRIL 10 MG TAB PO SCH (16:45)
[2017-05-06] MEDS: POTASSIUM CHLORIDE 10 MEQ CONTROLLED RELEASE TAB PO SCH ×2 (16:45→22:00)
[2017-05-06] MEDS: SPIRONOLACTONE 25 MG TAB PO SCH (16:46)
[2017-05-06] MEDS: FUROSEMIDE 40 MG TAB PO SCH (16:46)
[2017-05-06] MEDS: INSULIN ASPART SUPPLEMENTAL SCALE SQ SCH ×2 (17:00→23:07)
[2017-05-06] MEDS: GABAPENTIN 400 MG CAP PO SCH (18:02)
--- NOTE | 2017-05-06 20:34 | EKG ---
Date Performed: 05/05/2017 Time Performed: 22:56:05 PTAGE: 86 years EKG: ATRIAL FLUTTER/TACHYCARDIA MARKED LEFT AXIS DEVIATION POSSIBLE ANTERIOR MYOCARDIAL INFARCTI ON ABNORMAL ECG PREVIOUS TRACING : 10/24/2016 21.20 Since the previous tracing, no significant change noted DOCTOR: Sami Jordan Interpretating Date/Time 05/06/2017 20:32:32
[2017-05-06] MEDS: ZAFIRLUKAST 20 MG TAB PO SCH (22:00)
[2017-05-06] MEDS: METOPROLOL TARTRATE 25 MG TAB PO SCH (22:00)
[2017-05-06] MEDS: traZODone HCL 50 MG TAB PO SCH (22:01)
[2017-05-06] MEDS: PRAVASTATIN SOD 20 MG TAB PO SCH (22:01)
[2017-05-07] VITALS (11 sets, daily range): BP systolic 112–156; BP diastolic 58–80; PULSE 76–107; RESP 16–21; TEMP 97.5–98.5; O2SAT 97–100
[2017-05-07 01:09] LABS: TROPONIN I 0.23 NG/ML (0.02-0.05)
--- NOTE | 2017-05-07 01:45 | MB ---
cc: Jose Diallo DO DATE: 05/06/2017 REASON FOR CONSULTATION: Elevated troponin. HISTORY OF PRESENT ILLNESS: Vikki Dumont is a pleasant 86-year-old female who sees my partner, Dr. Jordan in the office and presented to [facility] on 05/06/2017 due to shortness of breath and right leg swelling. She reports that the shortness of breath has been ongoing for a long time and she has been having a cough with clear sputum. She recently had a fall with abrasions to her knees. She states otherwise she ambulates with a walker without problems. She denies any chest pain. She states overall she has a sedentary lifestyle. In seeing her, she is currently hemodynamically stable without chest pain, shortness of breath or palpitations. PAST MEDICAL HISTORY: 1. Atrial fibrillation, on Coumadin. 2. Diabetes mellitus. 3. Hypertension. 4. Hyperlipidemia. 5. Coronary artery disease. 6. Congestive heart failure. 7. Perirectal cancer. 8. Left upper extremity arterial occlusion. PAST SURGICAL HISTORY: 1. Perirectal cancer resection. 2. Tonsillectomy. 3. Appendectomy. 4. Cholecystectomy. 5. Left brachial artery embolectomy. 6. Balloon angioplasty of 2 lesions in the LAD (patient is unsure of this by history, but reviewing notes from the office, apparently she had balloon angioplasty of her LAD in 2 different positions that were extremely calcified). ALLERGIES: SULFA. MEDICATIONS: 1. Iron 325 mg daily. 2. Coumadin 3 mg daily. 3. Lovastatin 20 mg every night. 4. Metoprolol tartrate 25 mg b.i.d. 5. Lisinopril 10 mg daily. 6. Spironolactone 25 mg daily. 7. Gabapentin 400 mg t.i.d. 8. Trazodone 50 mg every night. 9. Ativan 0.5 mg every night as needed for anxiety. 10. Requip 2 mg t.i.d. 11. Potassium 10 mEq b.i.d. 12. Lasix 40 mg daily. 13. Ranitidine 150 mg daily. 14. Omeprazole 20 mg daily. 15. Fludrocortisone 0.1 mg daily. FAMILY HISTORY: Denies premature coronary artery disease or sudden cardiac within the family. REVIEW OF SYSTEMS: Fourteen systems were reviewed including osteopathic. Pertinent positives and negatives above, otherwise negative. PHYSICAL EXAMINATION: VITAL SIGNS: Temperature 98.1, heart rate 93, blood pressure 153/68, respirations 18, pulse oximetry 100% on room air. GENERAL: The patient appears well in no acute distress, alert, awake and oriented x 3. HEENT: Extraocular muscles intact. Mucous membranes moist. NECK: Supple. No JVD at 45 degrees, no carotid bruits heard bilaterally. Carotid upstroke is brisk in nature. HEART: Irregularly irregular with no noted murmurs. LUNGS: Have decreased breath sounds bilaterally. ABDOMEN: Soft, nontender, nondistended. No organomegaly noted. EXTREMITIES: Right lower extremity has 1+ pitting edema with erythema and is overall warm to the touch. Left lower extremity with trace edema and no erythema. SKIN: Warm, dry and intact. NEUROLOGIC: No focal deficits. OSTEOPATHIC: Mild kyphoscoliosis. No lordosis or paraspinal tender points. LABORATORY DATA: Hemoglobin 12.8, hematocrit 38.2, platelets 204. INR 3.7, potassium 4.1, BUN 18, creatinine 1.07. Troponin 0.46 decreasing to 0.25. Electrocardiogram (05/06/2017 at 1225) atrial flutter with rapid ventricular response, left axis deviation, poor R-wave progression, possible old anterior myocardial infarction, nonspecific ST-T wave changes. IMPRESSION: 1. Elevated troponin. 2. Right lower extremity cellulitis. 3. Pneumonia. 4. Atrial fibrillation, on Coumadin therapy. 5. Supratherapeutic INR. 6. Acute diastolic congestive heart failure. 7. Urinary tract infection. 8. Diabetes mellitus. 9. Hypertension. 10. History of coronary artery disease. 11. History of upper extremity arterial occlusion, status post embolectomy. RECOMMENDATIONS: 1. Ms. Dumont appears to have and pneumonia with UTI as well as cellulitis. 2. She does have minimally elevated troponin, although this is decreasing down. 3. She did have previous balloon angioplasty of her LAD and has a stress test showing possible inferior ischemia from the office notes. Apparently, she has been trying to treat this medically, although she is unsure of this as she does not remember her cardiac catheterization. 4. We did discuss further ischemic evaluation, but she does not want to have a cardiac catheterization and so we will continue to try to treat this medically. 5. She will continue on Coumadin for her previous arterial occlusion as well as atrial fibrillation. 6. Further recommendations will be made based on the hospital course. 7. Upon discharge, she will follow up with Dr. Jordan. Thank you for allowing me to see Vikki Dumont. If there are any questions, please do not hesitate to call. Jose Diallo DO VGP/rt , 01:12 AM , 01:43 AM
[2017-05-07 06:14] LABS: INTERNATIONAL NORMALIZED RATIO 2.2 RATIO; PROTHROMBIN TIME - PATIENT 22.1 SEC (9.8-11.6)
[2017-05-07 06:18] LABS: HEMATOCRIT 38.1 % (35.0-46.0); HEMOGLOBIN 12.9 GM/DL (11.6-15.3); MEAN CORPUSCULAR HEMOGLOBIN 33.1 PG (27.0-34.0); MEAN CORPUSCULAR HGB CONC 33.8 % (32.0-36.0); MEAN PLATELET VOLUME 10.3 FL (7.0-11.0); PLATELET COUNT 256 TH/MM3 (150-450); RED BLOOD COUNT 3.89 MIL/MM3 (4.00-5.30); RED CELL DISTRIBUTION WIDTH 18.7 % (11.6-17.2); WHITE BLOOD COUNT 8.9 TH/MM3 (4.0-11.0)
[2017-05-07 06:41] LABS: BICARBONATE 26.9 MEQ/L (21.0-32.0); CALCIUM 9.1 MG/DL (8.5-10.1); CREATININE 1.02 MG/DL (0.50-1.00)
[2017-05-07] MEDS: ZAFIRLUKAST 20 MG TAB PO SCH ×2 (06:50→23:59)
[2017-05-07] MEDS: INSULIN ASPART SUPPLEMENTAL SCALE SQ SCH ×3 (07:55→17:00)
[2017-05-07] MEDS: SODIUM CHLORIDE 0.9% FLUSH 10 ML FLUSH IV FLUSH SCH (08:24)
[2017-05-07] MEDS: POTASSIUM CHLORIDE 10 MEQ CONTROLLED RELEASE TAB PO SCH ×2 (08:24→23:59)
[2017-05-07] MEDS: FERROUS SULFATE 325 MG (65 MG ELEMENTAL IRON) TAB PO SCH (08:24)
[2017-05-07] MEDS: FLUDROCORTISONE ACETATE 0.1 MG TAB PO SCH (08:25)
[2017-05-07] MEDS: LISINOPRIL 10 MG TAB PO SCH (08:25)
[2017-05-07] MEDS: FUROSEMIDE 40 MG TAB PO SCH (08:26)
[2017-05-07] MEDS: GABAPENTIN 400 MG CAP PO SCH ×3 (08:26→18:26)
[2017-05-07] MEDS: METOPROLOL TARTRATE 25 MG TAB PO SCH ×2 (08:26→23:59)
[2017-05-07] MEDS: PANTOPRAZOLE SOD 20 MG DELAYED RELEASE TAB PO SCH (08:26)
[2017-05-07] MEDS: SPIRONOLACTONE 25 MG TAB PO SCH (08:26)
[2017-05-07 08:40] LABS: BANDS 2 % (0-6); LYMPHOCYTES 11 % (9-44); MONOCYTES 6 % (0-8); NEUTROPHIL # MANUAL DIFF 7.3 TH/MM3 (1.8-7.7); POLYS (SEG NEUTROPHILS) 80 % (16-70)
[2017-05-07] MEDS ORDERED: NON-FORMULARY DRUG (Ranitidine 150 MG) PO SCH (09:00)
--- NOTE | 2017-05-07 12:24 | PD.CARD.PN ---
Subjective Subjective Remarks No events overnight No chest pain/SOB Objective Medications Current Medications Medications (Trade) Dose Ordered Sig/Alex Route Start Time Stop Time Status Last Admin (NS Flush) 2 ml UNSCH PRN IV FLUSH 05/06/17 02:15 (NS Flush) 2 ml BID IV FLUSH 05/06/17 09:00 05/07/17 08:24 (Narcan Inj) 0.4 mg UNSCH PRN IV PUSH 05/06/17 02:15 Levofloxacin/ Dextrose 150 ml @ 100 mls/hr Q48H IV 05/06/17 14:00 05/06/17 16:45 (Ferrous Sulfate) 325 mg DAILY PO 05/07/17 09:00 05/07/17 08:24 (Florinef) 0.1 mg DAILY PO 05/07/17 09:00 (Lasix) 40 mg DAILY PO 05/06/17 13:15 05/07/17 08:26 (Neurontin) 400 mg TID PO 05/06/17 18:00 05/07/17 08:26 (Prinivil) 10 mg DAILY PO 05/06/17 13:15 05/07/17 08:25 (Ativan) 0.5 mg HS PRN PO 05/06/17 13:15 05/06/17 18:02 (Pravachol) 20 mg HS PO 05/06/17 21:00 05/06/17 22:01 (Lopressor) 25 mg BID PO 05/06/17 21:00 05/07/17 08:26 (KCl) 10 meq BID PO 05/06/17 13:15 05/07/17 08:24 (Aldactone) 25 mg DAILY PO 05/06/17 13:15 05/07/17 08:26 (Desyrel) 50 mg HS PO 05/06/17 21:00 05/06/17 22:01 (Accolate) 20 mg BID@0700,2000 PO 05/06/17 20:00 05/07/17 06:50 (Protonix) 20 mg DAILY PO 05/07/17 09:00 05/07/17 08:26 (Requip) 2 mg TID PO 05/06/17 18:00 05/07/17 08:24 (D50w (Vial) Inj) 50 ml UNSCH PRN IV PUSH 05/06/17 13:15 (Glucagon Inj) 1 mg UNSCH PRN OTHER 05/06/17 13:15 (NovoLOG SUPPLEMENTAL SCALE) 1 ACHS SLIDING SCALE SQ 05/06/17 17:00 05/06/17 23:07 Pharmacy Profile Note 0 ml @ 0 mls/hr UNSCH OTHER 05/06/17 13:15 (Coumadin) 3 mg DAILY@1600 PO 05/07/17 16:00 (Coumadin Booklet) 1 ONCE ONCE .XX 05/07/17 16:00 05/07/17 16:01 Vital Signs / I&O Vital Signs Date Time Temp Pulse Resp B/P (MAP) Pulse Ox O2 Delivery O2 Flow Rate FiO2 05/07/17 11:31 98.0 76 20 127/59 (81) 97 05/07/17 07:34 98.3 87 21 140/69 (92) 100 05/07/17 07:06 97 05/07/17 03:47 90 05/07/17 03:40 97.5 92 16 112/65 (81) 100 05/07/17 00:01 98.1 81 16 120/58 (78) 99 05/06/17 23:57 82 05/06/17 21:12 98.5 111 16 136/85 (102) 99 05/06/17 18:28 97.8 108 18 161/76 (104) 99 05/06/17 17:20 05/06/17 16:47 93 18 153/68 (96) 100 Room Air 05/06/17 12:48 98.1 85 26 142/79 (100) 96 Room Air I/O 05/06/17 05/06/17 05/06/17 05/07/17 05/07/17 05/07/17 07:00 15:00 23:00 07:00 15:00 23:00 Intake Total 100 ml 1000 ml Balance 100 ml 1000 ml Intake IV Total 100 ml 1000 ml # Voids 1 1 2 # Bowel Movements 1 1 Physical Exam GENERAL: NAD, AAOx3 SKIN: Warm and dry. HEAD: Atraumatic. Normocephalic. EYES: Pupils equal and round. No scleral icterus. No injection or drainage. ENT: No nasal bleeding or discharge. Mucous membranes pink and moist. NECK: Trachea midline. No JVD. CARDIOVASCULAR: Irregularly irregular RESPIRATORY: No accessory muscle use. Clear to auscultation. Breath sounds equal bilaterally. GASTROINTESTINAL: Abdomen soft, non-tender, nondistended. Hepatic and splenic margins not palpable. MUSCULOSKELETAL: Bilateral lower extremities with erythema NEUROLOGICAL: Awake and alert. No obvious cranial nerve deficits. Motor grossly within normal limits. Five out of 5 muscle strength in the arms and legs. Normal speech. PSYCHIATRIC: Appropriate mood and affect; insight and judgment normal. Laboratory Laboratory Tests Test 05/07/17 00:36 05/07/17 05:40 Total Creatine Kinase 101 U/L Troponin I 0.23 NG/ML White Blood Count 8.9 TH/MM3 Red Blood Count 3.89 MIL/MM3 Hemoglobin 12.9 GM/DL Hematocrit 38.1 % Mean Corpuscular Volume 98.0 FL Mean Corpuscular Hemoglobin 33.1 PG Mean Corpuscular Hemoglobin Concent 33.8 % Red Cell Distribution Width 18.7 % Platelet Count 256 TH/MM3 Mean Platelet Volume 10.3 FL CBC Comment AUTO DIFF Differential Total Cells Counted 100 Neutrophils % (Manual) 80 % Band Neutrophils % 2 % Lymphocytes % 11 % Monocytes % 6 % Eosinophils % 1 % Neutrophils # (Manual) 7.3 TH/MM3 Differential Comment FINAL DIFF MANUAL Platelet Estimate NORMAL Platelet Morphology Comment NORMAL Red Cell Morphology Comment NORMAL Prothrombin Time 22.1 SEC Prothromb Time International Ratio 2.2 RATIO Blood Urea Nitrogen 20 MG/DL Creatinine 1.02 MG/DL Random Glucose 112 MG/DL Calcium Level 9.1 MG/DL Sodium Level 137 MEQ/L Potassium Level 4.1 MEQ/L Chloride Level 99 MEQ/L Carbon Dioxide Level 26.9 MEQ/L Anion Gap 11 MEQ/L Estimat Glomerular Filtration Rate 52 ML/MIN Assessment and Plan Problem List: (1) Elevated troponin ICD Codes: R74.8 - Abnormal levels of other serum enzymes (2) Cellulitis ICD Codes: L03.90 - Cellulitis, unspecified (3) CAD (coronary artery disease) ICD Codes: I25.10 - Atherosclerotic heart disease of [place] coronary artery without angina pectoris Status: Acute (4) Hypertension ICD Codes: I10 - Essential (primary) hypertension Status: Acute (5) Paroxysmal atrial fibrillation ICD Codes: I48.0 - Paroxysmal atrial fibrillation Status: Acute Assessment and Plan 1) PNA/UTI/Cellulitis per primary team 2) Minimally elevated troponin Wants to continue medical management of her presumed CAD No further ischemic evaluation 3) Coumadin for Afib 4) Follow up with Dr. Jordan on discharge Jose Diallo DO May 07, 2017 12:24
--- NOTE | 2017-05-07 15:51 | HHI.PR ---
Subjective Remarks Pt states she feels ok. Denies any CP/SOB/N/V has a mild cough and minimal phlegm but feels much better. Appetite is good states legs are about the same. She follows w a ice cream maker in [facility]. Per family pt's legs are a bit better but not much. Pt has a habit of sleep walking and falls and gets "rug rash". Also pt does like to scratch herself. Objective Vitals Vital Signs Date Time Temp Pulse Resp B/P (MAP) Pulse Ox O2 Delivery O2 Flow Rate FiO2 05/07/17 11:31 98.0 76 20 127/59 (81) 97 05/07/17 07:34 98.3 87 21 140/69 (92) 100 05/07/17 07:06 97 05/07/17 03:47 90 05/07/17 03:40 97.5 92 16 112/65 (81) 100 05/07/17 00:01 98.1 81 16 120/58 (78) 99 05/06/17 23:57 82 05/06/17 21:12 98.5 111 16 136/85 (102) 99 05/06/17 18:28 97.8 108 18 161/76 (104) 99 05/06/17 17:20 05/06/17 16:47 93 18 153/68 (96) 100 Room Air I/O 05/06/17 05/06/17 05/06/17 05/07/17 05/07/17 05/07/17 07:00 15:00 23:00 07:00 15:00 23:00 Intake Total 100 ml 1000 ml Balance 100 ml 1000 ml Intake IV Total 100 ml 1000 ml # Voids 1 1 3 # Bowel Movements 1 2 Result Diagram: 05/07/17 0540 05/07/17 [address] Angiography 05/05/17 1110 Signed Impressions: Service Date/Time: Saturday, May 06, 2017 00:24 - CONCLUSION: The study is negative for pulmonary embolism. Momo Lopez MD Chest X-Ray 05/05/17 4887 Signed Impressions: Service Date/Time: Friday, May 05, 2017 22:43 - CONCLUSION: 1. Patchy area of consolidation in the medial right lower lung. 2. Stable cardiomegaly and bibasilar atelectasis/scarring. Momo Lopez MD Objective Remarks GENERAL: Well-nourished, well-developed elderly female patient in [place]. SKIN: erythema w scabs noted on the frontal aspect of the right leg up to knee. warm to touch. small scab noted on the left leg but mostly venous stasis changes noted on the left. no drainage CARDIOVASCULAR: Irregular rate and rhythm. S1, S2 noted. No murmur appreciated. RESPIRATORY: No accessory muscle use. Decreased breath sounds at left base, otherwise clear to auscultation. Breath sounds equal bilaterally. GASTROINTESTINAL: Abdomen soft, non-tender, nondistended. Normoactive bowel sounds x4. MUSCULOSKELETAL/NEURO: moves extremities. Awake and alert. Normal speech. PSYCHIATRIC: Appropriate mood and affect A/P Assessment and Plan 86-year-old female with history of atrial fibrillation on Coumadin, diabetes, hypertension, CAD, CHF, perirectal cancer s/p resection, DVT left arm, presents with 2 days of worsening shortness of breath and right leg swelling. RLE Cellulitis: acute -unlikely DVT while on Coumadin with supratherapeutic INR 3.7 now down to 2.2 -blood cultures with no growth to date -s/p IV cefepime/vanco, currently on IV levaquin (pharmacy to renally dose) -monitor for improvement. Will consult ID for further recs -the patient does follow with ice cream maker in [place] Community Acquired Pneumonia: patient presented with shortness of breath -CXR images reviewed, shows patchy area of consolidation in right lower lung -CT-PA reviewed, negative for PE -continue on antibiotics with IV levaquin -monitor for improvement Elevated Troponin with hx of CAD: troponin 0.49-->0.25-->0.23 -Discussed w Dr. Diallo, cards, pt and family wish to continue medical management. f/u as an outpatient. Atrial Flutter, with hx of Afib: EKG reviewed, shows aflutter with HR 79 -anticoagulated on Coumadin with supratherapeutic INR 3.7 now down to 2.2 -Pharmacy following for coumadin management. Monitor INR closely Acute Diastolic CHF Exacerbation: BNP elevated at 347. Echo 06/13/16 with EF 55% , mild MR, moderate TR; with severely increased pulmonary arterial pressure. -continue patient's lasix 40mg daily with KCl replacement -continue RUFINO, BB, statin, aldactone. monitor pt UTI: -Urine cx growing E. Coli sensitive to cipro. Pt on levaquin. Diabetes Mellitus: chronic -monitor Accu-checks and cover with SSI -hypoglycemia protocol Pulmonary Hypertension: seen on echo in May 2016 -continue duonebs and O2 as needed -needs outpatient follow up with pulmonology Hypertension: chronic -continue patient's home meds including lisinopril and metoprolol -monitor BP, adjust antihypertensives as needed DVT Prophylaxis: on Coumadin Discharge Planning ID consult for further recs regarding cellulitis. Anticipate d/c in 1-2 days once cellulitis improves. Richa Perkins MD May 07, 2017 15:51
[2017-05-07] MEDS: WARFARIN SOD 3 MG TAB PO SCH (17:10)
--- NOTE | 2017-05-07 20:13 | PD.ID.CON ---
History of Present Illness Service ID Consult Requested By Dr Rosa Reason for Consult RLE cellulitis Primary Care Physician Ashley Crook D.O. Diagnoses: History of Present Illness 86 yo female with multiple med problems including DM , neuropathy b/l feet presented with c/c of SOB CTA was negative for embolism or infiltrates BNP elevated She improved with current treatment Sh e also have been dealing with chronic b/l feet adema, discoloration of the feet, shins She was on abx on presentatin but for different reason She also noted increased sweliing rednes so f RLE She was started on levaquine she thinks her redness, swelling imprvoed No fever on presentation,., mild L shift Review of Systems Except as stated in HPI: all other systems reviewed are Neg Past Family Social History Allergies: Coded Allergies: Sulfa (Sulfonamide Antibiotics) (Unverified Allergy, Mild, 05/06/17) Past Medical History atrial fibrillation on Coumadin diabetes hypertension hyperlipidemia CAD CHF perirectal cancer s/p resection DVT left arm Past Surgical History perirectal cancer resection tonsillectomy appendectomy cholecystectomy Active Ordered Medications Medications where reviewed in EMR Antibiotics Include: levaquinr Family History PAD - father Social History remote tobacco no ETOH no drugs Physical Exam Vital Signs Vital Signs Date Time Temp Pulse Resp B/P (MAP) Pulse Ox O2 Delivery O2 Flow Rate FiO2 05/07/17 19:39 88 16 132/70 (90) 100 05/07/17 18:28 98.0 101 20 156/77 (103) 98 05/07/17 14:58 78 05/07/17 11:58 84 05/07/17 11:31 98.0 76 20 127/59 (81) 97 05/07/17 07:34 98.3 87 21 140/69 (92) 100 05/07/17 07:06 97 05/07/17 03:47 90 05/07/17 03:40 97.5 92 16 112/65 (81) 100 05/07/17 00:01 98.1 81 16 120/58 (78) 99 05/06/17 23:57 82 05/06/17 21:12 98.5 111 16 136/85 (102) 99 Physical Exam CONSTITUTIONAL/GENERAL: This is an adequately nourished patient, in no apparent distress. TUBES/LINES/DRAINS: SKIN: No jaundice, rashes, or lesions. Skin temperature appropriate. Not diaphoretic. HEAD: Atraumatic. Normocephalic. EYES: Pupils equal and round and reactive. Extraocular motions intact. No scleral icterus. No injection or drainage. Fundi not examined. ENT: Hearing grossly normal. Nose without bleeding or purulent drainage. Throat without visible erythema, exudates, masses, or lesions. NECK: Trachea midline. Supple, nontender. CARDIOVASCULAR: Regular rate and rhythm without murmurs, gallops, or rubs. No JVD. Peripheral pulses symmetric. RESPIRATORY/CHEST: Symmetric, unlabored respirations. Clear to auscultation. Breath sounds equal bilaterally. No wheezes, rales, or rhonchi. GASTROINTESTINAL: Abdomen soft, non-tender, nondistended. No hepato-splenomegaly , or palpable masses. No guarding. Bowel sounds present. GENITOURINARY: Without palpable bladder distension. MUSCULOSKELETAL: Extremities without clubbing, cyanosis, or edema. Prominene t b/l feet deformities: rocker bootor, hallux valgux b/l and hammer toes small abrasions on R 4-5 toes multiple abrasions wit crusted lesions on Rshin, no drainage, Dependent rubour b/l feet and shins trace to 1+ edema RLE Palpable 1-2 /2 b/l pedal pulses, fairly well Decerased sensation to light touch, more prominent R foot . No mottling or clubbing. brown chronic discoloration present b/l shins LYMPHATICS: No palpable cervical or supraclavicular adenopathy. NEUROLOGICAL: Awake and alert. Motor and sensory grossly within normal limits. Follows commands. Clear speech. Moves all extremities. PSYCHIATRIC: No obvious anxiety/depression. no apparent hallucinations or other psychotic thought process. Laboratory Laboratory Tests Test 05/07/17 00:36 05/07/17 05:40 Total Creatine Kinase 101 Troponin I 0.23 White Blood Count 8.9 Red Blood Count 3.89 Hemoglobin 12.9 Hematocrit 38.1 Mean Corpuscular Volume 98.0 Mean Corpuscular Hemoglobin 33.1 Mean Corpuscular Hemoglobin Concent 33.8 Red Cell Distribution Width 18.7 Platelet Count 256 Mean Platelet Volume 10.3 CBC Comment AUTO DIFF Differential Total Cells Counted 100 Neutrophils % (Manual) 80 Band Neutrophils % 2 Lymphocytes % 11 Monocytes % 6 Eosinophils % 1 Neutrophils # (Manual) 7.3 Differential Comment FINAL DIFF MANUAL Platelet Estimate NORMAL Platelet Morphology Comment NORMAL Red Cell Morphology Comment NORMAL Prothrombin Time 22.1 Prothromb Time International Ratio 2.2 Blood Urea Nitrogen 20 Creatinine 1.02 Random Glucose 112 Calcium Level 9.1 Sodium Level 137 Potassium Level 4.1 Chloride Level 99 Carbon Dioxide Level 26.9 Anion Gap 11 Estimat Glomerular Filtration Rate 52 Date/Time Source Procedure Growth Status 05/05/17 23:00 Blood Peripheral Aerobic Blood Culture - Preliminary NO GROWTH IN 2 DAYS Resulted 05/05/17 23:00 Blood Peripheral Anaerobic Blood Culture - Preliminary NO GROWTH IN 2 DAYS Resulted 05/05/17 23:20 Urine Random Urine Urine Culture - Final Escherichia Coli Complete Result Diagram: 05/07/17 0540 05/07/17 [address] Angiography 05/05/176 Signed Impressions: Service Date/Time: Saturday, May 06, 2017 00:24 - CONCLUSION: The study is negative for pulmonary embolism. Momo Lopez MD Chest X-Ray 05/05/172228 Signed Impressions: Service Date/Time: Friday, May 05, 2017 22:43 - CONCLUSION: 1. Patchy area of consolidation in the medial right lower lung. 2. Stable cardiomegaly and bibasilar atelectasis/scarring. Momo Lopez MD Assessment and Plan Assessment and Plan RLE mild acute/c hronic cellulitis most changes obnserved likley chronic including edema, depended rubor and hyperpigmentation Doubt UTI based on UA, clinical presentation - favouring asynptomatic bacteriuria dc levaquine Am/clav x 7 days Kaela Kilpatrick MD May 07, 2017 20:13
[2017-05-07] MEDS: traZODone HCL 50 MG TAB PO SCH (23:59)
[2017-05-08] VITALS (8 sets, daily range): BP systolic 129–151; BP diastolic 59–73; PULSE 79–100; RESP 17–18; TEMP 98–98.7; O2SAT 95–99
[2017-05-08] MEDS: PRAVASTATIN SOD 20 MG TAB PO SCH
[2017-05-08] MEDS: SODIUM CHLORIDE 0.9% FLUSH 10 ML FLUSH IV FLUSH SCH ×2 (00:01→08:34)
[2017-05-08] MEDS: AMOXICILLIN/CLAVULANATE K 500 MG TAB PO SCH ×3 (05:43→13:22)
[2017-05-08] MEDS: ZAFIRLUKAST 20 MG TAB PO SCH (05:43)
[2017-05-08] MEDS: INSULIN ASPART SUPPLEMENTAL SCALE SQ SCH ×3 (08:00→13:21)
[2017-05-08 08:06] LABS: PROTHROMBIN TIME - PATIENT 20.7 SEC (9.8-11.6)
[2017-05-08 08:16] LABS: BICARBONATE 25.5 MEQ/L (21.0-32.0); CALCIUM 8.9 MG/DL (8.5-10.1); CREATININE 1.07 MG/DL (0.50-1.00)
[2017-05-08] MEDS: POTASSIUM CHLORIDE 10 MEQ CONTROLLED RELEASE TAB PO SCH (08:34)
[2017-05-08] MEDS: FERROUS SULFATE 325 MG (65 MG ELEMENTAL IRON) TAB PO SCH (08:34)
[2017-05-08] MEDS: SPIRONOLACTONE 25 MG TAB PO SCH (08:35)
[2017-05-08] MEDS: FLUDROCORTISONE ACETATE 0.1 MG TAB PO SCH (08:35)
[2017-05-08] MEDS: FUROSEMIDE 40 MG TAB PO SCH (08:35)
[2017-05-08] MEDS: GABAPENTIN 400 MG CAP PO SCH ×3 (08:35→17:04)
[2017-05-08] MEDS: PANTOPRAZOLE SOD 20 MG DELAYED RELEASE TAB PO SCH (08:36)
[2017-05-08] MEDS: LISINOPRIL 10 MG TAB PO SCH (08:36)
[2017-05-08] MEDS: METOPROLOL TARTRATE 25 MG TAB PO SCH (08:39)
--- NOTE | 2017-05-08 11:04 | PD.CARD.PN ---
Subjective Subjective Remarks No events overnight No chest pain/SOB Objective Medications Current Medications Medications (Trade) Dose Ordered Sig/Alex Route Start Time Stop Time Status Last Admin (NS Flush) 2 ml UNSCH PRN IV FLUSH 05/06/17 02:15 (NS Flush) 2 ml BID IV FLUSH 05/06/17 09:00 05/08/17 08:34 (Narcan Inj) 0.4 mg UNSCH PRN IV PUSH 05/06/17 02:15 (Ferrous Sulfate) 325 mg DAILY PO 05/07/17 09:00 05/08/17 08:34 (Florinef) 0.1 mg DAILY PO 05/07/17 09:00 05/08/17 08:35 (Lasix) 40 mg DAILY PO 05/06/17 13:15 05/08/17 08:35 (Neurontin) 400 mg TID PO 05/06/17 18:00 05/08/17 08:35 (Prinivil) 10 mg DAILY PO 05/06/17 13:15 05/08/17 08:36 (Ativan) 0.5 mg HS PRN PO 05/06/17 13:15 05/06/17 18:02 (Pravachol) 20 mg HS PO 05/06/17 21:00 05/08/17 00:00 (Lopressor) 25 mg BID PO 05/06/17 21:00 05/08/17 08:39 (KCl) 10 meq BID PO 05/06/17 13:15 05/08/17 08:34 (Aldactone) 25 mg DAILY PO 05/06/17 13:15 05/08/17 08:35 (Desyrel) 50 mg HS PO 05/06/17 21:00 05/07/17 23:59 (Accolate) 20 mg BID@0700,2000 PO 05/06/17 20:00 05/08/17 05:43 (Protonix) 20 mg DAILY PO 05/07/17 09:00 05/08/17 08:36 (Requip) 2 mg TID PO 05/06/17 18:00 05/08/17 08:36 (D50w (Vial) Inj) 50 ml UNSCH PRN IV PUSH 05/06/17 13:15 (Glucagon Inj) 1 mg UNSCH PRN OTHER 05/06/17 13:15 (NovoLOG SUPPLEMENTAL SCALE) 1 ACHS SLIDING SCALE SQ 05/06/17 17:00 05/08/17 00:00 Pharmacy Profile Note 0 ml @ 0 mls/hr UNSCH OTHER 05/06/17 13:15 (Coumadin) 3 mg DAILY@1600 PO 05/07/17 16:00 05/07/17 17:10 (Augmentin) 500 mg Q8HR PO 05/07/17 22:00 05/08/17 05:43 Vital Signs / I&O Vital Signs Date Time Temp Pulse Resp B/P (MAP) Pulse Ox O2 Delivery O2 Flow Rate FiO2 05/08/17 07:14 98.0 84 18 139/73 (95) 99 05/08/17 03:36 87 05/08/17 03:07 98.0 82 17 129/59 (82) 96 05/08/17 00:01 100 05/07/17 23:07 98.5 107 17 137/80 (99) 97 05/07/17 19:39 88 16 132/70 (90) 100 05/07/17 18:28 98.0 101 20 156/77 (103) 98 05/07/17 14:58 78 05/07/17 11:58 84 05/07/17 11:31 98.0 76 20 127/59 (81) 97 I/O 05/07/17 05/07/17 05/07/17 05/08/17 05/08/17 05/08/17 07:00 15:00 23:00 07:00 15:00 23:00 Intake Total 480 ml Balance 480 ml Intake Oral 480 ml # Voids 3 2 # Bowel Movements 2 Physical Exam GENERAL: NAD, AAOx3 SKIN: Warm and dry. HEAD: Atraumatic. Normocephalic. EYES: Pupils equal and round. No scleral icterus. No injection or drainage. ENT: No nasal bleeding or discharge. Mucous membranes pink and moist. NECK: Trachea midline. No JVD. CARDIOVASCULAR: Irregularly irregular RESPIRATORY: No accessory muscle use. Clear to auscultation. Breath sounds equal bilaterally. GASTROINTESTINAL: Abdomen soft, non-tender, nondistended. Hepatic and splenic margins not palpable. MUSCULOSKELETAL: Bilateral lower extremities with erythema NEUROLOGICAL: Awake and alert. No obvious cranial nerve deficits. Motor grossly within normal limits. Five out of 5 muscle strength in the arms and legs. Normal speech. PSYCHIATRIC: Appropriate mood and affect; insight and judgment normal. Laboratory Laboratory Tests Test 05/08/17 06:27 Prothrombin Time 20.7 SEC Prothromb Time International Ratio 2.0 RATIO Blood Urea Nitrogen 27 MG/DL Creatinine 1.07 MG/DL Random Glucose 139 MG/DL Calcium Level 8.9 MG/DL Sodium Level 137 MEQ/L Potassium Level 4.1 MEQ/L Chloride Level 101 MEQ/L Carbon Dioxide Level 25.5 MEQ/L Anion Gap 11 MEQ/L Estimat Glomerular Filtration Rate 49 ML/MIN Assessment and Plan Problem List: (1) Elevated troponin ICD Codes: R74.8 - Abnormal levels of other serum enzymes (2) Cellulitis ICD Codes: L03.90 - Cellulitis, unspecified (3) CAD (coronary artery disease) ICD Codes: I25.10 - Atherosclerotic heart disease of [place] coronary artery without angina pectoris Status: Acute (4) Hypertension ICD Codes: I10 - Essential (primary) hypertension Status: Acute (5) Paroxysmal atrial fibrillation ICD Codes: I48.0 - Paroxysmal atrial fibrillation Status: Acute Assessment and Plan 1) PNA/UTI/Cellulitis per primary team 2) Minimally elevated troponin Wants to continue medical management of her presumed CAD No further ischemic evaluation Discussed with patient's [id number] Susi over the phone last night, in agreement on medical management 3) Coumadin for Afib 4) Follow up with Dr. Jordan on discharge Jose Diallo DO May 08, 2017 11:04
[2017-05-08] MEDS ORDERED: Amoxicil-Clavulanate PO (14:48)
[2017-05-08] MEDS ORDERED: ACETAMINOPHEN/HYDROcodone 325 MG/5 MG TAB PO ONE (15:00)
--- NOTE | 2017-05-08 15:00 | HHI.DS ---
Discharge Summary Admission Date May 06, 2017 at 01:02 Discharge Date: May 08, 2017 Admitting Diagnosis Cellulitis, UTI, elevated Troponin (1) Cellulitis ICD Code: L03.90 - Cellulitis, unspecified Procedures none Brief History - From Admission 86-year-old female with history of atrial fibrillation on Coumadin, diabetes, hypertension, CAD, CHF, perirectal cancer s/p resection, DVT left arm, presents from [facility] with 2 days of worsening shortness of breath and right leg swelling. She reports dyspnea on exertion and recent cough productive of clear sputum. She reports a recent fall with abrasions to the knees while she was sleep walking. She states otherwise she ambulates well with a walker. She has erythema and edema to the right leg which is new for her. Denies any open wounds /drainage. She admits to recent deconditioning and more sedentary lifestyle because of the recent shortness of breath. Denies any fevers/chills, lightheadedness, dizziness, chest pain/pressure, palpitations, abdominal pain, nausea/vomiting, diarrhea, or urinary complaints. She does report chronic constipation and believes her last BM was 1-2 days ago. She has no other medical complaints at this time. CBC/BMP: 05/07/17 0540 05/08/17 0627 Significant Findings Laboratory Tests Test 05/05/17 22:44 05/05/17 23:20 05/06/17 12:10 05/07/17 00:36 Red Blood Count 3.89 MIL/MM3 (4.00-5.30) Red Cell Distribution Width 18.4 % (11.6-17.2) Neutrophils (%) (Auto) 73.6 % (16.0-70.0) Prothrombin Time 36.8 SEC (9.8-11.6) Activated Partial Thromboplast Time 47.4 SEC (24.3-30.1) Creatinine 1.07 MG/DL (0.50-1.00) Random Glucose 146 MG/DL (74-106) Albumin 3.2 GM/DL (3.4-5.0) Estimat Glomerular Filtration Rate 49 ML/MIN (>89) Troponin I 0.46 NG/ML (0.02-0.05) 0.25 NG/ML (0.02-0.05) 0.23 NG/ML (0.02-0.05) B-Type Natriuretic Peptide 347 PG/ML (0-100) Urine Urobilinogen 4.0 MG/DL (LESS THAN Urine Leukocyte Esterase SMALL (NEG) Urine WBC 8 /hpf (0-5) Urine Bacteria MANY /hpf (NONE) Urine Mucus FEW /lpf (OCC) Test 05/07/17 05:40 05/08/17 06:27 Red Blood Count 3.89 MIL/MM3 (4.00-5.30) Red Cell Distribution Width 18.7 % (11.6-17.2) Neutrophils % (Manual) 80 % (16-70) Prothrombin Time 22.1 SEC (9.8-11.6) 20.7 SEC (9.8-11.6) Blood Urea Nitrogen 20 MG/DL (7-18) 27 MG/DL (7-18) Creatinine 1.02 MG/DL (0.50-1.00) 1.07 MG/DL (0.50-1.00) Random Glucose 112 MG/DL (74-106) 139 MG/DL (74-106) Estimat Glomerular Filtration Rate 52 ML/MIN (>89) 49 ML/MIN (>89) Imaging Last Impressions CT Angiography 05/05/17 2314 Signed Impressions: Service Date/Time: Saturday, May 06, 2017 00:24 - CONCLUSION: The study is negative for pulmonary embolism. Momo Lopez MD Chest X-Ray 05/05/172228 Signed Impressions: Service Date/Time: Friday, May 05, 2017 22:43 - CONCLUSION: 1. Patchy area of consolidation in the medial right lower lung. 2. Stable cardiomegaly and bibasilar atelectasis/scarring. Momo Lopez MD PE at Discharge GENERAL: Well-nourished, well-developed elderly female patient in [facility]. SKIN: erythema w scabs noted on the frontal aspect of the right leg up to knee. warm to touch. small scab noted on the left leg but mostly venous stasis changes noted on the left. no drainage CARDIOVASCULAR: Irregular rate and rhythm. S1, S2 noted. No murmur appreciated. RESPIRATORY: No accessory muscle use. Decreased breath sounds at left base, otherwise clear to auscultation. Breath sounds equal bilaterally. GASTROINTESTINAL: Abdomen soft, non-tender, nondistended. Normoactive bowel sounds x4. MUSCULOSKELETAL/NEURO: moves extremities. Awake and alert. Normal speech. PSYCHIATRIC: Appropriate mood and affect Hospital Course RLE Cellulitis: acute -unlikely DVT while on Coumadin with supratherapeutic INR 3.7 now down to 2.2 -blood cultures with no growth to date -s/p IV cefepime/vanco which were stopped and switched to IV levaquin ( pharmacy to [place] dose). ID was consulted and recommended switching her to augmentin x 7 days. Script in chart. -the patient does follow with learning engineer in [place] Of note: CXR images reviewed, shows patchy area of consolidation in right lower lung however, CTA reviewed, negative for PE and neg for consolidation. Pt currently not complaining of any symptoms. Elevated Troponin with hx of CAD: troponin 0.49-->0.25-->0.23 -Discussed w Dr. Diallo, cards, pt and family wish to continue medical management. f/u as an outpatient. Atrial Flutter, with hx of Afib: EKG reviewed, shows aflutter with HR 79 -anticoagulated on Coumadin with supratherapeutic INR 3.7 now down to 2.2. continue coumadin Pt Condition on Discharge: Stable Discharge Disposition: [facility] with [facility] Discharge Time: > 30 minutes Discharge Instructions DIET: Follow Instructions for: Heart Healthy Diet Activities you can perform: Regular-No Restrictions Follow up Referrals: PCP Follow-up - 1 Week New Medications: [Amoxicil-Clavulanate] () 500 MG TAB 500 MG PO Q8HR, #18 Continued Medications: Ferrous Sulfate (Ferrous Sulfate) 325 Mg (65 Mg Iron) Tablet 325 MG PO DAILY for Nutritional Supplement, #30 TAB 0 Refills Fludrocortisone (Fludrocortisone) 0.1 Mg Tab 0.1 MG PO DAILY, #30 TAB 0 Refills Furosemide (Furosemide) 40 Mg Tab 40 MG PO DAILY, #30 TAB 0 Refills Gabapentin (Gabapentin) 300 Mg Cap 400 MG PO TID, #90 CAP 0 Refills Lisinopril (Lisinopril) 10 Mg Tab 10 MG PO DAILY, #30 TAB 0 Refills Lorazepam (Lorazepam) 0.5 Mg Tab 0.5 MG PO HS PRN for ANXIETY AND/OR INSOMNIA, TAB 0 Refills Lovastatin (Lovastatin) 20 Mg Tab 20 MG PO HS for Cholesterol Management, #30 TAB 0 Refills Metoprolol Tartrate (Metoprolol Tartrate) 25 Mg Tab 25 MG PO BID, #60 TAB 0 Refills Omeprazole (Omeprazole) 20 Mg Tab 20 MG PO DAILY, #30 TAB 0 Refills Potassium Chloride Microencaps (Potassium Chloride Microencaps) 10 Meq Tab 10 MEQ PO BID for Electrolyte Replacement, #30 TAB 0 Refills Ranitidine (Ranitidine) 150 Mg Cap 150 MG PO DAILY, #30 CAP 0 Refills Ropinirole (Requip) 4 Mg Tab 2 MG PO TID, #90 TAB 0 Refills Spironolactone (Spironolactone) 25 Mg Tab 25 MG PO DAILY, #30 TAB 0 Refills Trazodone (Trazodone) 50 Mg Tab 50 MG PO HS for Control Depression, #30 TAB 0 Refills Warfarin (Warfarin) 1 Mg Tab 1 MG PO DAILY for Blood Clot Prevention, #30 TAB 0 Refills Pt takes warfarin at 1700 daily Warfarin (Warfarin) 3 Mg Tab 3 MG PO DAILY for Blood Clot Prevention, #30 TAB 0 Refills Zafirlukast (Zafirlukast) 20 Mg Tab 20 MG PO BID for Asthma Management, #60 TAB 0 Refills Richa Perkins MD May 08, 2017 15:00
[2017-05-08] MEDS: WARFARIN SOD 3 MG TAB PO SCH (17:05)
--- NOTE | 2017-05-08 17:43 | HHI.FF ---
Face to Face Verification Diagnosis: (1) Cellulitis Physical Therapy Order: Evaluate and Treat I have seen patient Vikki Dumont on 05/08/17. My clinical findings support the need for the requested home health care services because: Pt was evaluated by PT and they recommended home health PT High risk of falls I certify that my clinical findings support that this patient is homebound because: Pt was evaluated by PT and they recommended home health PT Unsteady gait/balance Richa Perkins MD May 08, 2017 17:43
== END 2017-05-08 18:48 | disposition home or self-care (01) ==
LOC: NEPE 20:52 → INTOOBSV 05-06 01:02 → NEDA 05-06 01:02 → NEDH 05-06 05:33 → NEPFCDU 05-06 17:32
PROVIDERS: ADMIT Hospitalist; ATTEND Hospitalist
DX: L03.115 Cellulitis of right lower limb (principal); R74.8 Abnormal levels of other serum enzymes; N39.0 Urinary tract infection, site not specified; B96.20 Unspecified Escherichia coli [E. coli] as the cause of diseases classified elsewhere; I48.0 Paroxysmal atrial fibrillation; I48.92 Unspecified atrial flutter; I11.0 Hypertensive heart disease with heart failure; I50.33 Acute on chronic diastolic (congestive) heart failure; I25.10 Atherosclerotic heart disease of native coronary artery without angina pectoris; I27.20 Pulmonary hypertension, unspecified; E11.40 Type 2 diabetes mellitus with diabetic neuropathy, unspecified; J18.9 Pneumonia, unspecified organism; E78.5 Hyperlipidemia, unspecified; J45.909 Unspecified asthma, uncomplicated; F51.3 Sleepwalking [somnambulism]; S80.211A Abrasion, right knee, initial encounter; S80.212A Abrasion, left knee, initial encounter; G47.30 Sleep apnea, unspecified; G25.81 Restless legs syndrome; Z79.01 Long term (current) use of anticoagulants; Z79.82 Long term (current) use of aspirin; Z86.73 Personal history of transient ischemic attack (TIA), and cerebral infarction without residual deficits; W19.XXXA Unspecified fall, initial encounter
CPT/HCPCS: 71045; 71275; 80048; 80053; 81001; 82550; 82948; 83605; 83735; 83880; 84484; 85007; 85025; 85027; 85610; 85730; 87040; 87077; 87086; 87186; 93005; 94150; 96365; 96367; 96372; 96375; 97110; 97116; 97162; 99285; G0378; G8987; G8988; J0692; J0696; J1815; J1956; J3370; J7050; Q9967

== ENCOUNTER 2017-05-09 02:11 | Emergency (ER) | payer MEDICARE, OTHER ==
[~2017-05-09] VITALS: Ht 149.9 cm; Wt 69.0 kg
[~2017-05-09 02:11] MED LIST changes: -ASPI-183 PO; +Amoxicil-Clavulanate PO; -BUME2TAB PO; -ESCI10TA PO; +FERR325T18 PO; +FLUD.1 PO; +FURO40TA PO; +LISI10TA3 PO; +LORA0.5T PO; -MECL-62 PO; +OMEP20TA93 PO; +RANI150C PO; +WARF-58 PO; +WARF4TAB52 PO
[2017-05-09 02:23] VITALS: BP 172/84; PULSE 82; RESP 18; TEMP 98; O2SAT 98
--- NOTE | 2017-05-09 03:12 | PD ---
HPI . Altered mental status Chief Complaint: Altered Mental Status Time Seen by Provider: 02:49 Travel History International Travel<30 days: No Contact w/Intl Traveler<30days: No Traveled to known affect area: No History of Present Illness HPI This patient was sent to us from a alf facility with a chief complaint of altered mental status. The [facility] reportedly states that the patient is having hallucinations and believes that there are people in her room. She is also talking to her who is . She was subsequently sent to us for further evaluation. The patient tells me that she was taken from her home to the police station for questioning. She believes that she is currently at the police station. I have reviewed her records. She was actually discharged from the hospital less than 24 hours ago. I do not see any mention in her records of dementia. PFSH Past Medical History Arthritis: Yes Asthma: Yes Atrial Fibrillation: Yes Blood Disorders: No Anxiety: Yes Depression: No Heart Rhythm Problems: Yes (a- fib) Cancer: No Cardiovascular Problems: Yes (DVT left arm) High Cholesterol: Yes Chest Pain: No Congestive Heart Failure: Yes COPD: No Cerebrovascular Accident: Yes (5 years ago) Diabetes: Yes Patient Takes Glucophage: No Endocrine: Yes Gastrointestinal Disorders: Yes (GERD) Genitourinary: No Headaches: Yes Hypertension: Yes Immune Disorder: No Implanted Vascular Access Dvce: No Insomnia: Yes Musculoskeletal: Yes (restless leg syndrome, L arm surgery DVT) Neurologic: Yes Psychiatric: Yes Reproductive: No Respiratory: Yes Immunizations Current: Yes Migraines: No Seizures: No Sleep Apnea: Yes Thyroid Disease: No Ulcer: Yes Past Surgical History Abdominal Surgery: Yes (gallbladder/ appdenix/ colon removal) Appendectomy: Yes Cholecystectomy: Yes Endocrine Surgery: Yes (tonsills) Tonsillectomy: Yes Other Surgery: Yes (tonsillectomy, appendectomy) Social History Alcohol Use: No Tobacco Use: No Substance Use: No Allergies-Medications (Allergen,Severity, Reaction): Coded Allergies: Sulfa (Sulfonamide Antibiotics) (Unverified Allergy, Mild, 05/06/17) Reported Meds & Prescriptions Reported Meds & Active Scripts Active [Amoxicil-Clavulanate] 500 MG Tab 500 Mg PO Q8HR Reported Warfarin 3 Mg Tab 3 Mg PO DAILY Warfarin 1 Mg Tab 1 Mg PO DAILY Pt takes warfarin at 1700 daily Spironolactone 25 Mg Tab 25 Mg PO DAILY Ranitidine (Ranitidine HCl) 150 Mg Cap 150 Mg PO DAILY Omeprazole 20 Mg Tab 20 Mg PO DAILY Metoprolol Tartrate 25 Mg Tab 25 Mg PO BID Lorazepam 0.5 Mg Tab 0.5 Mg PO HS PRN Lisinopril 10 Mg Tab 10 Mg PO DAILY Furosemide 40 Mg Tab 40 Mg PO DAILY Fludrocortisone (Fludrocortisone Acetate) 0.1 Mg Tab 0.1 Mg PO DAILY Ferrous Sulfate 325 Mg (65 Mg Iron) Tablet 325 Mg PO DAILY Requip (Ropinirole) 4 Mg Tab 2 Mg PO TID Trazodone (Trazodone HCl) 50 Mg Tab 50 Mg PO HS Lovastatin 20 Mg Tab 20 Mg PO HS Potassium Chloride Microencaps 10 Meq Tab 10 Meq PO BID Gabapentin 300 Mg Cap 400 Mg PO TID Zafirlukast 20 Mg Tab 20 Mg PO BID Review of Systems ROS Limitations: Altered Mental Status Physical Exam Narrative GENERAL: Pleasant, elderly woman who is in no distress. SKIN: warm/dry. Erythema of the right lower extremity. It is warm to the touch. HEAD: Normocephalic. Atraumatic. EYES: Pupils equal and round. No scleral icterus. No injection or drainage. NECK: Trachea midline. Full range of motion without pain.. CARDIOVASCULAR: Regular rate and rhythm. Heart sounds are normal. RESPIRATORY: No accessory muscle use. Clear to auscultation. Breath sounds equal bilaterally. GASTROINTESTINAL: Abdomen soft. Nontender. Bowel sounds present. Nondistended. MUSCULOSKELETAL: No obvious deformities. NEUROLOGICAL: Awake and alert. No obvious cranial nerve deficits. Motor grossly within normal limits. Normal speech. PSYCHIATRIC: The patient seems totally lucid and conversing with her. She knows her name, the day of the week, the month and the year. However, she believes that she is at the police station. Data Data Last Documented VS Vital Signs Date Time Temp Pulse Resp B/P (MAP) Pulse Ox O2 Delivery O2 Flow Rate FiO2 05/09/17 02:23 98.0 82 18 172/84 (113) 98 MDM Medical Decision Making Medical Screen Exam Complete: Yes Emergency Medical Condition: Yes Medical Record Reviewed: Yes (patient was admitted here 05/05-05/08 for cellulitis of right lower extremity. She also had a urinary tract infection. Culture positive for Escherichia coli sensitivity to Augmentin. She was discharged on Augmentin. Other medical problems include HTN, CAD, AF, DM) Differential Diagnosis Differential diagnosis of altered mental status includes but is not limited to infection, electrolyte abnormality, neurological event, intoxication Narrative Course This patient is brought to us from a alf facility because of hallucinations and talking to her . I don't see any mention of dementia in her records but I suspect that she does have dementia. She was just discharged from the hospital less than 12 hours ago. She does not have any physical exam or vital sign abnormalities that would necessitate a repeat laboratory/radiographic evaluation. She is medically cleared to go back to the [facility]. Her hallucinations and probable dementia can be appropriately evaluated as an outpatient at the alf facility. Diagnosis Primary Impression: Hallucinations Additional Instructions: Follow-up with primary care for evaluation of possible dementia Disposition: 03 DISCHARGE TO SNF Condition: Kate Hurst MD May 09, 2017 03:12
[2017-05-09 08:00] VITALS: BP 167/81; PULSE 85; RESP 17; O2SAT 99
== END 2017-05-09 09:13 ==
LOC: NEPC 02:11 → NEPD 09:13
DX: R44.3 Hallucinations, unspecified (principal); J45.909 Unspecified asthma, uncomplicated; I48.91 Unspecified atrial fibrillation; F41.9 Anxiety disorder, unspecified; E78.00 Pure hypercholesterolemia, unspecified; I11.0 Hypertensive heart disease with heart failure; I50.9 Heart failure, unspecified; E11.9 Type 2 diabetes mellitus without complications; Z86.718 Personal history of other venous thrombosis and embolism; Z86.73 Personal history of transient ischemic attack (TIA), and cerebral infarction without residual deficits; Z88.2 Allergy status to sulfonamides; Z79.01 Long term (current) use of anticoagulants; Z79.899 Other long term (current) drug therapy
CPT/HCPCS: 99283